=== PATIENT | male | born 1985 | race Two or more races ===

== ENCOUNTER 2024-08-21 16:00 | Emergency (ER) | payer OTHER ==
[~2024-08-21] VITALS: Ht 160 cm; Wt 104.8 kg
[~2024-08-21 16:00] MED LIST: DIVA-139 PO; LEVO500T31 PO; METR500T PO
[2024-08-21 16:59] VITALS: BP 115/82; RESP 18; TEMP 97.9; O2SAT 97
[2024-08-21] MEDS: SODIUM CHLORIDE 0.9% 500 ML IV ONE (17:16)
[2024-08-21] MEDS: cefTRIAXone 1GM/50ML D5W 50 ML IV ONE (17:38)
[2024-08-21] MEDS ORDERED: PSEU120T18 PO (17:50)
[2024-08-21] MEDS ORDERED: AUG875T PO (17:50)
[2024-08-21] MEDS ORDERED: AZIT-43 PO (17:50)
[2024-08-21 17:58] VITALS: PULSE 111
[2024-08-21 18:10] LABS: Basophils # (auto) 0 10 ^3/uL (0-0.2); Basophils % (auto) 0.5 % (0.0-2.0); Eosinophils # (auto) 0.1 10 ^3/uL (0-0.8); Eosinophils % (auto) 1.4 % (0.0-7.0); Hemoglobin 13.9 g/dL (13.5-17.5); Lymphocytes # (auto) 1.2 10 ^3/uL (0.4-5.4); Lymphocytes % (auto) 14.7 % (10.0-50.0); Mean Corpuscular Hemoglobin 31.1 pg (28.0-32.0); Mean Corpuscular Hgb Conc. 32.4 g/dL (32.0-36.0); Monocytes # (auto) 0.5 10 ^3/uL (0-1.3); Monocytes % (auto) 6.4 % (0.0-12.0); Neutrophils # (auto) 6.2 10 ^3/uL (1.6-8.6); Nucleated Red Blood Cells % 0.1 %; Platelet Count (auto) 191 10^3/uL (140-450); Red Blood Cells 4.47 10^6/uL (4.5-5.90); Red Cell Distribution Width 13.9 % (11.8-14.3)
[2024-08-21 18:15] LABS: Chloride 114 mmol/L (98-107); Potassium 4.4 mmol/L (3.5-5.1); Sodium 141 mmol/L (136-145)
[2024-08-21 18:17] LABS: Anion Gap 4 (5-15); Carbon Dioxide 23 mmol/L (20-31)
[2024-08-21 18:22] LABS: BUN/Creatinine Ratio 9.3 (10.0-20.0); Blood Urea Nitrogen 10 mg/dL (9-23); Glucose 149 mg/dL (74-106)
== END 2024-08-21 18:00 | disposition home or self-care (01) ==
LOC: ER 16:08
DX: J18.9 Pneumonia, unspecified organism (principal)
CPT/HCPCS: 36415; 71046; 80048; 83880; 85025; 93005; 96365; 99285; J0696; J7040

== ENCOUNTER 2024-09-03 11:55 | Inpatient (IN) | payer OTHER ==
[~2024-09-03] VITALS: Ht 160 cm; Wt 92.9 kg
[~2024-09-03 11:55] MED LIST changes: +AUG875T PO; +AZIT-43 PO; +FURO20TA3 PO; +PSEU120T18 PO
--- NOTE | 2024-09-03 12:09 | ED.PDOC ---
SOB-HPI HPI Comments 39Y M with PMHx schizophrenia, prediabetes, skin graft surgery, and chol ecystectomy presents to ED for chief complaint SOB with cough x1day. Pt has tried using nasal spray and Mucinex but symptoms have not improved. Pt denies alcohol, illicit drug, and tobacco use. No known allergies. Chief Complaint: Shortness of Breath Time Seen by MD: 12:01 Primary Care Provider: ZION Jewell notes: Medications, Allergies Information Source: Patient Mode of Arrival: Ambulatory Severity: Mild Timing: Days Duration: Since onset Context: At Rest PE Risk Factors: None History of: None Modifying Factors: Nothing Associated Signs and Symptoms: Cough If cough with SOB: Non-Productive Past Medical History PAST MEDICAL HISTORY: Schizophrenia Past Medical History (Other): Prediabetes Surgical History: Cholecystectomy, Denies all surgeries Surgical History (Other): Skin graft Family History Family History: Unknown Social History Smoker: Non-Smoker Alcohol: Denies ETOH Use Drugs: Denies Drug Use Lives In: Home Constitutional: denies: chills, diaphoresis, fatigue, fever, malaise, sweats, weakness, others EENTM: denies: blurred vision, double vision, ear bleeding, ear discharge, ear drainage, ear pain, ear ringing, eye pain, eye redness, hearing loss, mouth pain, mouth swelling, nasal discharge, nose bleeding, nose congestion, nose pain, photophobia, tearing, throat pain, throat swelling, voice changes, others Respiratory: reports: cough, shortness of breath; denies: hemoptysis, orthopnea, SOB at rest, SOB with excertion, stridor, wheezing, others Cardiovascular: denies: chest pain, dizzy spells, diaphoresis, Dyspnea on exertion, edema, irregular heart beat, left arm pain, lightheadedness, palpit ations, PND, syncope, others Gastrointestinal: denies: abdomen distended, abdominal pain, blood streaked b owels, constipated, diarrhea, dysphagia, difficulty swallowing, hematemesis, melena, nausea, poor appetite, poor fluid intake, rectal bleeding, rectal pain, vomiting, others Genitourinary: denies: burning, dysuria, flank pain, frequency, hematuria, incontinence, penile discharge, penile sore, pain, testicle pain, testicle swelling, urgency, others Neurological: denies: dizziness, fainting, headache, left sided numbness, left sided weakness, numbness, paresthesia, pre-existing deficit, right sided numbness, right sided weakness, seizure, speech problems, tingling, tremors, weakness, others Musculoskeletal: denies: back pain, gout, joint pain, joint swelling, muscle pain, muscle stiffness, neck pain, others Integumetry: denies: bruises, change in color, change in hair/nails, dryness, laceration, lesions, lumps, rash, wounds, others Allergic/Immunocompromised: denies: Difficulty Healing, Frequent Infections, Hives, Itching, others Hematologic/Lymphatic: denies: anemia, blood clots, easy bleeding, easy bruisi ng, swollen glands, others Endocrine: denies: excessive hunger, excessive sweating, excessive thirst, exce ssive urination, flushing, intolerance to cold, intolerance to heat, unexplained weight gain, unexplained weight loss, others Psychiatric: denies: anxiety, bipolar disorder, depression, hopeless, panic disorder, schizophrenia, sleepless, suicidal, others All Other Systems: Reviewed and Negative Physical Exam General Appearance: No Apparent Distress, Normal HEENT: Normal ENT Inspection, Pharynx Normal, TMs Normal Neck: Full Range of Motion, Non-Tender, Normal, Normal Inspection Respiratory: Chest Non-Tender, Lungs Clear, No Accessory Muscle Use, No Respiratory Distress, Normal Breath Sounds Cardiovascular: No Edema, No JVD, No Murmur, No Gallop, Normal Peripheral Pulses, Regular Rate/Rhythm Breast Exam: Deferred Gastrointestinal: No Organomegaly, Non Tender, No Pulsatile Mass, Normal Bowel Sounds, Soft Genitalia: Deferred Pelvic: Deferred Rectal: Deferred Extremities: No calf tenderness, Normal capillary refill, Normal inspection, Normal range of motion, Non-tender, No pedal edema Musculoskeletal : Apperance: Normal Neurologic: Alert, 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 Was a procedure done?: No Differential Dx Differential Diagnosis: Anxiety, Asthma, Bronchitis, Cardiogenic Shock, CHF, COPD, Dysrhythmia, Hypertension, Hyperventilation, Hyponatremia, Myocardial infarction, Panic Attack, Pneumonia, Pneumothorax, PSVT, Pulmonary Embolism, Respiratory Distress, URI X-Ray, Labs, Meds, VS Vital Signs Date Time Temp Pulse Resp B/P (MAP) Pulse Ox O2 Delivery O2 Flow Rate FiO2 09/03/24 14:39 117 09/03/24 13:54 118 20 98/68 (78) 98 09/03/24 13:54 118 20 98 Room Air* 0 21 09/03/24 12:04 97.9 120 18 110/68 (82) 96 Lab Test 09/03/24 14:01 Range/Units White Blood Count 8.5 4.4-10.8 10^3/uL Red Blood Count 4.67 4.5-5.90 10^6/uL Hemoglobin 14.5 13.5-17.5 g/dL Hematocrit 44.4 41.0-53.0 % Mean Corpuscular Volume 95.1 80.0-100.0 fL Mean Corpuscular Hemoglobin 31.1 28.0-32.0 pg Mean Corpuscular Hemoglobin Concent 32.7 32.0-36.0 g/dL Red Cell Distribution Width 13.8 11.8-14.3 % Platelet Count 182 140-450 10^3/uL Mean Platelet Volume 10.8 6.9-10.8 fL Neutrophils (%) (Auto) 68.8 37.0-80.0 % Lymphocytes (%) (Auto) 21.5 10.0-50.0 % Monocytes (%) (Auto) 7.6 0.0-12.0 % Eosinophils (%) (Auto) 1.4 0.0-7.0 % Basophils (%) (Auto) 0.7 0.0-2.0 % Neutrophils # (Auto) 5.8 1.6-8.6 10 ^3/uL Lymphocytes # (Auto) 1.8 0.4-5.4 10 ^3/uL Monocytes # (Auto) 0.6 0-1.3 10 ^3/uL Eosinophils # (Auto) 0.1 0-0.8 10 ^3/uL Basophils # (Auto) 0.1 0-0.2 10 ^3/uL Nucleated Red Blood Cells 0.1 % Sodium Level 142 136-145 mmol/L Potassium Level 4.4 3.5-5.1 mmol/L Chloride Level 108 H 98-107 mmol/L Carbon Dioxide Level 25 20-31 mmol/L Anion Gap 9 5-15 Blood Urea Nitrogen 20 9-23 mg/dL Creatinine 1.35 H 0.700-1.30 mg/dL Glomerular Filtration Rate Calc 69 >90 mL/min BUN/Creatinine Ratio 14.8 10.0-20.0 Serum Glucose 101 74-106 mg/dL Calcium Level 10.0 8.7-10.4 mg/dL Troponin I High Sensitivity 2277 *H </=54 ng/L B-Type Natriuretic Peptide 893.73 0-100 pg/mL [place] [id number] Ph: [phone] DIAGNOSTIC IMAGING Diagnostic Imaging Report : [id number] Signed PATIENT: DOTTIE KENNEDY ACCT: [id number] UNIT: [id number] : 1985 LOC: ER ROOM / BED: / AGE / SEX: 39 / M ADM STATUS: REG ER SERVICE 1202 ORDERING PHYSICIAN: JACK MCGARRY MD PROCEDURE(s): CXRP - CHEST PORTABLE REASON: cough ORDER NUMBER(s): [id number], ACCESSION NUMBER(s): [id number] CHEST RADIOGRAPH Indication: Cough Technique: Single frontal view of the chest was obtained Comparison: 08/21/2024 FINDINGS: Lines and Tubes: None Lungs: Bilateral interstitial prominence without focal airspace disease. Pleura: No effusion. No pneumothorax. Cardiomediastinal contours: Cardiomegaly. Bones: No acute osseous abnormality. IMPRESSION: 1. Pulmonary congestion. ATED BY: RASHEEDA LOVE MD DICTATED DATE/TIME: 09/03/241254 SIGNED BY: RASHEEDA LOVE MD SIGNED DATE/TIME: 09/03/241254 CC: Time of 1ST Reevaluation: 12:31 Reevaluation 1ST: Unchanged Time of 2ND Reevaluation: 15:04 Reevaluation 2ND: Unchanged Patient Education/Counseling: Diagnosis, Treatment Family Education/Counseling: No Family Present Additional Information although pt does not have any cardiac history, he has elevated TROP, consisting with NSTEMI, and evidence of CHF. he will be admitted Departure 1 Departure Time of Disposition: 15:05 Impression: Primary Impression: NSTEMI (non-ST elevated myocardial infarction) Additional Impression: CHF (congestive heart failure) Qualified Codes: I50.21 - Acute systolic (congestive) heart failure Disposition: ADMITTED INPATIENT Admit to: ICU Condition: Serious Critical Care Note Critical Care Time?: Yes (55 min-critical care time only) Critical care comment: due to real concerns for pt's condition deteriorating, the patient's care required my highest level of attention and prepareness to intervene. i assessed this patient, formulated a plan of care, communicated with medical personnel,reveiwed data and results,and conversed with chain sales consultant, reassessed the patient's condition and response to treatments. total time include at least 50% face-face interactions and does not include any procedures Stability Stability form required: No Heart Score Heart Score: Heart Score Response (Comments) Value History Slightly Suspicious 0 EKG Repolarization Disturb 1 Age <45 0 Risk Factors No known risk factors 0 Troponin >3 x's Normal limit 2 Total 3 I personally scribed for JACK MCGARRY MD ([employer]) on 09/03/24 at 12:09. Electronically submitted by Loida Qiu ([employer]). I personally scribed for JACK MCGARRY MD ([email or web address]) on 09/03/24 at 13:24. Electronically submitted by Loida Qiu ([employer]). JACK MCGARRY MD Sep 03, 2024 12:09
--- NOTE | 2024-09-03 12:57 | DVH ---
CHEST RADIOGRAPH Indication: Cough Technique: Single frontal view of the chest was obtained Comparison: 08/21/2024 FINDINGS: Lines and Tubes: None Lungs: Bilateral interstitial prominence without focal airspace disease. Pleura: No effusion. No pneumothorax. Cardiomediastinal contours: Cardiomegaly. Bones: No acute osseous abnormality. IMPRESSION: 1. Pulmonary congestion.
[2024-09-03 13:54] VITALS: PULSE 118; RESP 20; O2SAT 98
[2024-09-03 14:12] LABS: Basophils # (auto) 0.1 10 ^3/uL (0-0.2); Basophils % (auto) 0.7 % (0.0-2.0); Eosinophils # (auto) 0.1 10 ^3/uL (0-0.8); Eosinophils % (auto) 1.4 % (0.0-7.0); Hematocrit 44.4 % (41.0-53.0); Hemoglobin 14.5 g/dL (13.5-17.5); Lymphocytes # (auto) 1.8 10 ^3/uL (0.4-5.4); Lymphocytes % (auto) 21.5 % (10.0-50.0); Mean Corpuscular Hemoglobin 31.1 pg (28.0-32.0); Mean Corpuscular Hgb Conc. 32.7 g/dL (32.0-36.0); Mean Corpuscular Volume 95.1 fL (80.0-100.0); Monocytes # (auto) 0.6 10 ^3/uL (0-1.3); Monocytes % (auto) 7.6 % (0.0-12.0); Neutrophils # (auto) 5.8 10 ^3/uL (1.6-8.6); Neutrophils % (auto) 68.8 % (37.0-80.0); Nucleated Red Blood Cells % 0.1 %; Platelet Count (auto) 182 10^3/uL (140-450); Red Blood Cells 4.67 10^6/uL (4.5-5.90); Red Cell Distribution Width 13.8 % (11.8-14.3); White Blood Cell 8.5 10^3/uL (4.4-10.8)
[2024-09-03 14:37] LABS: Chloride 108 mmol/L (98-107); Potassium 4.4 mmol/L (3.5-5.1); Sodium 142 mmol/L (136-145)
[2024-09-03 14:38] LABS: Anion Gap 9 (5-15); Carbon Dioxide 25 mmol/L (20-31)
[2024-09-03 14:43] LABS: BUN/Creatinine Ratio 14.8 (10.0-20.0); Blood Urea Nitrogen 20 mg/dL (9-23); Glucose 101 mg/dL (74-106)
--- NOTE | 2024-09-03 15:05 | ECG ---
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
[2024-09-03] MEDS: NTG 0.1MG/HR TOPICAL PATCH TD ONE (15:18)
[2024-09-03] MEDS: FUROSEMIDE 40 MG/4 ML VIAL IV ONE (15:21)
[2024-09-03] MEDS: ASPirin 325 MG TAB PO ONE (15:21)
--- NOTE | 2024-09-03 15:41 | ECG ---
[facility] Test Date: 2024-09-03 Test Time: 15:40:25 Pat Name: DOTTIE KENNEDY Department: ED Room: 0265D Gender: M Cell Manager: : 1985 Requested By: JACK MCGARRY Order Number: [id number] Reading MD: Thad Apple Measurements Intervals [place] Rate: 121 P: 78 MN: 164 QRS: 0 QRSD: 101 T: 17 QT: 328 QTc: 466 Interpretive Statements Sinus tachycardia Probable left atrial enlargement Anterior infarct, old Electronically Signed On 09-07-2024 11:14:38 PST by Thad Apple Please click the below link to view image of tracing.
[2024-09-03] MEDS ORDERED: HYDROcodone-ACET 5/325MG TAB PO PRN (17:00)
[2024-09-03] MEDS ORDERED: NITROGLYCERIN 0.4 MG SL TAB SL PRN (17:00)
[2024-09-03] MEDS ORDERED: MORPHINE SULFATE INJ 2 MG/ml SYRG IV PRN ×2 (17:00)
[2024-09-03] MEDS ORDERED: ACETAMINOPHEN 325 MG TAB PO PRN (17:00)
[2024-09-03 17:23] LABS: Triglycerides 92 mg/dL (< 150)
[2024-09-03 17:24] LABS: LDL Cholesterol 66 mg/dL (< 100)
[2024-09-03 17:25] LABS: Cholesterol 112 mg/dL (< 200); HDL Cholesterol 34 mg/dL (40-59)
--- NOTE | 2024-09-03 17:27 | DVHHP2 ---
History of Present Illness Reason for Visit: Shortness of breath History of Present Illness This 39-year-old male with past medical history of schizophrenia, prediabetes, and obesity presents in the ED with a chief complaint of shortness of breath x1 day. The patient reports progressive shortness of breath associated with cough, chest pain that is sharp in nature, left arm numbness with tingling sensation started yesterday. Patient states that he is currently taking antibiotic for pneumonia from his recent ED visit. The patient denies history of NE or CHF. Reports history of ASD. Denies tobacco, illicit drug, or ETOH abuse. Past Medical History As stated in HPI Past Surgical History Cholecystectomy Family History Reviewed, non-contributory to the management of this case. Past Social History The patient lives at home, denies smoking, alcohol or illicit drugs abuse. Review of Systems Constitutional: Yes: Malaise; No: Fever, Chills, Sweats, Weakness, Other Eyes: No: Pain, Vision change, Conjunctivae inflammation, Eyelid inflammation, Other, Redness ENT: No: Ear pain, Ear discharge, Nose pain, Nose discharge, Nose congestion, Mouth pain, Mouth swelling, Throat pain, Throat swelling, Other Respiratory: Cough, Shortness of breath; No: Dry, SOB with excertion, Wheezing, Hemoptysis, Pleuritic Pain, Sputum, Wheezing, Other Cardiovascular: Chest Pain; No: Palpitations, Orthopnea, Paroxysmal Noc. Dyspnea, Edema, Lt Headedness, Other Gastrointestinal: No: Nausea, Vomiting, Abdominal Pain, Diarrhea, Constipation, Melena, Hematochezia, Other Genitourinary: No Dysuria, No Frequency, No Incontinence, No Hematuria, No Retention, No Other Musculoskeletal: No: other, neck pain, shoulder pain, arm pain, back pain, hand pain, leg pain, foot pain Skin: No: Rash, Lesions, Jaundice, Bruising, Other Neurological: No: Weakness, Numbness, Incoordination, Change in speech, Confusion, Seizures, Other Allergies: Coded Allergies: NO KNOWN ALLERGIES (Unverified , 04/02/19) Exam Vital Signs Vital Signs Date Time Temp Pulse Resp B/P (MAP) Pulse Ox O2 Delivery O2 Flow Rate FiO2 09/03/24 16:18 118/80 09/03/24 15:15 61 09/03/24 13:54 20 98 11/3/24 13:54 Room Air* 0 21 11/3/24 12:04 97.9 General Appearance: Alert, Oriented X3, Cooperative, mild distress HEENT: Atraumatic, PERRLA, EOMI, Mucous membr. moist/pink Respiratory: Clear to auscultation, Normal air movement Cardiovascular: Regular rate, Normal S1, Normal S2 Abdominal: Normal bowel sounds, Soft, No tenderness Extremities: No clubbing, No cyanosis, No edema Skin: No rashes, No breakdown, No significant lesion Neuro: Normal gait, Normal speech, Strength at 5/5 X4 ext, Normal tone, Sensation intact Psych/Mental Status: Mental status NL Labs/Xrays Labs Test 09/03/24 15:02 09/03/24 14:01 Range/Units Troponin I High Sensitivity 2403 *H </=54 ng/L White Blood Count 8.5 4.4-10.8 10^3/uL Red Blood Count 4.67 4.5-5.90 10^6/uL Hemoglobin 14.5 13.5-17.5 g/dL Hematocrit 44.4 41.0-53.0 % Mean Corpuscular Volume 95.1 80.0-100.0 fL Mean Corpuscular Hemoglobin 31.1 28.0-32.0 pg Mean Corpuscular Hemoglobin Concent 32.7 32.0-36.0 g/dL Red Cell Distribution Width 13.8 11.8-14.3 % Platelet Count 182 140-450 10^3/uL Mean Platelet Volume 10.8 6.9-10.8 fL Neutrophils (%) (Auto) 68.8 37.0-80.0 % Lymphocytes (%) (Auto) 21.5 10.0-50.0 % Monocytes (%) (Auto) 7.6 0.0-12.0 % Eosinophils (%) (Auto) 1.4 0.0-7.0 % Basophils (%) (Auto) 0.7 0.0-2.0 % Neutrophils # (Auto) 5.8 1.6-8.6 10 ^3/uL Lymphocytes # (Auto) 1.8 0.4-5.4 10 ^3/uL Monocytes # (Auto) 0.6 0-1.3 10 ^3/uL Eosinophils # (Auto) 0.1 0-0.8 10 ^3/uL Basophils # (Auto) 0.1 0-0.2 10 ^3/uL Nucleated Red Blood Cells 0.1 % Sodium Level 142 136-145 mmol/L Potassium Level 4.4 3.5-5.1 mmol/L Chloride Level 108 H 98-107 mmol/L Carbon Dioxide Level 25 20-31 mmol/L Anion Gap 9 5-15 Blood Urea Nitrogen 20 9-23 mg/dL Creatinine 1.35 H 0.700-1.30 mg/dL Glomerular Filtration Rate Calc 69 >90 mL/min BUN/Creatinine Ratio 14.8 10.0-20.0 Serum Glucose 101 74-106 mg/dL Calcium Level 10.0 8.7-10.4 mg/dL B-Type Natriuretic Peptide 893.73 0-100 pg/mL PROCEDURE(s): CXRP - CHEST PORTABLE REASON: cough ORDER NUMBER(s): [id number], ACCESSION NUMBER(s): [id number] CHEST RADIOGRAPH Indication: Cough Technique: Single frontal view of the chest was obtained Comparison: 08/21/2024 FINDINGS: Lines and Tubes: None Lungs: Bilateral interstitial prominence without focal airspace disease. Pleura: No effusion. No pneumothorax. Cardiomediastinal contours: Cardiomegaly. Bones: No acute osseous abnormality. IMPRESSION: 1. Pulmonary congestion. Assessment/Plan Assessment/Plan # NSTEMI # Rule out CHF # ?hx of ASD # pulmonary congestion Admit to [facility] ACS protocol--heparin drip, aspirin, statins IV diuresis Cardiology consult Echocardiogram NPO after midnight Repeat x-ray in a.m. # Rule out PE V/Q scan pending heparin gtt # ANNIE, possible VMN, possible cardiorenal Soft IV fluid Consider Nephrology consult if does not improve Monitor intake and output # morbid obesity # prediabetes Lifestyle modification counseled with diet, regular exercise, and weight loss Check lipid panel, A1c, TSH # hx schizophrenia Medical plan discussed patient Plan discussed with: Patient Date of Service: Sep 03, 2024 Billing Provider: RACHEL SHAH Common Visit Codes: 43275-[id number] INP/OBS CARE (HIGH) RACHEL SHAH Sep 03, 2024 17:27
[2024-09-03 17:40] LABS: INR 1.35 (0.9-1.15); Partial Thromboplastin Time 25.4 SEC (24.5-34.5)
[2024-09-03] MEDS: HEPARIN SODIUM (PORCINE) 5000 UNITS/ML 1ML VIAL IV ONE (18:00)
[2024-09-03] MEDS: HEPARIN DRIP/D5W 100UNITS/ML 250 ML IV SCH (18:00)
[2024-09-03] MEDS: METOPROLOL TARTRATE 1MG/1ML-5ML VIAL IV ONE (18:14)
[2024-09-03] MEDS: ALPRAZolam 0.25 MG TAB PO ONE (18:15)
[2024-09-03 19:30] VITALS: PULSE 113; RESP 26; O2SAT 92
[2024-09-03 20:15] LABS: Basophils # (auto) 0.1 10 ^3/uL (0-0.2); Hemoglobin 14.5 g/dL (13.5-17.5); Mean Corpuscular Hgb Conc. 32.5 g/dL (32.0-36.0); Nucleated Red Blood Cells % 0.1 %; Red Blood Cells 4.68 10^6/uL (4.5-5.90); White Blood Cell 8.3 10^3/uL (4.4-10.8)
[2024-09-03 20:18] LABS: Basophils % (auto) 1.2 % (0.0-2.0); Eosinophils # (auto) 0.1 10 ^3/uL (0-0.8); Eosinophils % (auto) 1.5 % (0.0-7.0); Hematocrit 44.6 % (41.0-53.0); Lymphocytes # (auto) 1.8 10 ^3/uL (0.4-5.4); Lymphocytes % (auto) 21.3 % (10.0-50.0); Mean Corpuscular Volume 95.4 fL (80.0-100.0); Monocytes # (auto) 0.6 10 ^3/uL (0-1.3); Monocytes % (auto) 6.8 % (0.0-12.0); Neutrophils # (auto) 5.7 10 ^3/uL (1.6-8.6); Neutrophils % (auto) 69.2 % (37.0-80.0); Platelet Count (auto) 194 10^3/uL (140-450); Red Cell Distribution Width 14.3 % (11.8-14.3)
[2024-09-03] MEDS: ATORVASTATIN 20 MG TAB PO SCH (21:53)
[2024-09-04] VITALS (26 sets, daily range): BP systolic 92–119; BP diastolic 60–88; PULSE 94–116; RESP 12–29; TEMP 97.4–98.3; O2SAT 93–98
[2024-09-04 00:48] LABS: INR 1.47 (0.9-1.15); Partial Thromboplastin Time 33.7 SEC (24.5-34.5); Prothrombin Time 15.1 sec (9.3-11.8)
[2024-09-04] MEDS: HEPARIN SODIUM (PORCINE) 5000 UNITS/ML 1ML VIAL IV ONE (01:13)
[2024-09-04] MEDS: HEPARIN DRIP/D5W 100UNITS/ML 250 ML IV SCH ×3 (01:13→22:56)
[2024-09-04 02:31] LABS: Amphetamine Screen, Urine Neg (NEGATIVE); Barbiturate Scree,Urine Neg (NEGATIVE); Benzodiazephine Screen, Urine Pos (NEGATIVE); Cocaine Screen, Urine Neg (NEGATIVE); Opiate Scree,Urine Neg (NEGATIVE); Phencyclidine Screen, Urine Neg (NEGATIVE)
[2024-09-04 02:32] LABS: Cannabinoid Screen, Urine Neg (NEGATIVE)
[2024-09-04 02:38] LABS: Urine Bacteria FEW /hpf (None Seen); Urine Blood Negative /uL (Negative); Urine Clarity Clear (Clear); Urine Color Yellow (Yellow); Urine Hyaline Cast MOD /lpf (0 - 2); Urine Mucus FEW (None Seen); Urine Protein, UAD 1+ (Negative); Urine Urobilinogen Normal (Negative); Urine WBC 1 /hpf (0 - 3); Urine pH 5.5 (5.0-9.0)
[2024-09-04 05:33] LABS: Basophils # (auto) 0.1 10 ^3/uL (0-0.2); Basophils % (auto) 0.7 % (0.0-2.0); Eosinophils # (auto) 0.1 10 ^3/uL (0-0.8); Eosinophils % (auto) 1.4 % (0.0-7.0); Hematocrit 41.1 % (41.0-53.0); Hemoglobin 13.2 g/dL (13.5-17.5); Lymphocytes # (auto) 2.1 10 ^3/uL (0.4-5.4); Lymphocytes % (auto) 26.4 % (10.0-50.0); Mean Corpuscular Hemoglobin 30.6 pg (28.0-32.0); Mean Corpuscular Volume 95.7 fL (80.0-100.0); Monocytes # (auto) 0.8 10 ^3/uL (0-1.3); Monocytes % (auto) 9.7 % (0.0-12.0); Neutrophils % (auto) 61.8 % (37.0-80.0); Nucleated Red Blood Cells % 0.2 %; Platelet Count (auto) 177 10^3/uL (140-450); Red Cell Distribution Width 13.9 % (11.8-14.3)
[2024-09-04 05:47] LABS: Alanine Aminotransferase 37 U/L (7-40); Albumin 4.1 g/dL (3.2-4.8); Alkaline Phosphatase 60 U/L (46-116); Anion Gap 5 (5-15); Aspartate Aminotransferase 33 U/L (13-40); BUN/Creatinine Ratio 12.8 (10.0-20.0); Blood Urea Nitrogen 17 mg/dL (9-23); Calcium 9.4 mg/dL (8.7-10.4); Carbon Dioxide 27 mmol/L (20-31); Chloride 107 mmol/L (98-107); Glucose 105 mg/dL (74-106); Potassium 4.4 mmol/L (3.5-5.1); Sodium 139 mmol/L (136-145)
[2024-09-04 05:48] LABS: Bilirubin, Total 1.4 mg/dL (0.2-1.0); Total Protein 6.3 g/dL (5.7-8.2)
--- NOTE | 2024-09-04 07:11 | DVH ---
CLINICAL INFORMATION: 39 years old, Male; Pulmonary Congestion. TECHNIQUE: Single AP portable chest radiograph was obtained. COMPARISON: XY CHEST PORTABLE on DOS: 09/03/24 FINDINGS: Unchanged cardiomegaly and prominence of the pulmonary vasculature. Small right pleural effusion with overlying atelectasis, may be new or more conspicuous compared with the prior exam. No other signifi cant interval change. No pneumothorax. IMPRESSION: 1. Findings consistent with pulmonary vascular congestion, similar to the prior exam. 2. Small right pleural effusion with overlying atelectasis, new or more conspicuous compared to the p rior exam.
[2024-09-04] MEDS: FUROSEMIDE 20 MG/2 ML VIAL IV SCH (08:44)
[2024-09-04] MEDS: ASPirin 81 mg TAB PO SCH (08:45)
[2024-09-04 09:07] LABS: INR 1.52 (0.9-1.15); Prothrombin Time 15.6 sec (9.3-11.8)
[2024-09-04 09:09] LABS: Partial Thromboplastin Time 88.2 SEC (24.5-34.5)
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
--- NOTE | 2024-09-04 12:43 | DVHPN2 ---
Subjective Patient continues to have shortness of breath Reviewed: Care Plan, H&P, Labs, Medications Changes from previous H/P or p: No Changes Eyes: No Pain, No Vision change, No Conjunctivae inflammation, No Eyelid inflammation, No Other, No Redness ENT: No Ear pain, No Ear discharge, No Nose pain, No Nose discharge, No Nose congestion, No Mouth pain, No Mouth swelling, No Throat pain, No Throat swelling, No Other Cardiovascular: Chest Pain; No Palpitations, No Orthopnea, No Paroxysmal Noc. Dyspnea, No Edema, No Lt Headedness, No Other Respiratory: Cough; No Dry; Shortness of breath; No SOB with excertion, No Wheezing, No Hemoptysis, No Pleuritic Pain, No Sputum, No Other Gastrointestinal: No Nausea, No Vomiting, No Abdominal Pain, No Diarrhea, No Constipation, No Melena, No Hematochezia, No Other Genitourinary: No Dysuria, No Frequency, No Incontinence, No Hematuria, No Retention, No Other Musculoskeletal: No other, No neck pain, No shoulder pain, No arm pain, No back pain, No hand pain, No leg pain, No foot pain Skin: No Rash, No Lesions, No Jaundice, No Bruising, No Other Objective Vitals Vital Signs Date Time Temp Pulse Resp B/P (MAP) Pulse Ox O2 Delivery O2 Flow Rate FiO2 09/04/24 10:00 97.9 94 18 116/82 (93) 93 97.9 09/04/24 08:00 Nasal Cannula* 2 28 Intake/Output Intake and Output 09/04/24 07:00 Intake Total 135 ml Output Total 400 ml Balance -265 ml IV Total 135 ml Output Urine Total 400 ml General Appearance: Alert, Oriented X3, Cooperative, No acute distress HEENT: Atraumatic, PERRLA Lungs: Clear to auscultation, Normal air movement Cardiovascular: Normal S1, Normal S2 Abdomen: Normal bowel sounds, Soft, No tenderness Genitourinary: No Apparent Abnormalities Musculoskeletal: Normal sensory function, Normal motor function Extremities: No clubbing, No cyanosis, Normal pulses Neuro: Normal gait, Normal speech Psych/Mental Status: Mental status NL, Mood NL Medications Current Medications Medications Dose Ordered Sig/Albert Route Start Time Stop Time Status Last Admin Dose Admin Acetaminophen/ Hydrocodone Bitart 1 tab Q4HP PRN PO 09/03/24 17:00 Ondansetron HCl 4 mg Q4HP PRN IV 09/03/24 17:00 Acetaminophen 650 mg Q6HP PRN PO 09/03/24 17:00 Morphine Sulfate 2 mg Q4HPRN PRN IV 09/03/24 17:00 Nitroglycerin 0.4 mg Q5MINP PRN SL 09/03/24 17:00 Morphine Sulfate 2 mg Q30M PRN IV 09/03/24 17:00 Aspirin 81 mg DAILY PO 09/04/24 10:00 09/04/24 08:45 81 MG Atorvastatin Calcium 40 mg HS PO 09/03/24 22:00 09/03/24 21:53 40 MG Heparin Sodium/ Dextrose 250 ml @ 11 mls/hr [id number] IV 09/04/24 09:45 09/04/24 09:45 11 MLS/HR Furosemide 100 mg/ Dextrose 110 ml @ 2.75 mls/hr Q24H IV 09/04/24 11:30 Laboratory Results Laboratory Tests 09/04/24 05:14 Chemistry Test 09/03/24 14:01 09/04/24 05:14 Calcium Level 10.0 mg/dL (8.7-10.4) 9.4 mg/dL (8.7-10.4) Albumin 4.1 g/dL (3.2-4.8) Total Protein 6.3 g/dL (5.7-8.2) Coagulation Test 09/03/24 14:07 09/04/24 00:19 09/04/24 08:27 Prothrombin Time 14.0 sec (9.3-11.8) H 15.1 sec (9.3-11.8) H 15.6 sec (9.3-11.8) H Prothrombin Time INR 1.35 (0.9-1.15) H 1.47 (0.9-1.15) H 1.52 (0.9-1.15) H Activated Partial Thromboplast Time 25.4 SEC (24.5-34.5) 33.7 SEC (24.5-34.5) 88.2 SEC (24.5-34.5) *H Lipid panel Test 09/03/24 14:07 Cholesterol Level 112 mg/dL (< 200) HDL Cholesterol 34 mg/dL (40-59) L Triglycerides Level 92 mg/dL (< 150) Cardiac Markers Test 09/03/24 14:01 B-Type Natriuretic Peptide 893.73 pg/mL (0-100) LFT Test 09/04/24 05:14 Alanine Aminotransferase (ALT) 37 U/L (7-40) Alkaline Phosphatase 60 U/L (46-116) Aspartate Amino Transferase (AST) 33 U/L (13-40) Total Bilirubin 1.4 mg/dL (0.2-1.0) H HgA1c, TSH Test 09/03/24 14:07 Hemoglobin A1c 5.4 % A1C (<5.7) Thyroid Stimulating Hormone (TSH) 2.39 uIU/mL (0.55-4.78) Urinalysis Test 09/04/24 01:58 Urine Color Yellow (Yellow) Urine Clarity Clear (Clear) Urine pH 5.5 (5.0-9.0) Urine Specific [place] 1.020 (1.001-1.035) Urine Protein 1+ (Negative) H Urine Ketones Negative (Negative) Urine Blood Negative /uL (Negative) Urine Nitrite Negative (Negative) Urine Bilirubin Negative (Negative) Urine Urobilinogen Normal mg/dL (Negative) Urine Leukocyte Esterase Negative /uL (Negative) Urine RBC 1 /hpf (0 - 3) Urine WBC 1 /hpf (0 - 3) Urine Squamous Epithelial Cells Few /hpf (<5) Urine Bacteria Few /hpf (None Seen) H Urine Hyaline Casts Mod /lpf (0 - 2) Urine Mucus Few (None Seen) Urine Glucose Normal mg/dL (Normal) Labs and/or images reviewed: Labs reviewed by me, Image(s) reviewed by me Assessment/Plan Assessment/Plan Impression: -probable acute systolic heart failure -cardiomegaly -history of atrial septal defect -schizophrenia -NSTEMI, hold type 2 -obesity Plan: -further history of the patient reveals that he has had exertional dyspnea for approximately three weeks. The patient states that he also has stopped taking his Depakote for schizophrenia. Denies having any auditory or visual hallucinations and/or delusions -continue IV diuresis -continue heparin drip per Cardiology -patient to be tachycardic, add low-dose metoprolol tartrate -potassium magnesium replacement as needed. Recheck labs at 4:00 p.m. today -echocardiogram pending. Discussed with primary nurse to make this echocardiogram a bubble study to further diagnose ASD -. V/Q scan -repeat labs in a.m. Critical care time spent with patient discussing and formulating plan of care: 40 minutes. This does not include time spent performing procedures. This medical document was created using an electronic medical record system with [employer] system. Although this document has been carefully reviewed, there may still be some phonetic and typographical errors. These areas are purely typographical due to imperfections of the software programs, and do not reflect any compromise in the patient's medical care. Plan discussed with: Patient, Other (RN) My Orders Orders - JARAD HATFIELD NP Procedure Category Date Status Time Metoprolol Tartrate PHA 09/04/24 Transmitted Tablet (Lopressor Ta 12:45 Basic Metabolic Panel LAB 09/05/24 Verified 04:00 Complete Blood Count LAB 09/05/24 Verified 04:00 Chest Portable XY 09/05/24 Logged 04:00 Potassium LAB 09/04/24 Transmitted 16:00 Magnesium LAB 09/04/24 Transmitted 16:00 Date of Service: Sep 04, 2024 Billing Provider: JARAD HATFIELD NP Common Visit Codes: [id number] CARE 30-74 MIN JARAD HATFIELD NP Sep 04, 2024 12:43
[2024-09-04] MEDS: FUROSEMIDE INJECTION 100 MG in D5W 5% 100 ML IV SCH (13:30)
[2024-09-04] MEDS: METOPROLOL TARTRATE 25 MG TAB PO SCH (14:40)
[2024-09-04 16:59] LABS: Potassium 3.7 mmol/L (3.5-5.1)
[2024-09-04 17:05] LABS: Magnesium 2.1 mg/dL (1.6-2.6)
--- NOTE | 2024-09-04 17:07 | DVHSR ---
APPROVED REPORT EXAM: Two-dimensional and M-mode echocardiogram with Doppler, color Doppler and Bubble Study. Blood Pressure: 104/81 mmHg INDICATION NSTEMI RISK FACTORS Height: 5'3", Weight: 232 DIMENSIONS LVDd7.6 (3.8-5.7cm)LA (2D)5.1 (1.9-4.0cm)Aortic Root2.9 (2.0-3.7cm) LVDs7.3 (2.5-4.0cm)LA (MM) (1.9-4.0cm)Aortic Cusp Exc1.7 (1.5-2.0cm) EF (%) 8.3 (55-70%)Rt. Atrium6.4 (1.9-4.0cm)Asc. Aorta2.4 cm IVSd0.3 (0.7-1.1cm)RV (D)4.8 (1.8-2.4cm) PWd0.7 (0.7-1.1cm) Mitral Valve MitralMitral Stenosis E wave0.86m/sMV Mean GR.mmHg E/A ratio0.02D MVAcm2 Aortic Valve Aortic ValveAortic Stenosis V10.49m/Francesca Mean GR.2mmHg V20.85m/Francesca Peak GR.3mmHg LVOT Diameter2.2 (1.8-2.4cm)Doppler AVA2.19cm2 Pulmonic Valve V21.12m/s Tricuspid Valve TR Velocity2.55m/s [id number] Other Information Quality : Technically LimitedRhythm : Technically limited study due to body habitus. Conclusion Severely dilated left ventricular severely reduced left ventricular systolic function estimated eject ion fraction of 10-15%. Severely dilated right ventricle. Severely reduced right ventricular systolic function. Moderately elevated right ventricular systolic pressure at 45 mm of mercury Aortic valve appears normal structure and function. Severely dilated right and left atria. Moderate mitral valve regurgitation. Moderately severe tricuspid valve regurgitation. [id number] pulmonary valve regurgitation. No significant pericardial effusion.
[2024-09-04 17:19] LABS: INR 1.38 (0.9-1.15); Partial Thromboplastin Time 51.6 SEC (24.5-34.5); Prothrombin Time 14.3 sec (9.3-11.8)
[2024-09-04 22:29] LABS: INR 1.38 (0.9-1.15); Partial Thromboplastin Time 48.9 SEC (24.5-34.5); Prothrombin Time 14.3 sec (9.3-11.8)
[2024-09-05] VITALS (24 sets, daily range): BP systolic 90–120; BP diastolic 58–86; PULSE 87–120; RESP 10–35; TEMP 97.5–98.3; O2SAT 85–100
--- NOTE | 2024-09-05 04:49 | DVH ---
CHEST RADIOGRAPH Indication:chf Technique: Single frontal view of the chest was obtained COMPARISON: XY CHEST PORTABLE on DOS: 09/04/24, XY CHEST PORTABLE on DOS: 09/03/24, XY CHEST PORTABLE o n DOS: 09/03/24 FINDINGS: Lines and Tubes: None Lungs: Bilateral interstitial prominence without focal airspace disease. Pleura: No effusion. No pneumothorax. Cardiomediastinal contours: Cardiomegaly. Bones: No acute osseous abnormality. IMPRESSION: 1. Pulmonary congestion.
[2024-09-05 06:05] LABS: Basophils # (auto) 0 10 ^3/uL (0-0.2); Basophils % (auto) 0.6 % (0.0-2.0); Eosinophils # (auto) 0.1 10 ^3/uL (0-0.8); Eosinophils % (auto) 2.1 % (0.0-7.0); Hematocrit 40.8 % (41.0-53.0); Hemoglobin 13.2 g/dL (13.5-17.5); Lymphocytes % (auto) 28.6 % (10.0-50.0); Mean Corpuscular Hemoglobin 30.9 pg (28.0-32.0); Mean Corpuscular Hgb Conc. 32.5 g/dL (32.0-36.0); Mean Corpuscular Volume 95.2 fL (80.0-100.0); Monocytes # (auto) 0.6 10 ^3/uL (0-1.3); Monocytes % (auto) 9.2 % (0.0-12.0); Neutrophils # (auto) 4.2 10 ^3/uL (1.6-8.6); Neutrophils % (auto) 59.5 % (37.0-80.0); Nucleated Red Blood Cells % 0.1 %; Platelet Count (auto) 166 10^3/uL (140-450); Red Blood Cells 4.28 10^6/uL (4.5-5.90); Red Cell Distribution Width 13.9 % (11.8-14.3)
[2024-09-05 06:06] LABS: Chloride 103 mmol/L (98-107); Potassium 3.6 mmol/L (3.5-5.1); Sodium 139 mmol/L (136-145)
[2024-09-05 06:07] LABS: Anion Gap 6 (5-15); Calcium 9.2 mg/dL (8.7-10.4); Carbon Dioxide 30 mmol/L (20-31)
[2024-09-05 06:12] LABS: BUN/Creatinine Ratio 9.9 (10.0-20.0); Blood Urea Nitrogen 12 mg/dL (9-23); Glucose 94 mg/dL (74-106)
[2024-09-05 06:17] LABS: INR 1.42 (0.9-1.15); Partial Thromboplastin Time 59.8 SEC (24.5-34.5); Prothrombin Time 14.7 sec (9.3-11.8)
[2024-09-05] MEDS: EMPAGLIFLOZIN 10 MG TAB PO SCH (08:55)
[2024-09-05] MEDS: ONDANSETRON HCL 4 MG/2 ML VIAL IV PRN (09:18)
[2024-09-05] MEDS: FUROSEMIDE INJECTION 100 MG in D5W 5% 100 ML IV SCH (09:45)
[2024-09-05] MEDS: POTASSIUM EFFERVESENT TAB 25 MEQ PO ONE (09:46)
[2024-09-05] MEDS: ENOXAPARIN SOD 100 MG/1 ML SYRINGE SC SCH (09:48)
[2024-09-05] MEDS: MAGNESIUM OXIDE 400 MG TAB PO SCH (09:48)
[2024-09-05] MEDS: SPIRONOLACTONE 25 MG TAB PO SCH (09:48)
--- NOTE | 2024-09-05 10:16 | DVHPN2 ---
Consult Progress Note Subjective Other Systems: Patient had a nonsustained (5 beat run) of V-tach overnight. No new complaints. Objective vital signs Vital Sign Date Time Temp Pulse Resp B/P (MAP) Pulse Ox O2 Delivery O2 Flow Rate FiO2 09/05/24 09:45 106/74 09/05/24 09:00 105 22 09/05/24 08:00 97 Nasal Cannula* 2 28 09/05/24 08:00 97.9 97.9 Total Intake and Output 09/04/24 09/04/24 09/05/24 15:00 23:00 07:00 Intake Total 97.50 ml 126.25 ml 846.00 ml Output Total 1830 ml 825 ml Balance 97.50 ml -1703.75 ml 21.00 ml medications Current Medications Medications Dose Ordered Sig/Albert Route Start Time Stop Time Status Last Admin Dose Admin Acetaminophen/ Hydrocodone Bitart 1 tab Q4HP PRN PO 09/03/24 17:00 Ondansetron HCl 4 mg Q4HP PRN IV 09/03/24 17:00 09/05/24 09:18 4 MG Acetaminophen 650 mg Q6HP PRN PO 09/03/24 17:00 Morphine Sulfate 2 mg Q4HPRN PRN IV 09/03/24 17:00 Nitroglycerin 0.4 mg Q5MINP PRN SL 09/03/24 17:00 Morphine Sulfate 2 mg Q30M PRN IV 09/03/24 17:00 Aspirin 81 mg DAILY PO 09/04/24 10:00 09/05/24 08:58 81 MG Atorvastatin Calcium 40 mg HS PO 09/03/24 22:00 09/04/24 21:25 40 MG Metoprolol Tartrate 12.5 mg BID PO 09/04/24 12:45 09/05/24 08:56 12.5 MG Empaglifozin 10 mg DAILY PO 09/05/24 10:00 09/05/24 08:55 10 MG Furosemide 100 mg/ Dextrose 110 ml @ 11 mls/hr Q10H IV 09/05/24 09:15 09/05/24 09:45 11 MLS/HR Spironolactone 25 mg DAILY PO 09/05/24 10:00 09/05/24 09:48 25 MG Enoxaparin Sodium 100 mg Q12HR SC 09/05/24 10:00 09/05/24 09:48 100 MG Magnesium Oxide 400 mg BID PO 09/05/24 10:00 09/05/24 09:48 400 MG Examination: GENERAL:Normal, LUNGS:Abnormal (Diminished bilateral lower lobes), CVS:Normal, NEURO:Normal laboratory and microbiology Laboratory Tests 09/05/24 05:00 Test 09/05/24 05:00 Range/Units Serum Glucose 94 74-106 mg/dL Problem List/Assessment/Plan Problem List/Assessment/Plan Acute on chronic decompensated HFrEF, NYHA class IV NSTEMI, type I vs II Dilated cardiomyopathy Nonsustained V-tach Tricuspid valve regurgitation, moderately severe degree Pulmonary valve regurgitation, mild to moderate degree HX of atrial septal defect (ASD) Acute kidney injury Morbid obesity, Class 3 Plan/Recommendation (Dr. Aragon): Patient seen and examined at bedside with . Transthoracic echocardiogram reveals an EF 10-15% with severely dilated right and left atria and RVSP 45 mmHg. The patient with biventricular heart failure, likely at end- stage heart failure. Continue GDMT for CHF as tolerated. Consider Entresto therapy when BP optimal. Continue lasix drip for diuresis as tolerated. Closely monitor creatinine. Strict intake and output, daily weights, and maintain fluid restriction. Patient would benefit from right and left heart catheterization. This facility does not have the capacity to do accurate measurements of cardiac output and cardiac resistance. Given this information, we will recommend for the patient to be transferred to higher level of care for further workup and determination of possible heart transplant. We will continue to follow closely. Thank you for allowing us to care for this patient. Please call with any questions or concerns. Critical care time spent: 45 minutes.This medical document was created using an electronic medical record system with voice recognition software and computerized dictation system. Although this document has been carefully reviewed, there might still be some phonetic and typographical errors. Occasional wrong-word or ``sound-alike substitutions may have occurred due to the inherent limitations of voice recognition software. These areas are purely typographical due to imperfections of the software programs and do not reflect any compromise in the patient's medical care. Please read the chart carefully and recognize, using context, where these substitutions have occurred. Plan discussed with: Patient Date of Service: Sep 05, 2024 Billing Provider: LACEY ARAGON MD Common Visit Codes: [id number] CARE 30-74 MIN JENNIFER PARIS [facility] Sep 05, 2024 10:16
--- NOTE | 2024-09-05 14:34 | CONS ---
Pharmacy Clinical Information: Patient from [facility] HF report. Patient has V-tach at this time, metoprolol tartrate preferred in this case for fast onset of action. Can consider succinate once patient is stable. VIVIANA RAYMOND PHARMACIST Sep 05, 2024 14:34
[2024-09-06] VITALS (24 sets, daily range): BP systolic 88–126; BP diastolic 52–87; PULSE 84–118; RESP 11–26; TEMP 97.7–98.3; O2SAT 95–100
--- NOTE | 2024-09-06 04:43 | DVH ---
CHEST RADIOGRAPH Indication:chf Technique: Single frontal view of the chest was obtained Comparison: XY CHEST PORTABLE on DOS: 09/05/24 FINDINGS: Lines and Tubes: None Lungs: There is pulmonary congestion. Pleura: There is a right pleural effusion. No pneumothorax. Cardiomediastinal contours: Cardiomegaly. Bones: No acute osseous abnormality. IMPRESSION: 1. Stable pulmonary congestion. 2. Right pleural effusion. 3. Stable cardiomegaly.
[2024-09-06 05:22] LABS: Anion Gap 5 (5-15); Carbon Dioxide 37 mmol/L (20-31); Chloride 97 mmol/L (98-107); Sodium 139 mmol/L (136-145)
[2024-09-06 05:23] LABS: Calcium 9.9 mg/dL (8.7-10.4)
[2024-09-06 05:28] LABS: BUN/Creatinine Ratio 10.6 (10.0-20.0); Blood Urea Nitrogen 15 mg/dL (9-23); Glucose 103 mg/dL (74-106)
[2024-09-06] MEDS: ENOXAPARIN SOD 40 MG/0.4 ML SYRINGE SC SCH (09:28)
[2024-09-06] MEDS: METOPROLOL SUCCINATE XL 50 MG TAB PO SCH (09:30)
--- NOTE | 2024-09-06 09:36 | DVHPN2 ---
Subjective Patient continues to have shortness of breath Reviewed: Care Plan, H&P, Labs, Medications Changes from previous H/P or p: No Changes Eyes: No Pain, No Vision change, No Conjunctivae inflammation, No Eyelid inflammation, No Other, No Redness ENT: No Ear pain, No Ear discharge, No Nose pain, No Nose discharge, No Nose congestion, No Mouth pain, No Mouth swelling, No Throat pain, No Throat swelling, No Other Cardiovascular: Chest Pain; No Palpitations, No Orthopnea, No Paroxysmal Noc. Dyspnea, No Edema, No Lt Headedness, No Other Respiratory: Cough; No Dry; Shortness of breath; No SOB with excertion, No Wheezing, No Hemoptysis, No Pleuritic Pain, No Sputum, No Other Gastrointestinal: No Nausea, No Vomiting, No Abdominal Pain, No Diarrhea, No Constipation, No Melena, No Hematochezia, No Other Genitourinary: No Dysuria, No Frequency, No Incontinence, No Hematuria, No Retention, No Other Musculoskeletal: No other, No neck pain, No shoulder pain, No arm pain, No back pain, No hand pain, No leg pain, No foot pain Skin: No Rash, No Lesions, No Jaundice, No Bruising, No Other Objective Vitals Vital Signs Date Time Temp Pulse Resp B/P (MAP) Pulse Ox O2 Delivery O2 Flow Rate FiO2 09/06/24 09:30 97 110/68 09/06/24 06:00 11 97 09/06/24 04:00 98.2 98.2 09/05/24 20:00 Nasal Cannula* 3 32 Intake/Output Intake and Output 09/06/24 07:00 Intake Total 1538.50 ml Output Total 4952 ml Balance -3413.50 ml Intake Oral 1280 ml IV Total 258.50 ml Output Urine Total 4950 ml Stool Total 2 ml General Appearance: Alert, Oriented X3, Cooperative, No acute distress HEENT: Atraumatic, PERRLA Lungs: Clear to auscultation, Normal air movement Cardiovascular: Normal S1, Normal S2 Abdomen: Normal bowel sounds, Soft, No tenderness Genitourinary: No Apparent Abnormalities Musculoskeletal: Normal sensory function, Normal motor function Extremities: No clubbing, No cyanosis, Normal pulses Neuro: Normal gait, Normal speech Psych/Mental Status: Mental status NL, Mood NL Medications Current Medications Medications Dose Ordered Sig/Albert Route Start Time Stop Time Status Last Admin Dose Admin Acetaminophen/ Hydrocodone Bitart 1 tab Q4HP PRN PO 09/03/24 17:00 Ondansetron HCl 4 mg Q4HP PRN IV 09/03/24 17:00 09/05/24 09:18 4 MG Acetaminophen 650 mg Q6HP PRN PO 09/03/24 17:00 Morphine Sulfate 2 mg Q4HPRN PRN IV 09/03/24 17:00 Nitroglycerin 0.4 mg Q5MINP PRN SL 09/03/24 17:00 Morphine Sulfate 2 mg Q30M PRN IV 09/03/24 17:00 Aspirin 81 mg DAILY PO 09/04/24 10:00 09/06/24 09:29 81 MG Atorvastatin Calcium 40 mg HS PO 09/03/24 22:00 09/05/24 21:24 40 MG Empaglifozin 10 mg DAILY PO 09/05/24 10:00 09/06/24 09:28 10 MG Furosemide 100 mg/ Dextrose 110 ml @ 11 mls/hr Q10H IV 09/05/24 09:15 09/06/24 04:20 11 MLS/HR Spironolactone 25 mg DAILY PO 09/05/24 10:00 09/06/24 09:28 25 MG Magnesium Oxide 400 mg BID PO 09/05/24 10:00 09/06/24 09:28 400 MG Enoxaparin Sodium 40 mg DAILY SC 09/06/24 10:00 09/06/24 09:28 40 MG Metoprolol Succinate 25 mg DAILY PO 09/06/24 10:00 09/06/24 09:30 25 MG Laboratory Results Laboratory Tests 09/05/24 05:00 09/06/24 04:53 Chemistry Test 09/06/24 04:53 Calcium Level 9.9 mg/dL (8.7-10.4) Urinalysis Test 09/04/24 01:58 Urine Color Yellow (Yellow) Urine Clarity Clear (Clear) Urine pH 5.5 (5.0-9.0) Urine Specific [place] 1.020 (1.001-1.035) Urine Protein 1+ (Negative) H Urine Ketones Negative (Negative) Urine Blood Negative /uL (Negative) Urine Nitrite Negative (Negative) Urine Bilirubin Negative (Negative) Urine Urobilinogen Normal mg/dL (Negative) Urine Leukocyte Esterase Negative /uL (Negative) Urine RBC 1 /hpf (0 - 3) Urine WBC 1 /hpf (0 - 3) Urine Squamous Epithelial Cells Few /hpf (<5) Urine Bacteria Few /hpf (None Seen) H Urine Hyaline Casts Mod /lpf (0 - 2) Urine Mucus Few (None Seen) Urine Glucose Normal mg/dL (Normal) Microbiology Microbiology Date/Time Source Procedure Growth Status 09/04/24 03:20 Nose MRSA Screen - Final Complete Labs and/or images reviewed: Labs reviewed by me, Image(s) reviewed by me Assessment/Plan Assessment/Plan Impression: -acute systolic and diastolic heart failure with ejection fraction 10%. -cardiomegaly -history of atrial septal defect -schizophrenia -NSTEMI, hold type 2 -obesity Plan: -events: Orders placed by Cardiology to transfer to higher level of care patient has improved diuresis. Heart rate also improved. -continue Lasix at 10 milligrams/hour -change to prophylactic Lovenox -blood pressure stable, changed to Toprol-XL -Continue with GDMT -continue Mag oxide -repeat labs in a.m. -transferred to telemetry floor Total time spent with patient discussing and formulating plan of care: 35 minutes. This medical document was created using an electronic medical record system with [employer] computerized dictation system. Although this document has been carefully reviewed, there may still be some phonetic and typographical errors. These areas are purely typographical due to imperfections of the software programs, and do not reflect any compromise in the patient's medical care. Plan discussed with: Patient, Other (RN) My Orders Orders - JARAD HATFIELD NP Procedure Category Date Status Time Enoxaparin Sodium PHA 09/06/24 In Process (Lovenox) 10:00 Transfer Orders XFER 09/06/24 Transmitted 08:58 Metoprolol Xl PHA 09/06/24 In Process Succinate (Toprol Xl) 10:00 Date of Service: Sep 06, 2024 Billing Provider: JARAD HATFIELD NP Common Visit Codes: [id number] INP/OBS CARE(HIGH) JARAD HATFIELD NP Sep 06, 2024 09:36
--- NOTE | 2024-09-06 09:40 | DVHPN2 ---
Consult Progress Note Date Seen: Sep 06, 2024 Subjective Review of Systems: CVS:Normal, RESPIRATORY:Normal, NEURO:Normal Other Systems: Able to ambulate, improved respiratory status Objective vital signs Vital Sign Date Time Temp Pulse Resp B/P (MAP) Pulse Ox O2 Delivery O2 Flow Rate FiO2 09/06/24 06:00 92 11 115/69 (84) 97 09/06/24 04:00 98.2 98.2 09/05/24 20:00 Nasal Cannula* 3 32 Total Intake and Output 09/05/24 09/05/24 09/06/24 14:59 22:59 06:59 Intake Total 469.25 ml 808 ml 277 ml Output Total 1602 ml 3350 ml Balance 469.25 ml -794 ml -3073 ml medications Current Medications Medications Dose Ordered Sig/Albert Route Start Time Stop Time Status Last Admin Dose Admin Acetaminophen/ Hydrocodone Bitart 1 tab Q4HP PRN PO 09/03/24 17:00 Ondansetron HCl 4 mg Q4HP PRN IV 09/03/24 17:00 09/05/24 09:18 4 MG Acetaminophen 650 mg Q6HP PRN PO 09/03/24 17:00 Morphine Sulfate 2 mg Q4HPRN PRN IV 09/03/24 17:00 Nitroglycerin 0.4 mg Q5MINP PRN SL 09/03/24 17:00 Morphine Sulfate 2 mg Q30M PRN IV 09/03/24 17:00 Aspirin 81 mg DAILY PO 09/04/24 10:00 09/05/24 08:58 81 MG Atorvastatin Calcium 40 mg HS PO 09/03/24 22:00 09/05/24 21:24 40 MG Empaglifozin 10 mg DAILY PO 09/05/24 10:00 09/05/24 08:55 10 MG Furosemide 100 mg/ Dextrose 110 ml @ 11 mls/hr Q10H IV 09/05/24 09:15 09/06/24 04:20 11 MLS/HR Spironolactone 25 mg DAILY PO 09/05/24 10:00 09/05/24 09:48 25 MG Magnesium Oxide 400 mg BID PO 09/05/24 10:00 09/05/24 21:24 400 MG Enoxaparin Sodium 40 mg DAILY SC 09/06/24 10:00 Metoprolol Succinate 25 mg DAILY PO 09/06/24 10:00 Examination: LUNGS:Abnormal (Bilaterally diminished. 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 Aragon) Transthoracic echocardiogram revealed an EF 10-15% with severely dilated right and left atria and RVSP 45 mmHg. The patient with biventricular heart failure is likely at end-stage heart failure and may be a candidate for heart transplant. Continue GDMT for CHF as tolerated. Initiate low-dose Entresto therapy, closely monitor creatinine. Continue lasix drip for diuresis as tolerated. Strict intake and output, daily weights, and maintain fluid restriction. Patient would benefit from right and left heart catheterization. This facility does not have the capacity to do accurate measurements of cardiac output and cardiac resistance. Given this information the patient will be transferred to higher level of care for further workup and determination of possible heart transplant. We will continue to follow closely. Thank you for allowing us to care for this patient. Please call with any questions or concerns. Critical care time spent: 45 minutes.This medical document was created using an electronic medical record system with voice recognition software and computerized dictation system. Although this document has been carefully reviewed, there might still be some phonetic and typographical errors. Occasional wrong-word or ``sound-alike substitutions may have occurred due to the inherent limitations of voice recognition software. These areas are purely typographical due to imperfections of the software programs and do not reflect any compromise in the patient's medical care. Please read the chart carefully and recognize, using context, where these substitutions have occurred. Plan discussed with: Patient, Other (Father) Date of Service: Sep 06, 2024 Billing Provider: LACEY ARAGON MD Cardiology Common Codes: [id number] HOSP CARE([facility] Sep 06, 2024 09:40
[2024-09-06] MEDS: SPIRONOLACTONE 25 MG TAB PO SCH (10:00)
[2024-09-06] MEDS: SACUBITRIL-VALSARTAN 24mg/26mg TAB PO SCH (10:00)
[2024-09-07] VITALS (41 sets, daily range): BP systolic 80–121; BP diastolic 46–72; PULSE 75–122; RESP 9–27; TEMP 97.4–98.7; O2SAT 84–100
[2024-09-07 05:00] LABS: Chloride 97 mmol/L (98-107); Potassium 3.5 mmol/L (3.5-5.1); Sodium 140 mmol/L (136-145)
[2024-09-07 05:01] LABS: Anion Gap 6 (5-15); Carbon Dioxide 37 mmol/L (20-31)
[2024-09-07 05:02] LABS: Calcium 9.6 mg/dL (8.7-10.4)
[2024-09-07 05:06] LABS: Glucose 103 mg/dL (74-106)
[2024-09-07 05:07] LABS: BUN/Creatinine Ratio 15.4 (10.0-20.0); Blood Urea Nitrogen 19 mg/dL (9-23)
[2024-09-07 08:06] LABS: Complement C3 146 mg/dL (82-167); Rheumatoid Arthritis Factor <10.0 IU/mL (<14.0)
[2024-09-07 09:25] LABS: Hepatitis B Core Total AB Negative (Negative)
[2024-09-07] MEDS: ERGOCALCIFEROL 50,000 UNIT(1.25MG) CAP PO SCH (10:00)
[2024-09-07] MEDS: FUROSEMIDE 40 MG/4 ML VIAL IV ONE (10:10)
--- NOTE | 2024-09-07 10:13 | DVHDS2 ---
Discharge Summary Date of Admission Sep 03, 2024 at 16:53 Date of Discharge: Sep 07, 2024 Admitting Diagnosis Rule out NSTEMI type 1 Labs/Diagnostic Data: Laboratory Results Test 09/07/24 04:29 09/06/24 09:50 09/06/24 04:53 09/05/24 05:00 Sodium Level 140 mmol/L (136-145) Potassium Level 3.5 mmol/L (3.5-5.1) Chloride Level 97 mmol/L (98-107) Carbon Dioxide Level 37 mmol/L (20-31) Anion Gap 6 (5-15) Blood Urea Nitrogen 19 mg/dL (9-23) Creatinine 1.23 mg/dL (0.700-1.30) Glomerular Filtration Rate Calc 78 mL/min (>90) BUN/Creatinine Ratio 15.4 (10.0-20.0) Serum Glucose 103 mg/dL (74-106) Calcium Level 9.6 mg/dL (8.7-10.4) Rheumatoid Factor <10.0 IU/mL (<14.0) Anti-Nuclear Antibody Comment Comment (.) Complement C3 146 mg/dL (82-167) Complement C4 37 mg/dL (12-38) HIV (1&2) Antibody Negative (Negative) B-Type Natriuretic Peptide 840.35 pg/mL (0-100) Vitamin B12 Level 685 pg/mL (211-911) Vitamin D 25-Hydroxy 9.1 ng/mL (30.0-100) White Blood Count 7.0 10^3/uL (4.4-10.8) Red Blood Count 4.28 10^6/uL (4.5-5.90) Hemoglobin 13.2 g/dL (13.5-17.5) Hematocrit 40.8 % (41.0-53.0) Mean Corpuscular Volume 95.2 fL (80.0-100.0) Mean Corpuscular Hemoglobin 30.9 pg (28.0-32.0) Mean Corpuscular Hemoglobin Concent 32.5 g/dL (32.0-36.0) Red Cell Distribution Width 13.9 % (11.8-14.3) Platelet Count 166 10^3/uL (140-450) Mean Platelet Volume 10.6 fL (6.9-10.8) Neutrophils (%) (Auto) 59.5 % (37.0-80.0) Lymphocytes (%) (Auto) 28.6 % (10.0-50.0) Monocytes (%) (Auto) 9.2 % (0.0-12.0) Eosinophils (%) (Auto) 2.1 % (0.0-7.0) Basophils (%) (Auto) 0.6 % (0.0-2.0) Neutrophils # (Auto) 4.2 10 ^3/uL (1.6-8.6) Lymphocytes # (Auto) 2.0 10 ^3/uL (0.4-5.4) Monocytes # (Auto) 0.6 10 ^3/uL (0-1.3) Eosinophils # (Auto) 0.1 10 ^3/uL (0-0.8) Basophils # (Auto) 0 10 ^3/uL (0-0.2) Nucleated Red Blood Cells 0.1 % Prothrombin Time 14.7 sec (9.3-11.8) Prothrombin Time INR 1.42 (0.9-1.15) Activated Partial Thromboplast Time 59.8 SEC (24.5-34.5) Magnesium Level 2.2 mg/dL (1.6-2.6) Test 09/04/24 05:14 09/04/24 01:58 09/03/24 14:07 Total Bilirubin 1.4 mg/dL (0.2-1.0) Aspartate Amino Transferase (AST) 33 U/L (13-40) Alanine Aminotransferase (ALT) 37 U/L (7-40) Alkaline Phosphatase 60 U/L (46-116) Troponin I High Sensitivity 2064 ng/L (</=54) Total Protein 6.3 g/dL (5.7-8.2) Albumin 4.1 g/dL (3.2-4.8) Urine Color Yellow (Yellow) Urine Clarity Clear (Clear) Urine pH 5.5 (5.0-9.0) Urine Specific [place] 1.020 (1.001-1.035) Urine Protein 1+ (Negative) Urine Ketones Negative (Negative) Urine Blood Negative /uL (Negative) Urine Nitrite Negative (Negative) Urine Bilirubin Negative (Negative) Urine Urobilinogen Normal mg/dL (Negative) Urine Leukocyte Esterase Negative /uL (Negative) Urine RBC 1 /hpf (0 - 3) Urine WBC 1 /hpf (0 - 3) Urine Squamous Epithelial Cells Few /hpf (<5) Urine Bacteria Few /hpf (None Seen) Urine Hyaline Casts Mod /lpf (0 - 2) Urine Mucus Few (None Seen) Urine Glucose Normal mg/dL (Normal) Urine Opiates Screen Neg (NEGATIVE) Urine Fentanyl Screen Neg (NEGATIVE) Urine Barbiturates Screen Neg (NEGATIVE) Urine Phencyclidine Screen Neg (NEGATIVE) Urine Amphetamines Screen Neg (NEGATIVE) Urine Benzodiazepines Screen Pos (NEGATIVE) Urine Cocaine Screen Neg (NEGATIVE) Urine Cannabinoids Screen Neg (NEGATIVE) Hemoglobin A1c 5.4 % A1C (<5.7) Triglycerides Level 92 mg/dL (< 150) Cholesterol Level 112 mg/dL (< 200) LDL Cholesterol 66 mg/dL (< 100) HDL Cholesterol 34 mg/dL (40-59) Thyroid Stimulating Hormone (TSH) 2.39 uIU/mL (0.55-4.78) Other Laboratory Tests 09/07/24 04:29 09/05/24 05:00 Brief Hx & Hospital Course: History of Present Illness This 39-year-old male with past medical history of schizophrenia, prediabetes, and obesity presents in the ED with a chief complaint of shortness of breath x1 day. The patient reports progressive shortness of breath associated with cough, chest pain that is sharp in nature, left arm numbness with tingling sensation started yesterday. Patient states that he is currently taking antibiotic for pneumonia from his recent ED visit. The patient denies history of [place] or CHF. Reports history of ASD. Denies tobacco, illicit drug, or ETOH abuse. Course of hospitalization: Patient was placed on heparin drip while in the emergency room. Cardiology consultation was obtained. Patient had downtrending troponins. The patient denies having any chest pain, with his shortness of breath resolving with IV diuresis, as well as inflammation of goal-directed medical therapy. Patient was found to have an ejection fraction of approximately 10% with four chamber enlargement. Discussion was made with Cardiology, who recommends the patient be transferred to higher level care for evaluation of a heart and lung transplant. Patient did not undergo coronary angiogram at this facility, with heparinization stopped. Patient was placed on Lovenox prophylactic dose. Patient also was weaned off of Lasix drip, switched to 40 mg IV twice a day. Patient also had improvement with heart rate with beta-marifer therapy as well as coming more euvolemic. Patient reports having decreased anasarca as well as swelling to lower extremities. Patient has been accepted to [facility] for evaluation of heart and lung transplant. Patient will continue current treatment and remain telemetry status at this time. Discussion was made with the patient who is agreeable to being transferred. All questions answered. Physical exam General: Alert and Oriented x3. No acute distress. Well-nourished. Obesity Eyes: EOMI. Anicteric. HENT: Moist mucous membranes. Lungs: Clear to auscultation bilaterally. No accessory muscle use. Cardiovascular: Regular rate and rhythm. No murmur. No JVD. Abdomen: Soft, non-tender and non-distended. No palpable masses. Extremities: No edema. Non-tender. Skin: No rashes or lesions. Warm. Neurologic: No focal neurological deficits. CN II-XII grossly intact, but not individually tested. Psychiatric: Cooperative. Appropriate mood and affect. Total time spent with patient discussing and formulating plan of care: 35 minutes. This medical document was created using an electronic medical record system with [employer] dictation system. Although this document has been carefully reviewed, there may still be some phonetic and typographical errors. These areas are purely typographical due to imperfections of the software programs, and do not reflect any compromise in the patient's medical care. Consults/Reason for consult Cardiology: NSTEMI, decompensated systolic and diastolic heart failure Condition at Discharge: Higher Level of Care Final Diagnosis/Problems List Acute decompensated systolic and diastolic heart failure Secondary Diagnosis: -cardiomegaly -history of atrial septal defect, ruled out given negative bubble study -schizophrenia -NSTEMI, type 2 -obesity -acute kidney injury, vasomotor nephropathy Discharge Disposition: Acute Care Facility Discharge Instruct/Medications Diet: Cardiac 2g Na,low cholest (2 gm sodium, low cholesterol) Diet comment: Fluid restriction to 1400 mL per day Activity: No Restrictions, As Tolerated Medications: Refer to medication reconciliation form 36 Discharge Statement: "Patient was advised to return to the ER or call 911 if any headaches, dizziness, shortness of breath, chest pain, abdominal pain, bleeding, fevers, or worsening of medical condition. Patient was counseled about treatment plan, medications, possible side effects, patientverbalized understanding. All questions were answered to the best of my ability. This discharge took greater then 30 minutes in planning, reviewing documentation, counseling the patient, and discussing with other team members." ASSESSMENT ASSESSMENT Assessment Date of Service: Sep 07, 2024 Billing Provider: JARAD HATFIELD NP Common Visit Codes: 20041-XQX/OBS DISCH DAY >30min JARAD HATFIELD NP Sep 07, 2024 10:13
[2024-09-07] MEDS: POTASSIUM CHL 20 Meq TABLET PO SCH (11:22)
[2024-09-07 11:38] LABS: Hepatitis A Total Antibody Positive (Negative); Hepatitis B Surface Antibody Positive (Negative); Hepatitis B Surface Antigen Negative (Negative); Hepatitis C Antibody Negative (Negative)
[2024-09-07 13:07] LABS: Anti-Centromere B Antibody <0.2 AI (0.0-0.9); Anti-Jo-1 Antibody <0.2 AI (0.0-0.9); Anti-dsDNA Antibody 1 IU/mL (0-9); Antichromatin Antibody <0.2 AI (0.0-0.9); Antiscleroderma-70 Antibody <0.2 AI (0.0-0.9); RNP Antibody <0.2 AI (0.0-0.9); Sjogren's Anti-SS-A Antibody <0.2 AI (0.0-0.9); Sjogren's Anti-SS-B Antibody <0.2 AI (0.0-0.9); Smith Antibody <0.2 AI (0.0-0.9)
--- NOTE | 2024-09-07 14:46 | DVHPN2 ---
Consult Progress Note Date Seen: Sep 07, 2024 Subjective Review of Systems: CVS:Normal, RESPIRATORY:Normal, NEURO:Abnormal Other Systems: C/o episode of dizziness last night Objective vital signs Vital Sign Date Time Temp Pulse Resp B/P (MAP) Pulse Ox O2 Delivery O2 Flow Rate FiO2 09/07/24 14:00 101 16 90/51 (64) 98 09/07/24 12:00 98.1 98.1 09/07/24 08:00 Nasal Cannula* 3 32 Total Intake and Output 09/06/24 09/06/24 09/07/24 15:00 23:00 07:00 Intake Total 328 ml 1048 ml 257 ml Output Total 3000 ml 1450 ml Balance 328 ml -1952 ml -1193 ml medications Current Medications Medications Dose Ordered Sig/Albert Route Start Time Stop Time Status Last Admin Dose Admin Acetaminophen/ Hydrocodone Bitart 1 tab Q4HP PRN PO 09/03/24 17:00 Ondansetron HCl 4 mg Q4HP PRN IV 09/03/24 17:00 09/05/24 09:18 4 MG Acetaminophen 650 mg Q6HP PRN PO 09/03/24 17:00 Morphine Sulfate 2 mg Q4HPRN PRN IV 09/03/24 17:00 Nitroglycerin 0.4 mg Q5MINP PRN SL 09/03/24 17:00 Morphine Sulfate 2 mg Q30M PRN IV 09/03/24 17:00 Aspirin 81 mg DAILY PO 09/04/24 10:00 09/07/24 10:10 81 MG Empaglifozin 10 mg DAILY PO 09/05/24 10:00 09/06/24 09:28 10 MG Enoxaparin Sodium 40 mg DAILY SC 09/06/24 10:00 09/07/24 10:10 40 MG Metoprolol Succinate 25 mg DAILY PO 09/06/24 10:00 09/06/24 09:30 25 MG Spironolactone 12.5 mg DAILY PO 09/06/24 10:00 Sacubitril/ Valsartan 0.5 tab BID PO 09/06/24 10:00 09/06/24 21:55 0.5 TAB Furosemide 40 mg BIDD IV 09/07/24 18:00 Ergocalciferol 50,000 unit Q7D PO 09/07/24 10:00 09/07/24 10:00 50,000 UNIT Magnesium Oxide 400 mg DAILY PO 09/08/24 10:00 Potassium Chloride 20 meq DAILY PO 09/07/24 10:15 09/07/24 11:22 20 MEQ Examination: LUNGS:Normal, CVS:Normal (NSR), NEURO:Normal laboratory and microbiology Laboratory Tests 09/07/24 04:29 09/05/24 05:00 Test 09/07/24 04:29 Range/Units Serum Glucose 103 74-106 mg/dL Problem List/Assessment/Plan Problem List/Assessment/Plan NSTEMI likely type II Acute on chronic decompensated HFrEF, NYHA class IV 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 Aragon) Transthoracic echocardiogram revealed an EF 10-15% with severely dilated right and left atria and RVSP 45 mmHg. The patient with biventricular heart failure is likely at end-stage heart failure and may be a candidate for heart transplant. Continue GDMT for CHF with parameters. Continue preload reduction as tolerated. Strict intake and output, daily weights, and maintain fluid restriction. Patient would benefit from right and left heart catheterization. This facility does not have the capacity to do accurate measurements of cardiac output and cardiac resistance. Given this information the patient will be transferred to higher level of care for further workup and determination of possible heart transplant. We will continue to follow closely. Thank you for allowing us to care for this patient. Please call with any questions or concerns. Critical care time spent: 45 minutes.This medical document was created using an electronic medical record system with voice recognition software and computerized dictation system. Although this document has been carefully reviewed, there might still be some phonetic and typographical errors. Occasional wrong-word or ``sound-alike substitutions may have occurred due to the inherent limitations of voice recognition software. These areas are purely typographical due to imperfections of the software programs and do not reflect any compromise in the patient's medical care. Please read the chart carefully and recognize, using context, where these substitutions have occurred. Plan discussed with: Patient, Other Dietary Evaluation Review Comments: Follow the current dietary regimen. Monitor PO intake to meet 75% of his needs. Expected Outcomes/Goals: Gradual weight loss Date of Service: Sep 07, 2024 Billing Provider: LACEY ARAGON MD Cardiology Common Codes: [id number] HOSP CARE([facility] Sep 07, 2024 14:46
[2024-09-07] MEDS: FUROSEMIDE 20 MG/2 ML VIAL IV SCH (17:36)
[2024-09-07] MEDS ORDERED: FUROSEMIDE 40 MG/4 ML VIAL IV SCH (18:00)
[2024-09-07] MEDS: SACUBITRIL-VALSARTAN 24mg/26mg TAB PO SCH (22:00)
[2024-09-08] MEDS ORDERED: SPIRONOLACTONE 25 MG TAB PO SCH (10:00)
[2024-09-08] MEDS ORDERED: METOPROLOL SUCCINATE XL 50 MG TAB PO SCH (10:00)
[2024-09-08] MEDS ORDERED: MAGNESIUM OXIDE 400 MG TAB PO SCH (10:00)
[2024-09-11 13:07] LABS: Vitamin B6 23.4 ug/L (3.4-65.2)
== END 2024-09-07 23:40 | disposition short-term general hospital (02) | DRG 194 ==
LOC: ER 11:55 → TELE 16:53 → DOU IN ICU 09-04 02:53
PROVIDERS: ADMIT Registered Nurse; ATTEND Nurse Practitioner Acute Care
DX: I11.0 Hypertensive heart disease with heart failure (principal); N17.0 Acute kidney failure with tubular necrosis; I21.A1 Myocardial infarction type 2; I47.20 Ventricular tachycardia, unspecified; I42.0 Dilated cardiomyopathy; F20.9 Schizophrenia, unspecified; R73.03 Prediabetes; E66.813 Obesity, class 3; I07.1 Rheumatic tricuspid insufficiency; I37.1 Nonrheumatic pulmonary valve insufficiency; I50.43 Acute on chronic combined systolic (congestive) and diastolic (congestive) heart failure; Z90.49 Acquired absence of other specified parts of digestive tract; Z68.36 Body mass index [BMI] 36.0-36.9, adult; Z82.49 Family history of ischemic heart disease and other diseases of the circulatory system; Z79.899 Other long term (current) drug therapy
CPT/HCPCS: 36415; 71045; 80048; 80053; 80061; 80307; 81001; 82306; 82607; 83036; 83516; 83735; 83880; 84132; 84207; 84443; 84484; 85025; 85610; 85730; 86160; 86225; 86235; 86431; 86703; 86704; 86706; 86708; 86803; 87081; 87340; 93005; 93306; 99291; G0378; J2405; J7060

== ENCOUNTER 2025-01-30 14:19 | Inpatient (IN) | payer OTHER ==
[~2025-01-30] VITALS: Ht 165.1 cm; Wt 88.0 kg
[~2025-01-30 14:19] MED LIST changes: +APIX5TAB PO; -AUG875T PO; -AZIT-43 PO; -DIVA-139 PO; -LEVO500T31 PO; -METR500T PO; -PSEU120T18 PO
--- NOTE | 2025-01-30 15:14 | ED.PDOC ---
SOB-HPI HPI Comments todd: HPI: 39 y/o M, with PMHX of schizophrenia, heart failure, lung failure, and developmental delays presents to the ED for CC of shortness of breath. Patient states, he has been experiencing shortness of breath with associated chest pain, productive cough, and fever since last night (01/29/25). Patient endorses, previously being sick with flu-like symptoms x4 days ago. Patient relays multiple complaints and various new onset of symptoms starting today (01/30/25). No other symptoms or modifying factors obtainable at this time. Past Medical History: SCHIZOPHRENIA, HEART FAILURE, LUNG FAILURE, DEVELOPMENTAL DELAY Past Surgical History: SKIN GRAFT LEFT LEG REVIEW OF SYSTEMS: CONSTITUTIONAL: Denies acute: fever, diaphoresis, chills, HEAD: Denies acute: headache, photophobia Eyes: Denies acute: Double vision, vision loss, eye pain, eye discharge. EARS: Denies acute: tinnitus, hearing loss, ear discharge, ear pain, THROAT: Denies acute: sore throat, swelling, difficulty swallowing , pain with swallowing, change in voice. NECK: Denies acute: neck pain, neck swelling, stiff neck. HEART: Denies acute : palpitations, LUNGS: Denies acute: , wheezing, , hemoptysis ABDOMEN: Denies acute: diarrhea, melena , hematemesis, hematochezia SKIN: Denies acute: rash, redness, lesions, itchiness. EXTREMITIES: Denies acute: calf pain, numbness, tingling, weakness, denies pain in extremity. Denies acute: Low back pain. Neuro: Denies acute: focal neurological deficit, motor or sensory focal neurological deficit, tremors, seizure like activity, confusion, , change in mental status, loss of bowel or bladder function, cauda equina like symptoms. : Denies acute: dysuria, hematuria, flank pain, increase in urinary frequency. PSYCH: Denies acute: hallucination, suicidal ideation, homicidal ideation. PHYSICAL EXAM: General: --mild------acute distress, awake and alert. Head: normocephalic, atraumatic. Neck: supple, trachea is midline, no swelling. Throat: Normal phonation. Eyes:, no erythema, no purulent discharge, no proptosis, no icterus. Heart: regular tachycardia, no significant murmur appreciated. Lungs: no apparent respiratory distress, Able to speak in full sentences. No wheezing, no rhonchi, no crackles. No stridors Clear to auscultation bilaterally. Abdomen: Minimal epigastric tender to palpation, non distended, soft, no guarding, no rebound, + bowel sounds. Neuro: Awake, Alert, oriented to name, self, situation, follows commands GCS=15. Speech is normal. Skin: no petechia, no purpura, no cyanosis, non-pale, not jaundice. Lower extremities: --no - Pitting edema no deformity, no focal swelling, no calf TTP. Makes eye contact. moves all four extremities. Face: no apparent facial droop. Ambulating in the ED independently. ED COURSE: Chief Complaint: Shortness of Breath Time Seen by MD: 14:50 Primary Care Provider: ZION Reviewed notes: Nurses Notes, Medications, Allergies Information Source: Patient Mode of Arrival: Ambulatory Was a procedure done? Was a procedure done?: No Differential Dx Differential Diagnosis: Anxiety, Bronchitis, Pharyngitis, URI, Other (DDx include ACS, unstable angina, anxiety, PE, pneumothroax, neoplasm, cardiac ischemia, COPD, asthma, CHF, pleural effusion, tobacco abuse, pneumonia, hypoxia, hypercapnia, anemia., infection/sepsis., pulmonary edema. Asthma, Cardiac tamponade, infection.) X-Ray, Labs, Meds, VS Vital Signs Date Time Temp Pulse Resp B/P (MAP) Pulse Ox O2 Delivery O2 Flow Rate FiO2 01/30/25 18:14 100 18 95 Room Air 01/30/25 18:13 98.4 100 18 108/72 (84) 95 98.4 01/30/25 17:55 97.3 102 15 92/69 (77) 98 97.3 01/30/25 17:38 92/73 01/30/25 17:37 111 17 100 Room Air 01/30/25 17:37 98.8 111 17 92/73 (79) 100 98.8 01/30/25 14:51 111 01/30/25 14:50 20 97 Room Air* 0 21 01/30/25 14:42 98.0 116 20 104/71 (82) 97 98.0 Lab Test 01/30/25 18:36 01/30/25 18:11 01/30/25 16:40 01/30/25 15:53 Range/Units Lactic Acid Level 1.5 0.4-2.0 mmol/L Troponin I High Sensitivity 27 22 </=54 ng/L Urine Color Yellow Yellow Urine Clarity Clear Clear Urine pH 5.5 5.0-9.0 Urine Specific [place] 1.010 1.001-1.035 Urine Protein Negative Negative Urine Ketones Negative Negative Urine Blood Negative Negative /uL Urine Nitrite Negative Negative Urine Bilirubin Negative Negative Urine Urobilinogen Normal Negative mg/dL Urine Leukocyte Esterase Negative Negative /uL Urine RBC <1 0 - 3 /hpf Urine Microscopic WBC 1 0-3 /HPF Urine Squamous Epithelial Cells Few <5 /hpf Urine Bacteria None seen None Seen /hpf Urine Mucus Few None Seen Urine Glucose 4+ H Normal mg/dL Urine Opiates Screen Neg NEGATIVE Urine Fentanyl Screen Neg NEGATIVE Urine Barbiturates Screen Neg NEGATIVE Urine Phencyclidine Screen Neg NEGATIVE Urine Amphetamines Screen Neg NEGATIVE Urine Benzodiazepines Screen Neg NEGATIVE Urine Cocaine Screen Neg NEGATIVE Urine Cannabinoids Screen Neg NEGATIVE Influenza Type A Antigen Negative Negative Influenza Type B Antigen Negative Negative SARS-CoV-2 Antigen (Rapid) Negative NEGATIVE Test 01/30/25 15:49 Range/Units White Blood Count 8.9 4.4-10.8 10^3/uL Red Blood Count 4.88 4.5-5.90 10^6/uL Hemoglobin 15.6 13.5-17.5 g/dL Hematocrit 47.9 41.0-53.0 % Mean Corpuscular Volume 98.3 80.0-100.0 fL Mean Corpuscular Hemoglobin 31.9 28.0-32.0 pg Mean Corpuscular Hemoglobin Concent 32.5 32.0-36.0 g/dL Red Cell Distribution Width 16.0 H 11.8-14.3 % Platelet Count 207 140-450 10^3/uL Mean Platelet Volume 10.5 6.9-10.8 fL Neutrophils (%) (Auto) 68.1 37.0-80.0 % Lymphocytes (%) (Auto) 22.6 10.0-50.0 % Monocytes (%) (Auto) 7.3 0.0-12.0 % Eosinophils (%) (Auto) 1.3 0.0-7.0 % Basophils (%) (Auto) 0.7 0.0-2.0 % Neutrophils # (Auto) 6.1 1.6-8.6 10 ^3/uL Lymphocytes # (Auto) 2.0 0.4-5.4 10 ^3/uL Monocytes # (Auto) 0.6 0-1.3 10 ^3/uL Eosinophils # (Auto) 0.1 0-0.8 10 ^3/uL Basophils # (Auto) 0.1 0-0.2 10 ^3/uL Nucleated Red Blood Cells 0.2 % Sodium Level 137 136-145 mmol/L Potassium Level 4.6 3.5-5.1 mmol/L Chloride Level 102 98-107 mmol/L Carbon Dioxide Level 25 20-31 mmol/L Anion Gap 10 5-15 Blood Urea Nitrogen 19 9-23 mg/dL Creatinine 1.28 0.700-1.30 mg/dL Glomerular Filtration Rate Calc 74 >90 mL/min BUN/Creatinine Ratio 14.8 10.0-20.0 Serum Glucose 123 H 74-106 mg/dL Lactic Acid Level 2.1 *H 0.4-2.0 mmol/L Calcium Level 9.8 8.7-10.4 mg/dL Magnesium Level 2.5 1.6-2.6 mg/dL Total Bilirubin 3.3 H 0.2-1.0 mg/dL Aspartate Amino Transferase (AST) 33 13-40 U/L Alanine Aminotransferase (ALT) 34 7-40 U/L Alkaline Phosphatase 100 46-116 U/L Troponin I High Sensitivity 21 </=54 ng/L B-Type Natriuretic Peptide 1672.92 0-100 pg/mL Total Protein 6.9 5.7-8.2 g/dL Albumin 4.4 3.2-4.8 g/dL Lipase 48 12-53 U/L [address] [address] Ph: [phone] DIAGNOSTIC IMAGING Diagnostic Imaging Report : [id number] Signed PATIENT: DOTTIE KENNEDY ACCT: [id number] UNIT: [id number] : 1985 LOC: ER ROOM / BED: / AGE / SEX: 39 / M ADM STATUS: REG ER SERVICE 1450 ORDERING PHYSICIAN: STEVEN RIVERA DO PROCEDURE(s): CXRP - CHEST PORTABLE REASON: cough ORDER NUMBER(s): [id number], ACCESSION NUMBER(s): [id number] INDICATION: cough TECHNIQUE: Frontal view of the chest. COMPARISON: XY CHEST XRAY 1 VIEW on DOS: 09/06/24, XY CHEST PORTABLE on DOS: 09/05/24, XY CHEST PORTABLE on DOS: 09/04/24, XY CHEST PORTABLE on DOS: 09/03/24 FINDINGS: . The heart and mediastinal contours are grossly unremarkable. There is no evidence of pleural disease. The lungs are clear. The bony structures of the chest are intact without fracture. IMPRESSION: 1. No evidence of acute disease. ATED BY: CHOLO JIMENEZ MD DICTATED DATE/TIME: 01/30/25 152 SIGNED BY: CHOLO JIMENEZ MD SIGNED DATE/TIME: 01/30/25 152 CC: [place] [address] Ph: [phone] DIAGNOSTIC IMAGING Diagnostic Imaging Report : [id number] Signed PATIENT: DOTTIE KENNEDY ACCT: [id number] UNIT: [id number] : 1985 LOC: ER ROOM / BED: / AGE / SEX: 39 / M ADM STATUS: REG ER SERVICE 1450 ORDERING PHYSICIAN: STEVEN RIVERA DO PROCEDURE(s): ABPL - CT AB PEL WO CON-NO ORAL OR IV REASON: n/v ORDER NUMBER(s): [id number], ACCESSION NUMBER(s): [id number] CT CT AB PEL WO CON-NO ORAL OR IV INDICATION: n/v EXAM DATE: 01/30/2025 03:01 PM COMPARISON: None RADIATION DOSE: CTDIvol: 17 mGy, DLP: 947 mGy*cm PROCEDURE: Helical CT images were obtained of the abdomen and pelvis without IV contrast Sagittal and coronal reconstructions are provided. ORAL CONTRAST: None. ADDITIONAL IMAGES / REFORMATS: None All CT scans at this medical facility are performed using dose modulation techniques as appropriate to a performed exam including the following: Automated exposure control was utilized; adjustment of the MA and/or KV according to patient size; and use of iterative reconstruction technique. FINDINGS: LUNG BASE: Small right pleural effusion. LIVER: Normal. GALLBLADDER AND BILIARY TREE: Cholecystectomy clips are noted. No intra- or extrahepatic biliary ductal dilation. PANCREAS: Normal. SPLEEN: Normal. BOWEL: Normal. Normal appendix. ADRENALS: Normal. KIDNEYS AND URETER: Normal. BLADDER: Normal. REPRODUCTIVE ORGANS: Normal. LYMPH NODES:No lymphadenopathy. PERITONEUM: Mild volume ascites. VESSELS: Scattered atherosclerotic calcifications are noted. RETROPERITONEUM: Normal. ABDOMINAL WALL: Normal. BONES: Scattered osseous degenerative changes are noted. IMPRESSION: Mild volume ascites. Small right pleural effusion. ATED BY: WILLIAM ZAPIEN MD DICTATED DATE/TIME: 01/30/251538 SIGNED BY: WILLIAM ZAPIEN MD SIGNED DATE/TIME: 01/30/251538 CC: Time of 1ST Reevaluation: 15:20 Reevaluation 1ST: Unchanged Patient Education/Counseling: Diagnosis, Treatment Family Education/Counseling: No Family Present Comments Patient presented with the above HPI.--shortness of breath----workup was initiated. patient was found with the above mentioned diagnosis. the following medications were ordered: please refer to order lists of meds and tests obtained by myself Dr. Rivera. Patient ED course and VS have been stabilized. Patient has been reassessed in the ED and remained in a stable condition. Pertinent incidental findings were discussed with the patient and/or family. Patient/family voices understanding and is agreeable with plan. Patient has been observed in the ED adequate length of time to insure improvement/stability. Escalation of care considered: Consideration of escalation to observation or admission Renetta Mckeon Patient was ADMITTED to the medicine team for further evaluation and treatment of their presentation. All the reports of any imaging studies that were ordered by myself were reviewed by myself. Departure 1 Departure Time of Disposition: 16:41 Impression: Primary Impression: CHF (congestive heart failure) Additional Impressions: Pleural effusion Ascites Disposition: ADMITTED INPATIENT Admit to: [facility] Condition: Guarded Additional Instructions: [place] [address] Ph: [phone] DIAGNOSTIC IMAGING Diagnostic Imaging Report : [id number] Signed PATIENT: DOTTIE KENNEDY ACCT: [id number] UNIT: [id number] : 1985 LOC: ER ROOM / BED: / AGE / SEX: 39 / M ADM STATUS: REG ER SERVICE 1450 ORDERING PHYSICIAN: STEVEN RIVERA DO PROCEDURE(s): CXRP - CHEST PORTABLE REASON: cough ORDER NUMBER(s): [id number], ACCESSION NUMBER(s): [id number] INDICATION: cough TECHNIQUE: Frontal view of the chest. COMPARISON: XY CHEST XRAY 1 VIEW on DOS: 09/06/24, XY CHEST PORTABLE on DOS: 09/05/24, XY CHEST PORTABLE on DOS: 09/04/24, XY CHEST PORTABLE on DOS: 09/03/24 FINDINGS: . The heart and mediastinal contours are grossly unremarkable. There is no evidence of pleural disease. The lungs are clear. The bony structures of the chest are intact without fracture. IMPRESSION: 1. No evidence of acute disease. ATED BY: CHOLO JIMENEZ MD DICTATED DATE/TIME: 01/30/25 152 SIGNED BY: CHOLO JIMENEZ MD SIGNED DATE/TIME: 01/30/[address] [place] [address] Ph: [phone] DIAGNOSTIC IMAGING Diagnostic Imaging Report : [id number] Signed PATIENT: DOTTIE KENNEDY ACCT: [id number] UNIT: [id number] : 1985 LOC: ER ROOM / BED: / AGE / SEX: 39 / M ADM STATUS: REG ER SERVICE 1450 ORDERING PHYSICIAN: STEVEN RIVERA DO PROCEDURE(s): ABPL - CT AB PEL WO CON-NO ORAL OR IV REASON: n/v ORDER NUMBER(s): [id number], ACCESSION NUMBER(s): [id number] CT CT AB PEL WO CON-NO ORAL OR IV INDICATION: n/v EXAM DATE: 01/30/2025 03:01 PM COMPARISON: None RADIATION DOSE: CTDIvol: 17 mGy, DLP: 947 mGy*cm PROCEDURE: Helical CT images were obtained of the abdomen and pelvis without IV contrast Sagittal and coronal reconstructions are provided. ORAL CONTRAST: None. ADDITIONAL IMAGES / REFORMATS: None All CT scans at this medical facility are performed using dose modulation techniques as appropriate to a performed exam including the following: Automated exposure control was utilized; adjustment of the MA and/or KV according to patient size; and use of iterative reconstruction technique. FINDINGS: LUNG BASE: Small right pleural effusion. LIVER: Normal. GALLBLADDER AND BILIARY TREE: Cholecystectomy clips are noted. No intra- or extrahepatic biliary ductal dilation. PANCREAS: Normal. SPLEEN: Normal. BOWEL: Normal. Normal appendix. ADRENALS: Normal. KIDNEYS AND URETER: Normal. BLADDER: Normal. REPRODUCTIVE ORGANS: Normal. LYMPH NODES:No lymphadenopathy. PERITONEUM: Mild volume ascites. VESSELS: Scattered atherosclerotic calcifications are noted. RETROPERITONEUM: Normal. ABDOMINAL WALL: Normal. BONES: Scattered osseous degenerative changes are noted. IMPRESSION: Mild volume ascites. Small right pleural effusion. ATED BY: WILLIAM ZAPIEN MD DICTATED DATE/TIME: 01/30/25 1539 SIGNED BY: WILLIAM ZAPIEN MD SIGNED DATE/TIME: 01/30/25 1539 CC: CC: e-Prescriptions Levofloxacin Hemihydrate (LEVOFLOXACIN) 500 Mg Tab 1 TAB PO DAILY for 7 Days, #7 TAB Prov: INNA COREA MD 02/02/25 Discharged With: Self Critical Care Note Critical Care Time?: Yes (35 min-critical care time only) Heart Score Heart Score: Heart Score Response (Comments) Value History N/A 0 EKG N/A 0 Age N/A 0 Risk Factors N/A 0 Troponin N/A 0 Total 0 I personally scribed for STEVEN RIVERA DO ([email or web address]) on 01/30/25 at 15:14. E lectronically submitted by Syl Hill ([email or web address]). I personally scribed for STEVEN RIVERA DO ([email or web address]) on 01/30/25 at 15:16. Electr onically submitted by Syl Hill ([email or web address]). I personally scribed for STEVEN RIVERA DO ([email or web address]) on 01/30/25 at 15:35. Electronically submitted by Syl Hill ([email or web address]). I personally scribed for STEVEN RIVERA DO ([email or web address] on 01/30/25 at 15:42. Electronically submitted by Syl Hill ([email or web address]). I personally scribed for STEVEN RIVERA DO ([email or web address]) on 01/30/25 at 19:45. Electronically submitted by Syl Hill ([email or web address]). I personally scribed for STEVEN RIVERA DO ([email or web address]) on 01/30/25 at 19:46. Electronically submitted by Syl Hill ([email or web address]). STEVEN RIVERA DO Jan 30, 2025 15:14
--- NOTE | 2025-01-30 15:24 | DVH ---
INDICATION: cough TECHNIQUE: Frontal view of the chest. COMPARISON: XY CHEST XRAY 1 VIEW on DOS: 09/06/24, XY CHEST PORTABLE on DOS: 09/05/24, XY CHEST PORTABL E on DOS: 09/04/24, XY CHEST PORTABLE on DOS: 09/03/24 FINDINGS: . The heart and mediastinal contours are grossly unremarkable. There is no evidence of pleural disea se. The lungs are clear. The bony structures of the chest are intact without fracture. IMPRESSION: 1. No evidence of acute disease.
--- NOTE | 2025-01-30 15:34 | DVH ---
CT CT AB PEL WO CON-NO ORAL OR IV INDICATION: n/v EXAM DATE: 01/30/2025 03:01 PM COMPARISON: None RADIATION DOSE: CTDIvol: 17 mGy, DLP: 947 mGy*cm PROCEDURE: Helical CT images were obtained of the abdomen and pelvis without IV contrast Sagittal and coronal reconstructions are provided. ORAL CONTRAST: None. ADDITIONAL IMAGES / REFORMATS: None All C T scans at this medical facility are performed using dose modulation techniques as appropriate to a p erformed exam including the following: Automated exposure control was utilized; adjustment of the MA and/or KV according to patient size; and use of iterative reconstruction technique. FINDINGS: LUNG BASE: Small right pleural effusion. LIVER: Normal. GALLBLADDER AND BILIARY TREE: Cholecystectomy clips are noted. No intra- or extrahepatic biliary duct al dilation. PANCREAS: Normal. SPLEEN: Normal. BOWEL: Normal. Normal appendix. ADRENALS: Normal. KIDNEYS AND URETER: Normal. BLADDER: Normal. REPRODUCTIVE ORGANS: Normal. LYMPH NODES:No lymphadenopathy. PERITONEUM: Mild volume ascites. VESSELS: Scattered atherosclerotic calcifications are noted. RETROPERITONEUM: Normal. ABDOMINAL WALL: Normal. BONES: Scattered osseous degenerative changes are noted. IMPRESSION: Mild volume ascites. Small right pleural effusion.
[2025-01-30 16:08] LABS: Basophils # (auto) 0.1 10 ^3/uL (0-0.2); Basophils % (auto) 0.7 % (0.0-2.0); Eosinophils # (auto) 0.1 10 ^3/uL (0-0.8); Eosinophils % (auto) 1.3 % (0.0-7.0); Hematocrit 47.9 % (41.0-53.0); Hemoglobin 15.6 g/dL (13.5-17.5); Lymphocytes % (auto) 22.6 % (10.0-50.0); Mean Corpuscular Hemoglobin 31.9 pg (28.0-32.0); Mean Corpuscular Hgb Conc. 32.5 g/dL (32.0-36.0); Mean Corpuscular Volume 98.3 fL (80.0-100.0); Monocytes # (auto) 0.6 10 ^3/uL (0-1.3); Monocytes % (auto) 7.3 % (0.0-12.0); Neutrophils # (auto) 6.1 10 ^3/uL (1.6-8.6); Neutrophils % (auto) 68.1 % (37.0-80.0); Nucleated Red Blood Cells % 0.2 %; Platelet Count (auto) 207 10^3/uL (140-450); Red Blood Cells 4.88 10^6/uL (4.5-5.90); White Blood Cell 8.9 10^3/uL (4.4-10.8)
[2025-01-30 16:24] LABS: Alanine Aminotransferase 34 U/L (7-40); Albumin 4.4 g/dL (3.2-4.8); Alkaline Phosphatase 100 U/L (46-116); Anion Gap 10 (5-15); Aspartate Aminotransferase 33 U/L (13-40); BUN/Creatinine Ratio 14.8 (10.0-20.0); Blood Urea Nitrogen 19 mg/dL (9-23); Calcium 9.8 mg/dL (8.7-10.4); Carbon Dioxide 25 mmol/L (20-31); Chloride 102 mmol/L (98-107); Magnesium 2.5 mg/dL (1.6-2.6); Potassium 4.6 mmol/L (3.5-5.1); Sodium 137 mmol/L (136-145); Total Protein 6.9 g/dL (5.7-8.2)
[2025-01-30 16:34] LABS: Bilirubin, Total 3.3 mg/dL (0.2-1.0); Glucose 123 mg/dL (74-106)
[2025-01-30 16:38] LABS: Lactic Acid w/Reflex 2.1 mmol/L (0.4-2.0)
[2025-01-30 16:49] LABS: Lipase 48 U/L (12-53)
[2025-01-30 17:18] LABS: COVID19 ANTIGEN SOFIA FIA NEGATIVE (NEGATIVE); Rapid Influenza A Negative (Negative); Rapid Influenza B Negative (Negative)
[2025-01-30] MEDS: ONDANSETRON HCL 4 MG/2 ML VIAL IV ONE (17:38)
[2025-01-30] MEDS: FUROSEMIDE 40 MG/4 ML VIAL IV ONE (17:38)
[2025-01-30] MEDS: cefTRIAXone 1GM/50ML D5W 50 ML IV ONE (17:49)
[2025-01-30 18:30] LABS: Urine Bacteria None Seen /hpf (None Seen)
[2025-01-30 19:22] LABS: Amphetamine Screen, Urine Neg (NEGATIVE); Barbiturate Scree,Urine Neg (NEGATIVE); Benzodiazephine Screen, Urine Neg (NEGATIVE); Cannabinoid Screen, Urine Neg (NEGATIVE); Cocaine Screen, Urine Neg (NEGATIVE); Opiate Scree,Urine Neg (NEGATIVE); Phencyclidine Screen, Urine Neg (NEGATIVE)
[2025-01-30 19:37] LABS: Urine Blood Negative /uL (Negative); Urine Clarity Clear (Clear); Urine Color Yellow (Yellow); Urine Mucus FEW (None Seen); Urine Protein, UAD Negative (Negative); Urine Squamous Epithelial Cell FEW /hpf (<5); Urine Urobilinogen Normal (Negative); Urine WBC 1 /HPF (0-3); Urine pH 5.5 (5.0-9.0)
[2025-01-31] VITALS (14 sets, daily range): BP systolic 76–104; BP diastolic 51–72; PULSE 76–102; RESP 14–21; TEMP 97.5–98.6; O2SAT 94–100
[2025-01-31] MEDS ORDERED: NITROGLYCERIN 0.4 MG SL TAB SL PRN (02:45)
[2025-01-31] MEDS ORDERED: MORPHINE SULFATE INJ 2 MG/ml SYRG IV PRN (02:45)
[2025-01-31] MEDS ORDERED: DAPA1TAB4 PO (05:09)
[2025-01-31] MEDS ORDERED: METO25TA93 PO (05:09)
[2025-01-31] MEDS ORDERED: SPIR25TA8 PO (05:09)
[2025-01-31] MEDS ORDERED: BUME2TAB5 PO (05:09)
[2025-01-31] MEDS: SODIUM CHLOR 0.9% PF (SALINE LOCK) 10ML VIAL/SYR IV SCH (05:57)
[2025-01-31 06:24] LABS: INR 1.46 (0.9-1.15); Partial Thromboplastin Time 25.9 SEC (24.5-34.5); Prothrombin Time 14.9 sec (9.3-11.8)
[2025-01-31 06:27] LABS: Alanine Aminotransferase 35 U/L (7-40); Albumin 4.5 g/dL (3.2-4.8); Alkaline Phosphatase 95 U/L (46-116); Anion Gap 11 (5-15); Aspartate Aminotransferase 32 U/L (13-40); BUN/Creatinine Ratio 15.4 (10.0-20.0); Blood Urea Nitrogen 18 mg/dL (9-23); CRP High Sensitivity 0.55 mg/dL (<1.0); Calcium 9.8 mg/dL (8.7-10.4); Carbon Dioxide 23 mmol/L (20-31); Chloride 104 mmol/L (98-107); Glucose 100 mg/dL (74-106); Magnesium 2.4 mg/dL (1.6-2.6); Potassium 4.3 mmol/L (3.5-5.1); Sodium 138 mmol/L (136-145); Total Protein 7.2 g/dL (5.7-8.2)
[2025-01-31 06:37] LABS: Bilirubin, Total 3.2 mg/dL (0.2-1.0)
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
[2025-01-31 08:41] LABS: Basophils # (auto) 0.1 10 ^3/uL (0-0.2); Basophils % (auto) 0.8 % (0.0-2.0); Eosinophils # (auto) 0.1 10 ^3/uL (0-0.8); Eosinophils % (auto) 1.3 % (0.0-7.0); Hematocrit 44.5 % (41.0-53.0); Hemoglobin 15.1 g/dL (13.5-17.5); Lymphocytes # (auto) 1.7 10 ^3/uL (0.4-5.4); Lymphocytes % (auto) 19.5 % (10.0-50.0); Mean Corpuscular Hemoglobin 33.5 pg (28.0-32.0); Mean Corpuscular Volume 98.6 fL (80.0-100.0); Monocytes # (auto) 0.7 10 ^3/uL (0-1.3); Monocytes % (auto) 7.6 % (0.0-12.0); Neutrophils # (auto) 6.2 10 ^3/uL (1.6-8.6); Neutrophils % (auto) 70.8 % (37.0-80.0); Nucleated Red Blood Cells % 0.1 %; Platelet Count (auto) 163 10^3/uL (140-450); Red Blood Cells 4.52 10^6/uL (4.5-5.90); Red Cell Distribution Width 15.9 % (11.8-14.3); White Blood Cell 8.7 10^3/uL (4.4-10.8)
[2025-01-31 08:57] LABS: Erythrocyte Sedimentation Rate 1 mm/hr (0-20)
[2025-01-31] MEDS: APIXABAN 5 MG TAB PO SCH ×2 (09:28→21:36)
[2025-01-31] MEDS: FUROSEMIDE 20 MG/2 ML VIAL IV SCH (09:29)
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
[2025-01-31] MEDS ORDERED: FUROSEMIDE 20 MG/2 ML VIAL IV SCH (10:00)
[2025-01-31] MEDS: METOPROLOL SUCCINATE XL 50 MG TAB PO SCH (11:29)
[2025-01-31] MEDS: LOSARTAN POTASSIUM 25 MG TAB PO SCH (11:30)
[2025-01-31] MEDS: EMPAGLIFLOZIN 10 MG TAB PO SCH (11:31)
[2025-01-31] MEDS: PANTOPRAZOLE 40 MG/10 ML VIAL INJ IV SCH (11:46)
--- NOTE | 2025-01-31 12:35 | ECG ---
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
[2025-01-31] MEDS: cefTRIAXone 1GM/50ML D5W 50 ML IV ONE (13:39)
--- NOTE | 2025-01-31 16:14 | DVHSR ---
APPROVED REPORT EXAM: LIMITED Two-dimensional and M-mode echocardiogram. Blood Pressure: 101/68 mmHg INDICATION Heart Failure RISK FACTORS Height: 5'5", Weight: 187 DIMENSIONS LVDd8.2 (3.8-5.7cm)LA (2D) (1.9-4.0cm)Aortic Root (2.0-3.7cm) LVDs8.0 (2.5-4.0cm)LA (MM) (1.9-4.0cm)Aortic Cusp Exc (1.5-2.0cm) EF (%) 5.0 (55-70%)Rt. Atrium (1.9-4.0cm)Asc. Aorta cm Mitral Valve MitralMitral Stenosis E/A ratio0.02D MVAcm2 Other Information Quality : Technically LimitedRhythm : Technically limited study due to body habitus. Conclusion Limited echo to assess EF. Severe biventricular enlargement with severely reduced biventricular systolic function. LVEF 5%. Large, relatively immobile structure seen in RV apex, likely thrombus (1.3 x 3.1 cm). Trivial pericardial effusion.
--- NOTE | 2025-01-31 16:39 | DVHPNRES ---
Progress Note Date Seen: Jan 31, 2025 Resident Creating Document: JHEliseoJMARCIA ChanKALEN RESIDENT Medical Necessity Reason Pt with a Central, PICC or Fol: No Subjective Review of Systems Patient was a 39-year-old male with a past medical history as described below presented to the ER with a chief complaint of shortness of the breath for 3 days prior to admission. Patient reported that about 3-4 days started to have increased shortness of breath even while walking to the kitchen from his bedroom on the same level. He also reported cough with the associated white yellowish phlegm and also had episodes of vomiting with the associated left upper quadrant abdominal pain. Patient reports that he has also noticed his abdomen being distended. Patient has been following up with the utility technician at [facility] where he has been worked up for heart failure with reduced ejection fraction (EF 10-15%) and biventricular dilated cardiomyopathy with [id number] tricuspid and mitral valve regurgitation and is currently on spironolactone 12.5 mg q.d., dapagliflozin 10 mg q.d., metoprolol succinate 25 mg q.d. patient reports compliance with the medication. He denies any recent sick contacts, fever, chills. Patient in November developed pulmonary embolism and is currently on Eliquis. Patient was a significant family history with his father due to PA at the age of 44, many cousins under 40 with pacemakers. Past medical history: Heart failure with reduced ejection fraction, pulmonary embolism, schizophrenia, dilated cardiomyopathy Past surgical history: Cholecystectomy and hemorrhoidectomy Social history: Patient denies smoking, alcohol, drug use and lives with the family Home medications: spironolactone 12.5 mg q.d., dapagliflozin 10 mg q.d., metoprolol succinate 25 mg q.d., Eliquis 5 mg b.i.d. Review of systems Patient seen and examined at the bedside and reports no current nausea or vomiting. Has a minimal cough with mild whitish expectoration Denies shortness of breath while at rest but does report short of breath if he walks more than 40 ft. No chest pain, palpitations, headache or dizziness reported Objective vital signs Vital Sign Date Time Temp Pulse Resp B/P (MAP) Pulse Ox O2 Delivery O2 Flow Rate FiO2 01/31/25 12:30 97.6 102 20 96/72 (80) 95 97.6 4/2/25 11:00 Room Air* 0 21 Total Intake and Output 01/30/25 01/30/25 01/31/25 15:00 23:00 07:00 Intake Total 50 ml 100 ml Balance 50 ml 100 ml medications Current Medications Medications Dose Ordered Sig/Albert Route Start Time Stop Time Status Last Admin Dose Admin Nitroglycerin 0.4 mg Q5MINP PRN SL 01/31/25 02:45 Morphine Sulfate 2 mg Q30M PRN IV 01/31/25 02:45 Sodium Chloride 10 ml Q8HR IV 01/31/25 06:00 01/31/25 13:39 10 ML Empaglifozin 10 mg DAILY PO 01/31/25 10:00 01/31/25 11:31 10 MG Losartan Potassium 12.5 mg DAILY PO 01/31/25 10:00 01/31/25 11:30 12.5 MG Furosemide 40 mg DAILY IV 02/01/25 10:00 Ceftriaxone Sodium 50 ml @ 100 mls/hr DAILY@09 IV 02/01/25 09:00 Metoprolol Succinate 25 mg DAILY PO 01/31/25 10:00 01/31/25 11:29 25 MG Pantoprazole Sodium 40 mg DAILY IV 01/31/25 10:00 01/31/25 11:46 40 MG Apixaban 5 mg BID PO 01/31/25 22:00 UNV Examination Constitutional: Patient was alert and oriented to time, place and person and does not appear to be in any acute distress Gen - no pallor, no icterus, no cyanosis, no clubbing, no LAD, no edema . Skin - Patients skin is warm and dry. HEENT - normocephalic, atraumatic, moist mucous membranes Neck - full ROM, no LAD, jugular venous pulsation seen in the lower 1/3 of SCM Pulmonary - B/L equal breath sounds, no crackles , no wheezing, no stridor. cardiovascular - variable S1,S2 heard, no added sounds, no murmurs heard. GI - soft distended abdomen with no tenderness to palpation, shifting dullness present, no hepatospleenomegaly. Bowel sounds normoactive Neurological - Bilateral upper extremity strength 5/5, bilateral lower extremity strength 5/5, no facial droop, normal speech, no tremor, no sensory deficiets. laboratory and microbiology Laboratory Tests 01/31/25 07:44 01/31/25 05:44 Test 01/31/25 05:44 Range/Units Serum Glucose 100 74-106 mg/dL Problem List/Assessment/Plan Problem List/Assessment/Plan Assessment Acute on chronic compensated heart failure with reduced ejection fraction, NYHA class 3 Dilated cardiomyopathy, likely nonischemic Right lower lobe pneumonia likely due to Gram+/-/atypical bacteria Right ventricular thrombus History of pulmonary embolism History of schizophrenia Chest x-ray shows cardiomegaly, mostly clear lung severino without congestion or interstitial edema CT abdomen pelvis without contrast shows mild volume ascites, small right pleural effusion, small area of consolidation with air bronchograms in the right lung base Echocardiogram shows severe biventricular enlargement with severely reduced biventricular systolic function, LVEF 5%, large relatively immobile structure seen in RV apex likely thrombus Plan - as the patient does not have overt fluid overload, on Lasix 40 mg IV daily with strict in and out, low-sodium diet - continued on metoprolol succinate and empagliflozin - continued on Eliquis 5 mg b.i.d. - losartan 12.5 mg daily started by Cardiology - antibiotics ceftriaxone IV and doxycycline p.o. - patient was on telemetry Diet: Cardiac low-sodium PUD prophylaxis: Protonix DVT prophylaxis: on Eliquis Goals of care discussed with the patient for over 25 minutes. Full code Plan discussed with Dr. Abdi Plan discussed with: Patient My Orders My Orders Orders - BRITTANY VASQUEZ Procedure Category Date Status Time Ceftriaxone 1gm/50ml PHA 02/01/25 In Process D5w (Rocephin) 09:00 Metoprolol Xl PHA 01/31/25 In Process Succinate (Toprol Xl) 10:00 Furosemide Injection PHA 02/01/25 In Process (Lasix Injection) 10:00 Apixaban (Eliquis) PHA 01/31/25 Logged 22:00 Doxycycline Tablet PHA 01/31/25 Logged (Vibramycin Tablet) 22:00 BRITTANY VASQUEZ RESIDENT Jan 31, 2025 16:39
[2025-01-31] MEDS: DOXYCYCLINE 100 MG TAB/CAP PO SCH (21:36)
[2025-02-01] VITALS (9 sets, daily range): BP systolic 79–105; BP diastolic 50–72; PULSE 63–101; RESP 16–20; TEMP 97.1–98; O2SAT 94–98
[2025-02-01 05:44] LABS: Basophils # (auto) 0.1 10 ^3/uL (0-0.2); Eosinophils # (auto) 0.2 10 ^3/uL (0-0.8); Eosinophils % (auto) 2.6 % (0.0-7.0); Hematocrit 43.3 % (41.0-53.0); Hemoglobin 14.5 g/dL (13.5-17.5); Lymphocytes # (auto) 2.2 10 ^3/uL (0.4-5.4); Lymphocytes % (auto) 28.1 % (10.0-50.0); Mean Corpuscular Hgb Conc. 33.6 g/dL (32.0-36.0); Mean Corpuscular Volume 98.3 fL (80.0-100.0); Monocytes # (auto) 0.7 10 ^3/uL (0-1.3); Neutrophils # (auto) 4.5 10 ^3/uL (1.6-8.6); Neutrophils % (auto) 59.3 % (37.0-80.0); Platelet Count (auto) 177 10^3/uL (140-450); Red Cell Distribution Width 15.7 % (11.8-14.3); White Blood Cell 7.7 10^3/uL (4.4-10.8)
[2025-02-01 05:56] LABS: Anion Gap 6 (5-15); Carbon Dioxide 28 mmol/L (20-31); Chloride 104 mmol/L (98-107); Potassium 4.2 mmol/L (3.5-5.1); Sodium 138 mmol/L (136-145)
[2025-02-01 05:57] LABS: Calcium 9.3 mg/dL (8.7-10.4)
[2025-02-01 06:02] LABS: Blood Urea Nitrogen 21 mg/dL (9-23); Glucose 90 mg/dL (74-106)
[2025-02-01] MEDS: cefTRIAXone 1GM/50ML D5W 50 ML IV SCH (09:47)
[2025-02-01] MEDS: FUROSEMIDE 40 MG/4 ML VIAL IV SCH (09:53)
[2025-02-01] MEDS: BUMETANIDE 1 MG TAB PO ONE (13:26)
--- NOTE | 2025-02-01 13:49 | DVHPN2 ---
Consult Progress Note Subjective Other Systems: Patient remains in normal sinus rhythm on playground monitor. Denies any cardiac symptoms at time of assessment Objective vital signs Vital Sign Date Time Temp Pulse Resp B/P (MAP) Pulse Ox O2 Delivery O2 Flow Rate FiO2 02/01/25 13:26 102/54 02/01/25 12:30 97.1 98 16 96 97.1 02/01/25 07:56 Room Air* 0 21 Total Intake and Output 01/31/25 01/31/25 02/01/25 15:00 23:00 07:00 Intake Total 50 ml 300 ml 100 ml Output Total 280 ml Balance 50 ml 300 ml -180 ml medications Current Medications Medications Dose Ordered Sig/Albert Route Start Time Stop Time Status Last Admin Dose Admin Nitroglycerin 0.4 mg Q5MINP PRN SL 01/31/25 02:45 Morphine Sulfate 2 mg Q30M PRN IV 01/31/25 02:45 Sodium Chloride 10 ml Q8HR IV 01/31/25 06:00 02/01/25 13:42 10 ML Empaglifozin 10 mg DAILY PO 01/31/25 10:00 02/01/25 09:49 10 MG Losartan Potassium 12.5 mg DAILY PO 01/31/25 10:00 02/01/25 09:52 12.5 MG Furosemide 40 mg DAILY IV 02/01/25 10:00 Ceftriaxone Sodium 50 ml @ 100 mls/hr DAILY@09 IV 02/01/25 09:00 02/01/25 09:47 100 MLS/HR Metoprolol Succinate 25 mg DAILY PO 01/31/25 10:00 02/01/25 09:51 25 MG Pantoprazole Sodium 40 mg DAILY IV 01/31/25 10:00 02/01/25 09:49 40 MG Apixaban 5 mg BID PO 01/31/25 22:00 02/01/25 09:49 5 MG Doxycycline Monohydrate 100 mg Q12HR PO 01/31/25 22:00 02/01/25 09:49 100 MG Bumetanide 0.5 mg BIDD PO 02/01/25 18:00 Examination: GENERAL:Normal, LUNGS:Normal, CVS:Normal, NEURO:Normal laboratory and microbiology Laboratory Tests 02/01/25 05:08 Test 02/01/25 05:08 Range/Units Serum Glucose 90 74-106 mg/dL Problem List/Assessment/Plan Problem List/Assessment/Plan Acute on chronic compensated HFrEF, NYHA class III RV thrombus Dilated/biventricular cardiomyopathy Congenital heart disease with hx of atrial septal defect Nonsustained Ventricular tachycardia Tricuspid valve regurgitation, moderately severe degree Mitral valve regurgitation, moderate degree Pulmonary valve regurgitation, mild to moderate degree History of pulmonary embolus (on Eliquis) Morbid obesity, Class 3 Schizophrenia Plan/Recommendation We will continue with the following plan/recommendations (): Transthoracic echocardiogram reveals LVEF 5% with severe biventricular enlargement and a large relatively immobile structure seen in the RV apex, likely thrombus. The patient is currently on Eliquis therapy for previous PE diagnosis. We will recommend to continue NOAC therapy. The patient with biventricular heart failure is likely at end-stage heart failure and is currently being seen and evaluated at [facility] for Heart and lung transplant. Patient has most likely underwent ischemic workup given that he is being considered for heart and lung transplant at [place]. Continue GDMT for CHF as tolerated. Consider MRA (spironolactone) with stable potassium and creatinine level. Strict intake and output, daily weights, and maintain fluid restriction. Spoke with patient regarding the option for [facility] while he is being considered for transplants given his end-stage heart failure and high risk for cardiac arrhythmia. Patient understands and is agreeable for [facility]. Pending [facility] sales representative printing paper to fit patient. Thank you for allowing us to care for this patient. Please call with any questions or concerns. Thank you for allowing us to care for this patient. Please call with any questions or concerns. This medical document was created using an electronic medical record system with voice recognition software and computerized dictation system. Although this document has been carefully reviewed, there might still be some phonetic and typographical errors. Occasional wrong-word or ``sound-alike substitutions may have occurred due to the inherent limitations of voice recognition software. These areas are purely typographical due to imperfections of the software programs and do not reflect any compromise in the patient's medical care. Please read the chart carefully and recognize, using context, where these substitutions have occurred. Plan discussed with: Patient Date of Service: Feb 01, 2025 Billing Provider: JENNIFER PARIS Common Visit Codes: [id number] INP/OBS CARE(HIGH) JENNIFER PARIS Feb 01, 2025 13:49
[2025-02-01] MEDS: BUMETANIDE 1 MG TAB PO SCH (17:55)
--- NOTE | 2025-02-01 22:33 | DVHPNRES ---
Progress Note Date Seen: Feb 01, 2025 Resident Creating Document: JHAJJBRITTANY RESIDENT Medical Necessity Reason Pt with a Central, PICC or Fol: No Subjective Review of Systems Patient seen and examined at the bedside and reports no current nausea or vomiting. reports cough and left upper quadrant pain has improved Denies shortness of breath while at rest No chest pain, palpitations, headache or dizziness reported Objective vital signs Vital Sign Date Time Temp Pulse Resp B/P (MAP) Pulse Ox O2 Delivery O2 Flow Rate FiO2 02/01/25 17:55 88/63 02/01/25 17:25 97.3 63 16 98 97.3 02/01/25 07:56 Room Air* 0 21 Total Intake and Output 01/31/25 01/31/25 02/01/25 15:00 23:00 07:00 Intake Total 50 ml 300 ml 100 ml Output Total 280 ml Balance 50 ml 300 ml -180 ml medications Current Medications Medications Dose Ordered Sig/Albert Route Start Time Stop Time Status Last Admin Dose Admin Nitroglycerin 0.4 mg Q5MINP PRN SL 01/31/25 02:45 Morphine Sulfate 2 mg Q30M PRN IV 01/31/25 02:45 Sodium Chloride 10 ml Q8HR IV 01/31/25 06:00 02/01/25 21:25 10 ML Empaglifozin 10 mg DAILY PO 01/31/25 10:00 02/01/25 09:49 10 MG Losartan Potassium 12.5 mg DAILY PO 01/31/25 10:00 02/01/25 09:52 12.5 MG Furosemide 40 mg DAILY IV 02/01/25 10:00 Ceftriaxone Sodium 50 ml @ 100 mls/hr DAILY@09 IV 02/01/25 09:00 02/01/25 09:47 100 MLS/HR Metoprolol Succinate 25 mg DAILY PO 01/31/25 10:00 02/01/25 09:51 25 MG Pantoprazole Sodium 40 mg DAILY IV 01/31/25 10:00 02/01/25 09:49 40 MG Apixaban 5 mg BID PO 01/31/25 22:00 02/01/25 21:25 5 MG Doxycycline Monohydrate 100 mg Q12HR PO 01/31/25 22:00 02/01/25 21:25 100 MG Bumetanide 0.5 mg BIDD PO 02/01/25 18:00 02/01/25 17:55 0.5 MG Examination Constitutional: Patient was alert and oriented to time, place and person and does not appear to be in any acute distress Gen - no pallor, no icterus, no cyanosis, no clubbing, no LAD, no edema . Skin - Patients skin is warm and dry. HEENT - normocephalic, atraumatic, moist mucous membranes Neck - full ROM, no LAD, jugular venous pulsation seen in the lower 1/3 of SCM Pulmonary - B/L equal breath sounds, no crackles , no wheezing, no stridor. cardiovascular - variable S1,S2 heard, no added sounds, no murmurs heard. GI - soft distended abdomen with no tenderness to palpation, shifting dullness present, no hepatospleenomegaly. Bowel sounds normoactive Neurological - Bilateral upper extremity strength 5/5, bilateral lower extremity strength 5/5, no facial droop, normal speech, no tremor, no sensory deficiets. laboratory and microbiology Laboratory Tests 02/01/25 05:08 Test 02/01/25 05:08 Range/Units Serum Glucose 90 74-106 mg/dL Problem List/Assessment/Plan Problem List/Assessment/Plan Assessment Acute on chronic compensated heart failure with reduced ejection fraction, NYHA class 3 Dilated cardiomyopathy, likely nonischemic Right lower lobe pneumonia likely due to Gram+/-/atypical bacteria Right ventricular thrombus History of pulmonary embolism History of schizophrenia Chest x-ray shows cardiomegaly, mostly clear lung severino without congestion or interstitial edema CT abdomen pelvis without contrast shows mild volume ascites, small right pleural effusion, small area of consolidation with air bronchograms in the right lung base Echocardiogram shows severe biventricular enlargement with severely reduced biventricular systolic function, LVEF 5%, large relatively immobile structure seen in RV apex likely thrombus Plan - as the patient does not have overt fluid overload, on bumex 0.5mg bid po with strict in and out, low-sodium diet - continued on metoprolol succinate and empagliflozin - continued on Eliquis 5 mg b.i.d. - losartan 12.5 mg daily started by Cardiology - antibiotics ceftriaxone IV and doxycycline p.o. - patient was on telemetry - pending life vest Diet: Cardiac low-sodium PUD prophylaxis: Protonix DVT prophylaxis: on Eliquis Goals of care discussed with the patient for over 25 minutes. Full code Plan discussed with Dr. Abdi Plan discussed with: Patient My Orders My Orders Orders - BRITTANY VASQUEZ Procedure Category Date Status Time Bumetanide Tablet PHA 02/01/25 In Process (Bumex Tablet) 18:00 Communication Order ORDERS 02/01/25 Transmitted 13:45 BRITTANY VASQUEZ Feb 01, 2025 22:33
[2025-02-02] VITALS (8 sets, daily range): BP systolic 90–111; BP diastolic 58–75; PULSE 86–97; RESP 17–20; TEMP 97.4–98; O2SAT 95–99
[2025-02-02 07:20] LABS: Calcium 9.3 mg/dL (8.7-10.4); Chloride 100 mmol/L (98-107); Potassium 3.7 mmol/L (3.5-5.1)
[2025-02-02 07:21] LABS: Anion Gap 10 (5-15); Carbon Dioxide 25 mmol/L (20-31); Sodium 135 mmol/L (136-145)
[2025-02-02 07:26] LABS: BUN/Creatinine Ratio 17.7 (10.0-20.0); Blood Urea Nitrogen 22 mg/dL (9-23); Glucose 97 mg/dL (74-106)
--- NOTE | 2025-02-02 11:49 | DVHPN2 ---
Consult Progress Note Subjective Other Systems: The patient remains in normal sinus rhythm on continuous dip dyer. Denies any cardiac symptoms at time of assessment. Objective vital signs Vital Sign Date Time Temp Pulse Resp B/P (MAP) Pulse Ox O2 Delivery O2 Flow Rate FiO2 02/02/25 09:00 97.4 86 20 95/62 (73) 96 97.4 02/02/25 07:33 Room Air* 0 21 Total Intake and Output 02/01/25 02/01/25 02/02/25 15:00 23:00 07:00 Intake Total 50 ml 700 ml Output Total 475 ml Balance 50 ml 225 ml medications Current Medications Medications Dose Ordered Sig/Albert Route Start Time Stop Time Status Last Admin Dose Admin Nitroglycerin 0.4 mg Q5MINP PRN SL 01/31/25 02:45 Morphine Sulfate 2 mg Q30M PRN IV 01/31/25 02:45 Sodium Chloride 10 ml Q8HR IV 01/31/25 06:00 02/02/25 05:33 10 ML Empaglifozin 10 mg DAILY PO 01/31/25 10:00 02/02/25 08:31 10 MG Losartan Potassium 12.5 mg DAILY PO 01/31/25 10:00 02/02/25 08:32 12.5 MG Furosemide 40 mg DAILY IV 02/01/25 10:00 Ceftriaxone Sodium 50 ml @ 100 mls/hr DAILY@09 IV 02/01/25 09:00 02/02/25 08:31 100 MLS/HR Metoprolol Succinate 25 mg DAILY PO 01/31/25 10:00 02/02/25 08:32 25 MG Pantoprazole Sodium 40 mg DAILY IV 01/31/25 10:00 02/02/25 08:31 40 MG Apixaban 5 mg BID PO 01/31/25 22:00 02/02/25 08:31 5 MG Doxycycline Monohydrate 100 mg Q12HR PO 01/31/25 22:00 02/02/25 08:31 100 MG Bumetanide 0.5 mg BIDD PO 02/01/25 18:00 02/02/25 05:33 0.5 MG Examination: GENERAL:Normal, LUNGS:Normal, CVS:Normal, NEURO:Normal laboratory and microbiology Laboratory Tests 02/02/25 06:26 02/01/25 05:08 Test 02/02/25 06:26 Range/Units Serum Glucose 97 74-106 mg/dL Problem List/Assessment/Plan Problem List/Assessment/Plan Acute on chronic compensated HFrEF, NYHA class III RV thrombus Dilated/biventricular cardiomyopathy Congenital heart disease with hx of atrial septal defect Nonsustained Ventricular tachycardia Tricuspid valve regurgitation, moderately severe degree Mitral valve regurgitation, moderate degree Pulmonary valve regurgitation, mild to moderate degree History of pulmonary embolus (on Eliquis) Morbid obesity, Class 3 Schizophrenia Plan/Recommendation We will continue with the following plan/recommendations (): Transthoracic echocardiogram reveals LVEF 5% with severe biventricular enlargement and a large relatively immobile structure seen in the RV apex, likely thrombus. The patient is currently on Eliquis therapy for previous PE diagnosis. We will recommend to continue NOAC therapy. The patient with biventricular heart failure is likely at end-stage heart failure and is currently being seen and evaluated at [facility] for Heart and lung transplant. Patient has most likely underwent ischemic workup given that he is being considered for heart and lung transplant at [place]. Continue GDMT for CHF as tolerated. Strict intake and output, daily weights, and maintain fluid restriction. Spoke with patient regarding the option for [facility] while he is being considered for transplants given his end-stage heart failure and high risk for cardiac arrhythmia. Patient understands and is agreeable for [facility]. Pending [facility] vaccine customer representative to deliver Vest at bedside. Primary team plans for discharge today, the patient we will need to follow up with hemmer chainstitch at [facility]. Thank you for allowing us to care for this patient. Please call with any questions or concerns. Thank you for allowing us to care for this patient. Please call with any questions or concerns. This medical document was created using an electronic medical record system with voice recognition software and computerized dictation system. Although this document has been carefully reviewed, there might still be some phonetic and typographical errors. Occasional wrong-word or ``sound-alike substitutions may have occurred due to the inherent limitations of voice recognition software. These areas are purely typographical due to imperfections of the software programs and do not reflect any compromise in the patient's medical care. Please read the chart carefully and recognize, using context, where these substitutions have occurred. Plan discussed with: Patient Date of Service: Feb 02, 2025 Billing Provider: JENNIFER PARIS Common Visit Codes: [id number] INP/OBS CARE(HIGH) JENNIFER PARIS FILTRATION OPERATOR Feb 02, 2025 11:49
--- NOTE | 2025-02-02 15:08 | DVHDS2 ---
Discharge Summary Date of Admission Jan 31, 2025 at 02:45 Date of Discharge: Feb 02, 2025 Labs/Diagnostic Data: Laboratory Results Test 02/02/25 06:26 02/01/25 05:08 01/31/25 07:44 01/31/25 05:44 Sodium Level 135 mmol/L (136-145) Potassium Level 3.7 mmol/L (3.5-5.1) Chloride Level 100 mmol/L (98-107) Carbon Dioxide Level 25 mmol/L (20-31) Anion Gap 10 (5-15) Blood Urea Nitrogen 22 mg/dL (9-23) Creatinine 1.24 mg/dL (0.700-1.30) Glomerular Filtration Rate Calc 77 mL/min (>90) BUN/Creatinine Ratio 17.7 (10.0-20.0) Serum Glucose 97 mg/dL (74-106) Calcium Level 9.3 mg/dL (8.7-10.4) White Blood Count 7.7 10^3/uL (4.4-10.8) Red Blood Count 4.40 10^6/uL (4.5-5.90) Hemoglobin 14.5 g/dL (13.5-17.5) Hematocrit 43.3 % (41.0-53.0) Mean Corpuscular Volume 98.3 fL (80.0-100.0) Mean Corpuscular Hemoglobin 33.0 pg (28.0-32.0) Mean Corpuscular Hemoglobin Concent 33.6 g/dL (32.0-36.0) Red Cell Distribution Width 15.7 % (11.8-14.3) Platelet Count 177 10^3/uL (140-450) Mean Platelet Volume 10.3 fL (6.9-10.8) Neutrophils (%) (Auto) 59.3 % (37.0-80.0) Lymphocytes (%) (Auto) 28.1 % (10.0-50.0) Monocytes (%) (Auto) 9.0 % (0.0-12.0) Eosinophils (%) (Auto) 2.6 % (0.0-7.0) Basophils (%) (Auto) 1.0 % (0.0-2.0) Neutrophils # (Auto) 4.5 10 ^3/uL (1.6-8.6) Lymphocytes # (Auto) 2.2 10 ^3/uL (0.4-5.4) Monocytes # (Auto) 0.7 10 ^3/uL (0-1.3) Eosinophils # (Auto) 0.2 10 ^3/uL (0-0.8) Basophils # (Auto) 0.1 10 ^3/uL (0-0.2) Nucleated Red Blood Cells 0.0 % Free Thyroxine (T4) Calculated 1.09 ng/dL (0.89-1.76) Erythrocyte Sedimentation Rate 1 mm/hr (0-20) Prothrombin Time 14.9 sec (9.3-11.8) Prothrombin Time INR 1.46 (0.9-1.15) Activated Partial Thromboplast Time 25.9 SEC (24.5-34.5) Lactic Acid Level 1.5 mmol/L (0.4-2.0) Magnesium Level 2.4 mg/dL (1.6-2.6) Total Bilirubin 3.2 mg/dL (0.2-1.0) Aspartate Amino Transferase (AST) 32 U/L (13-40) Alanine Aminotransferase (ALT) 35 U/L (7-40) Alkaline Phosphatase 95 U/L (46-116) Troponin I High Sensitivity 43 ng/L (</=54) C-Reactive Protein High Sensitivity 0.55 mg/dL (<1.0) B-Type Natriuretic Peptide 1471.75 pg/mL (0-100) Total Protein 7.2 g/dL (5.7-8.2) Albumin 4.5 g/dL (3.2-4.8) Thyroid Stimulating Hormone (TSH) 6.94 uIU/mL (0.55-4.78) Plasma/Serum Blood Alcohol < 3.0 mg/dL (<10) Test 01/30/25 18:11 01/30/25 15:53 01/30/25 15:49 Urine Color Yellow (Yellow) Urine Clarity Clear (Clear) Urine pH 5.5 (5.0-9.0) Urine Specific [place] 1.010 (1.001-1.035) Urine Protein Negative (Negative) Urine Ketones Negative (Negative) Urine Blood Negative /uL (Negative) Urine Nitrite Negative (Negative) Urine Bilirubin Negative (Negative) Urine Urobilinogen Normal mg/dL (Negative) Urine Leukocyte Esterase Negative /uL (Negative) Urine RBC <1 /hpf (0 - 3) Urine Microscopic WBC 1 /HPF (0-3) Urine Squamous Epithelial Cells Few /hpf (<5) Urine Bacteria None seen /hpf (None Seen) Urine Mucus Few (None Seen) Urine Glucose 4+ mg/dL (Normal) Urine Opiates Screen Neg (NEGATIVE) Urine Fentanyl Screen Neg (NEGATIVE) Urine Barbiturates Screen Neg (NEGATIVE) Urine Phencyclidine Screen Neg (NEGATIVE) Urine Amphetamines Screen Neg (NEGATIVE) Urine Benzodiazepines Screen Neg (NEGATIVE) Urine Cocaine Screen Neg (NEGATIVE) Urine Cannabinoids Screen Neg (NEGATIVE) Influenza Type A Antigen Negative (Negative) Influenza Type B Antigen Negative (Negative) SARS-CoV-2 Antigen (Rapid) Negative (NEGATIVE) Lipase 48 U/L (12-53) Other Laboratory Tests 02/02/25 06:26 02/01/25 05:08 Brief Hx & Hospital Course: 39 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 Patient was given iv bumex, placed on telemetry, also possibly had viral URI/PNA with the exacerbation. Covered with zpak. seen by cardio, echo with 5%EF, RV mural thrombus. patient qualified for lifevest, stable to DC pending lifevest to bedside. to follow up with [facility] advanceD HF Condition at Discharge: Good Final Diagnosis/Problems List Acute on chronic compensated heart failure with reduced ejection fraction, NYHA class 3 Dilated cardiomyopathy, likely nonischemic Right lower lobe pneumonia likely due to Gram+/-/atypical bacteria Right ventricular thrombus History of pulmonary embolism History of schizophrenia Discharge Disposition: Home Discharge Instruct/Medications Diet: Consistent carbohydrate, Cardiac 2g Na,low cholest Activity: See Comment Follow Up/Referral: [facility] advanced cardiology 41 Discharge Statement: "Patient was advised to return to the ER or call 911 if any headaches, dizziness, shortness of breath, chest pain, abdominal pain, bleeding, fevers, or worsening of medical condition. Patient was counseled about treatment plan, medications, possible side effects, patientverbalized understanding. All questions were answered to the best of my ability. This discharge took greater then 30 minutes in planning, reviewing documentation, counseling the patient, and discussing with other team members." ASSESSMENT ASSESSMENT Assessment acute on chronic systolic heart failure exacerbation Date of Service: Feb 02, 2025 Billing Provider: INNA COREA MD Common Visit Codes: [id number] INP/OBS CARE(HIGH) INNA COREA MD Feb 02, 2025 15:08
[2025-02-02] MEDS ORDERED: LEVO500T91 PO (15:09)
== END 2025-02-02 22:10 | disposition home or self-care (01) | DRG 194 ==
LOC: ER 14:19 → OVERFLOW 01-31 02:45 → TELE-EAST 01-31 10:39
PROVIDERS: ADMIT Student in an Organized Health Care Education/Training Program; ATTEND Student in an Organized Health Care Education/Training Program
DX: I50.23 Acute on chronic systolic (congestive) heart failure (principal); J15.69 Pneumonia due to other Gram-negative bacteria; J15.9 Unspecified bacterial pneumonia; R18.8 Other ascites; I42.0 Dilated cardiomyopathy; I51.3 Intracardiac thrombosis, not elsewhere classified; Q21.10 Atrial septal defect, unspecified; Z68.31 Body mass index [BMI] 31.0-31.9, adult; E66.01 Morbid (severe) obesity due to excess calories; Z79.01 Long term (current) use of anticoagulants; Z20.822 Contact with and (suspected) exposure to COVID-19; F20.9 Schizophrenia, unspecified; I37.1 Nonrheumatic pulmonary valve insufficiency; Z86.711 Personal history of pulmonary embolism; Z90.49 Acquired absence of other specified parts of digestive tract; Z79.899 Other long term (current) drug therapy
CPT/HCPCS: 36415; 71045; 74176; 80048; 80053; 80307; 80320; 81001; 83605; 83690; 83735; 83880; 84439; 84443; 84484; 85025; 85610; 85652; 85730; 86141; 87426; 87804; 93005; 93306; 96365; 96375; G0378; J2405; J2470

== ENCOUNTER 2025-02-09 12:24 | Inpatient (IN) | payer OTHER ==
[~2025-02-09] VITALS: Ht 165.1 cm; Wt 91.7 kg
[~2025-02-09 12:24] MED LIST changes: +BUME2TAB5 PO; +DAPA1TAB4 PO; -FURO20TA3 PO; +LEVO500T91 PO; +METO25TA93 PO; +SPIR25TA8 PO
[2025-02-09 14:08] LABS: Basophils # (auto) 0 10 ^3/uL (0-0.2); Basophils % (auto) 0.4 % (0.0-2.0); Eosinophils # (auto) 0 10 ^3/uL (0-0.8); Eosinophils % (auto) 0.1 % (0.0-7.0); Hematocrit 47.2 % (41.0-53.0); Hemoglobin 15.8 g/dL (13.5-17.5); Lymphocytes # (auto) 1.2 10 ^3/uL (0.4-5.4); Lymphocytes % (auto) 11.5 % (10.0-50.0); Mean Corpuscular Hgb Conc. 33.5 g/dL (32.0-36.0); Mean Corpuscular Volume 98.3 fL (80.0-100.0); Monocytes # (auto) 0.7 10 ^3/uL (0-1.3); Monocytes % (auto) 7.1 % (0.0-12.0); Neutrophils # (auto) 8.5 10 ^3/uL (1.6-8.6); Neutrophils % (auto) 80.9 % (37.0-80.0); Nucleated Red Blood Cells % 0.1 %; Platelet Count (auto) 216 10^3/uL (140-450); Red Cell Distribution Width 15.8 % (11.8-14.3); White Blood Cell 10.5 10^3/uL (4.4-10.8)
--- NOTE | 2025-02-09 14:08 | ED.PDOC ---
History of Present Illness HPI Comments 39M presents to the ER w/ prior Hx of cholecystectomy which may be associated to the c/c of ABD pain. Pt report on having N/V/D, w/ epigastric pain for the past 3 days. PMHx of Schizophrenia, Developmental Delay, CHF, and Lung Failure. SHx of Skin Graft on left leg. Denies chills, fever, SOB, CP or no other associated symptoms, modifiers, recent injuries or sick contacts at this time. Chief Complaint: Abdominal Pain Time Seen by MD: 13:35 Primary Care Provider: ZION Jewell Notes: Nurses Notes, Medications, Allergies Allergies: Coded Allergies: NO KNOWN ALLERGIES (Unverified , 04/02/19) Home Meds Active Scripts Levofloxacin Hemihydrate (LEVOFLOXACIN) 500 Mg Tab, 1 TAB PO DAILY for 7 Days, #7 TAB Prov:INNA COREA MD 02/02/25 Reported Medications Apixaban Base (ELIQUIS) 5 Mg Tab, 1 TAB PO BID for 83 Days, #180 02/01/25 Metoprolol Succinate (Metoprolol Succinate Er) 25 Mg Tab, 1 TAB PO DAILY 01/31/25 Bumetanide (Bumetanide) 2 Mg Tab, 0.5 TAB PO BID 01/31/25 Dapagliflozin Propanediol (Farxiga) 10 Mg Tab, 1 TAB PO DAILY 01/31/25 Spironolactone (Spironolactone) 25 Mg Tab, 0.5 TAB PO DAILY 01/31/25 Information Source: Patient Mode of Arrival: Ambulatory Severity: Moderate Timing: Days Duration: Since onset, Days Prehospital treatment: None Past Medical History PAST MEDICAL HISTORY: CHF, Schizophrenia Past Medical History (Other): Developmental Delay and Lung Failure Surgical History: Cholecystectomy, Denies all surgeries Surgical History (Other): Skin Graft on left leg Family History Family History: Reviewed,noncontributory to illness, Unknown Social History Smoker: Non-Smoker Alcohol: Denies ETOH Use Drugs: Denies Drug Use Lives In: Home Constitutional: denies: chills, diaphoresis, fatigue, fever, malaise, sweats, weakness, others EENTM: denies: blurred vision, double vision, ear bleeding, ear discharge, ear drainage, ear pain, ear ringing, eye pain, eye redness, hearing loss, mouth pain, mouth swelling, nasal discharge, nose bleeding, nose congestion, nose pain, photophobia, tearing, throat pain, throat swelling, voice changes, others Respiratory: denies: cough, hemoptysis, orthopnea, SOB at rest, shortness of breath, SOB with excertion, stridor, wheezing, others Cardiovascular: denies: chest pain, dizzy spells, diaphoresis, Dyspnea on exertion, edema, irregular heart beat, left arm pain, lightheadedness, palpitations, PND, syncope, others Gastrointestinal: reports: abdominal pain, diarrhea, nausea, vomiting; denies: abdomen distended, blood streaked bowels, constipated, dysphagia, difficulty swallowing, hematemesis, melena, poor appetite, poor fluid intake, rectal bleeding, rectal pain, others Genitourinary: denies: burning, dysuria, flank pain, frequency, hematuria, incontinence, penile discharge, penile sore, pain, testicle pain, testicle swelling, urgency, others Neurological: denies: dizziness, fainting, headache, left sided numbness, left sided weakness, numbness, paresthesia, pre-existing deficit, right sided numbness, right sided weakness, seizure, speech problems, tingling, tremors, w eakness, others Musculoskeletal: denies: back pain, gout, joint pain, joint swelling, muscle pain, muscle stiffness, neck pain, others Integumetry: denies: bruises, change in color, change in hair/nails, dryness, laceration, lesions, lumps, rash, wounds, others Allergic/Immunocompromised: denies: Difficulty Healing, Frequent Infections, Hives, Itching, others Hematologic/Lymphatic: denies: anemia, blood clots, easy bleeding, easy bruising, swollen glands, others Endocrine: denies: excessive hunger, excessive sweating, excessive thirst, excessive urination, flushing, intolerance to cold, intolerance to heat, unexplained weight gain, unexplained weight loss, others Psychiatric: denies: anxiety, bipolar disorder, depression, hopeless, panic disorder, schizophrenia, sleepless, suicidal, others All Other Systems: Reviewed and Negative Physical Exam General Appearance: Moderate Distress, Normal HEENT: Normal ENT Inspection, Pharynx Normal, TMs Normal Neck: Full Range of Motion, Non-Tender, Normal, Normal Inspection Respiratory: Accessory Muscle Use, Chest Non-Tender, Respiratory Distress, Other (Coarse breath sounds) Cardiovascular: No Edema, No JVD, No Murmur, No Gallop, Normal Peripheral Pulses, Tachycardia Breast Exam: Deferred Gastrointestinal: Distended, No Organomegaly, No Pulsatile Mass, Normal Bowel Sounds, Soft Genitalia: Deferred Pelvic: Deferred Rectal: Deferred Extremities: No calf tenderness, Normal capillary refill, Normal inspection, Normal range of motion, Non-tender, No pedal edema Musculoskeletal : Apperance: Normal Neurologic: Alert, manager mental health II-XII nml as Tested, No Motor Deficits, Normal Affect, Normal Mood, No Sensory Deficits Cerebellar Function: Normal Reflexes: Normal Skin: Dry, Pallor, Warm Peripheral Pulses: 3+ Radial (R), 3+ Radial (L) Lymphatic: No Adenopathy Was a procedure done? Was a procedure done?: No EKG EKG : Pulse Rate (adult): 120 [place]: Normal Cardiac Rhythm: NSR Differential Dx Considerations may include: CHF Electrolyte imbalance X-Ray, Labs, Meds, VS Vital Signs Date Time Temp Pulse Resp B/P (MAP) Pulse Ox O2 Delivery O2 Flow Rate FiO2 02/09/25 16:54 125 22 122/84 (97) 96 02/09/25 14:16 115 22 129/37 (67) 97 02/09/25 12:25 98.4 117 18 115/80 (92) 97 98.4 Lab Test 02/09/25 13:47 Range/Units White Blood Count 10.5 4.4-10.8 10^3/uL Red Blood Count 4.80 4.5-5.90 10^6/uL Hemoglobin 15.8 13.5-17.5 g/dL Hematocrit 47.2 41.0-53.0 % Mean Corpuscular Volume 98.3 80.0-100.0 fL Mean Corpuscular Hemoglobin 33.0 H 28.0-32.0 pg Mean Corpuscular Hemoglobin Concent 33.5 32.0-36.0 g/dL Red Cell Distribution Width 15.8 H 11.8-14.3 % Platelet Count 216 140-450 10^3/uL Mean Platelet Volume 10.1 6.9-10.8 fL Neutrophils (%) (Auto) 80.9 H 37.0-80.0 % Lymphocytes (%) (Auto) 11.5 10.0-50.0 % Monocytes (%) (Auto) 7.1 0.0-12.0 % Eosinophils (%) (Auto) 0.1 0.0-7.0 % Basophils (%) (Auto) 0.4 0.0-2.0 % Neutrophils # (Auto) 8.5 1.6-8.6 10 ^3/uL Lymphocytes # (Auto) 1.2 0.4-5.4 10 ^3/uL Monocytes # (Auto) 0.7 0-1.3 10 ^3/uL Eosinophils # (Auto) 0 0-0.8 10 ^3/uL Basophils # (Auto) 0 0-0.2 10 ^3/uL Nucleated Red Blood Cells 0.1 % Sodium Level 139 136-145 mmol/L Potassium Level 4.2 3.5-5.1 mmol/L Chloride Level 103 98-107 mmol/L Carbon Dioxide Level 23 20-31 mmol/L Anion Gap 13 5-15 Blood Urea Nitrogen 24 H 9-23 mg/dL Creatinine 1.24 0.700-1.30 mg/dL Glomerular Filtration Rate Calc 77 >90 mL/min BUN/Creatinine Ratio 19.4 10.0-20.0 Serum Glucose 178 H 74-106 mg/dL Calcium Level 10.0 8.7-10.4 mg/dL Troponin I High Sensitivity 137 *H </=54 ng/L B-Type Natriuretic Peptide 3307.17 0-100 pg/mL Patient alert. He has difficulty expressing why he is here. Abdomen is slightly distended. Saturation pristine on room air. Tachycardia. He possibly had CHF. Chest x-ray does show cardiomegaly. BNP elevated. Was given Lasix. Blood sugar elevated. Cardiac marker elevated. WBC within normal limits. Physical examination does point to heart pathology. Reviewed his history. Explained to the patient. Continue monitoring. Echo. Cardiology consultation. Time of 1ST Reevaluation: 14:05 Reevaluation 1ST: Unchanged Patient Education/Counseling: Diagnosis, Treatment, Prognosis Family Education/Counseling: No Family Present Departure 1 Departure Time of Disposition: 17:00 Impression: Primary Impression: CHF (congestive heart failure) Qualified Codes: I50.43 - Acute on chronic combined systolic (congestive) and diastolic (congestive) heart failure Additional Impressions: Ascites Qualified Codes: R18.8 - Other ascites NSTEMI (non-ST elevated myocardial infarction) Disposition: 09 ADMITTED INPATIENT Admit to: Med Surg Condition: Guarded Critical Care Note Critical Care Time?: Yes (90 min-critical care time only) Critical care comment: Continue to monitor Stability Stability form required: No Heart Score Heart Score: Heart Score Response (Comments) Value History Slightly Suspicious 0 EKG Normal 0 Age <45 0 Risk Factors 1 or 2 risk factors 1 Troponin >3 x's Normal limit 2 Total 3 I personally scribed for MICHAEL SOLIZ MD ([email or web address]) on 02/09/25 at 14:08. Electronically submitted by Michael Farmer ([email or web address]). MICHAEL SOLIZ MD Feb 09, 2025 14:08
[2025-02-09 14:25] LABS: Chloride 103 mmol/L (98-107); Potassium 4.2 mmol/L (3.5-5.1); Sodium 139 mmol/L (136-145)
[2025-02-09 14:26] LABS: Anion Gap 13 (5-15); Carbon Dioxide 23 mmol/L (20-31)
[2025-02-09 14:32] LABS: BUN/Creatinine Ratio 19.4 (10.0-20.0); Blood Urea Nitrogen 24 mg/dL (9-23); Glucose 178 mg/dL (74-106)
--- NOTE | 2025-02-09 16:20 | DVH ---
CHEST RADIOGRAPH Indication: sob Technique: Single frontal view of the chest was obtained Comparison: XY CHEST PORTABLE on DOS: 01/30/25, XY CHEST XRAY 1 VIEW on DOS: 09/06/24, XY CHEST PORTABLE on DOS: 09/05/24 FINDINGS: Lines and Tubes: None Lungs: No focal consolidation. Pleura: No effusion. No pneumothorax. Cardiomediastinal contours: Swck-df-[id number] cardiomegaly Bones: No acute osseous abnormality. IMPRESSION: No acute cardiopulmonary disease. [id number] cardiomegaly.
--- NOTE | 2025-02-09 17:43 | DVH ---
Exam: CT CT AB PEL WO CON-NO ORAL OR IV History: ascites Comparison Study: None available at time of dictation. TECHNIQUE: Multidetector CT of the abdomen and pelvis without IV contrast. Axial, coronal and sagitta l multiplanar reformats were obtained from the axial data set by the technologist. Radiation Dose Information: CT Dose: CTDI volume is 19.16 mGy. Dose-length product is 1007.82 mGy*cm FINDINGS: Glos-xe-gmirfaga right-sided effusion with bibasilar atelectasis. Moderate cardiomegaly. Zpwc-ma-abnchuvv ascites. No evidence of intraperitoneal free air. Status post cholecystectomy. Mild hepatomegaly. Otherwise, liver, spleen, pancreas and adrenal gland s are unremarkable. Kidneys, ureters and urinary bladder are unremarkable. Prostate normal in size with Foci of calcifica tion. Stomach is unremarkable. Small bowel loops unremarkable. Appendix is unremarkable. Moderate amount o f fecal material within the colon. Mild distal rectal wall thickening. No evidence of aortic aneurysm. No significant lymphadenopathy. Small fat containing left inguinal hernia. Yoyc-lq-lmqrkjmi body wall edema. No destructive osseous l esions are noted. IMPRESSION: Small to moderate ascites. Small to moderate right-sided pleural effusion. Uaau-cv-llqrhxqy body wall edema. Moderate amount of fecal material within the colon. Mild rectal wall thickening. Correlate for poss ible stercoral colitis. Moderate cardiomegaly.
[2025-02-09] MEDS: ENOXAPARIN SOD 100 MG/1 ML SYRINGE SC ONE (18:13)
[2025-02-09] MEDS: FUROSEMIDE 40 MG/4 ML VIAL IV ONE (18:20)
[2025-02-09 18:26] VITALS: PULSE 135; RESP 20; O2SAT 97
[2025-02-09] MEDS ORDERED: POLYETHYLENE GLYCOL 17 GM PWDR PO PRN (19:00)
[2025-02-09] MEDS ORDERED: BISACODYL 5 MG EC TAB PO PRN (19:00)
--- NOTE | 2025-02-09 19:10 | DVHHP2 ---
Admitting Diagnosis: Abdominal pain History of Present Illness 39M presents to the ER w/ prior Hx of cholecystectomy which may be associated to the c/c of ABD pain. Pt report on having N/V/D, w/ epigastric pain for the past 3 days. PMHx of Schizophrenia, Developmental Delay, CHF, and Lung Failure. SHx of Skin Graft on left leg. Denies chills, fever, SOB, CP or no other associated symptoms, modifiers, recent injuries or sick contacts at this time. PAST MEDICAL HISTORY: CHF, Schizophrenia Past Medical History (Other): Developmental Delay and Lung Failure Surgical History: Cholecystectomy, Denies all surgeries Surgical History (Other): Skin Graft on left leg Family History Family History: Reviewed,noncontributory to illness, Unknown Social History Smoker: Non-Smoker Alcohol: Denies ETOH Use Drugs: Denies Drug Use Lives In: Home Patient Family History: Cardiovascular disease Diabetes mellitus G8 FATHER, , Age: 40's - 50 FH: heart disease G8 FATHER, , Age: 40's - 50 Allergies: Coded Allergies: NO KNOWN ALLERGIES (Unverified , 04/02/19) Home Meds Active Scripts Levofloxacin Hemihydrate (LEVOFLOXACIN) 500 Mg Tab, 1 TAB PO DAILY for 7 Days, #7 TAB Prov:INNA COREA MD 02/02/25 Reported Medications Apixaban Base (ELIQUIS) 5 Mg Tab, 1 TAB PO BID for 83 Days, #180 02/01/25 Metoprolol Succinate (Metoprolol Succinate Er) 25 Mg Tab, 1 TAB PO DAILY 01/31/25 Bumetanide (Bumetanide) 2 Mg Tab, 0.5 TAB PO BID 01/31/25 Dapagliflozin Propanediol (Farxiga) 10 Mg Tab, 1 TAB PO DAILY 01/31/25 Spironolactone (Spironolactone) 25 Mg Tab, 0.5 TAB PO DAILY 01/31/25 Vital Signs Vital Signs Date Time Temp Pulse Resp B/P (MAP) Pulse Ox O2 Delivery O2 Flow Rate FiO2 02/09/25 18:40 110 18 125/93 (104) 96 02/09/25 18:26 Room Air* 0 21 02/09/25 18:05 98.9 98.9 Physical Exam Generally 39 years old male, well nourished well developed. No apparent distress HEENT-atraumatic normocephalic Heart-regular rate and rhythm Lungs decreased breath sounds on the right lower lung severino Abdomen soft, nontender nondistended Musculoskeletal-pedal edema bilaterally no, neuro-AO x3, no focal deficits Results Labs Test 02/09/25 13:47 Range/Units White Blood Count 10.5 4.4-10.8 10^3/uL Red Blood Count 4.80 4.5-5.90 10^6/uL Hemoglobin 15.8 13.5-17.5 g/dL Hematocrit 47.2 41.0-53.0 % Mean Corpuscular Volume 98.3 80.0-100.0 fL Mean Corpuscular Hemoglobin 33.0 H 28.0-32.0 pg Mean Corpuscular Hemoglobin Concent 33.5 32.0-36.0 g/dL Red Cell Distribution Width 15.8 H 11.8-14.3 % Platelet Count 216 140-450 10^3/uL Mean Platelet Volume 10.1 6.9-10.8 fL Neutrophils (%) (Auto) 80.9 H 37.0-80.0 % Lymphocytes (%) (Auto) 11.5 10.0-50.0 % Monocytes (%) (Auto) 7.1 0.0-12.0 % Eosinophils (%) (Auto) 0.1 0.0-7.0 % Basophils (%) (Auto) 0.4 0.0-2.0 % Neutrophils # (Auto) 8.5 1.6-8.6 10 ^3/uL Lymphocytes # (Auto) 1.2 0.4-5.4 10 ^3/uL Monocytes # (Auto) 0.7 0-1.3 10 ^3/uL Eosinophils # (Auto) 0 0-0.8 10 ^3/uL Basophils # (Auto) 0 0-0.2 10 ^3/uL Nucleated Red Blood Cells 0.1 % Sodium Level 139 136-145 mmol/L Potassium Level 4.2 3.5-5.1 mmol/L Chloride Level 103 98-107 mmol/L Carbon Dioxide Level 23 20-31 mmol/L Anion Gap 13 5-15 Blood Urea Nitrogen 24 H 9-23 mg/dL Creatinine 1.24 0.700-1.30 mg/dL Glomerular Filtration Rate Calc 77 >90 mL/min BUN/Creatinine Ratio 19.4 10.0-20.0 Serum Glucose 178 H 74-106 mg/dL Calcium Level 10.0 8.7-10.4 mg/dL Troponin I High Sensitivity 137 *H </=54 ng/L B-Type Natriuretic Peptide 3307.17 0-100 pg/mL Primary Diagnosis acute chf constipation elevated trop likely due to chf Plan Elevated troponin, trend troponin q.6 until plateau Check echo of the heart Venous 41 b.i.d. Daily weight Strict in and out Fluid restriction Optimize potassium greater than four, magnesium greater than two Cardiology consult elevated troponin I the CHF Colace, Dulcolax, MiraLax Cardiac diet Eliquis b.i.d. for DVT prophylaxis GI prophylaxis Full code Plan discussed with: Patient Problems List: (1) Constipation (2) Elevated troponin (3) CHF (congestive heart failure) Status: Acute Date of Service: Feb 09, 2025 Billing Provider: LILI MARTIN MD Common Visit Codes: [id number] INP/OBS CARE (HIGH) LILI MARTIN MD Feb 09, 2025 19:10
[2025-02-09] MEDS: METOPROLOL TARTRATE 25 MG TAB PO ONE (20:31)
[2025-02-09] MEDS: APIXABAN 5 MG TAB PO SCH (21:50)
[2025-02-09] MEDS: DOCUSATE SOD 100 MG CAP PO SCH (21:51)
[2025-02-09 22:39] VITALS: PULSE 145; RESP 20; O2SAT 97
[2025-02-09] MEDS: LABETALOL HCL 20 MG/4 ML VL IV ONE ×2 (22:53→22:57)
[2025-02-10] MEDS: FUROSEMIDE 40 MG/4 ML VIAL IV SCH (06:36)
[2025-02-10 06:46] LABS: Basophils # (auto) 0 10 ^3/uL (0-0.2); Basophils % (auto) 0.1 % (0.0-2.0); Eosinophils # (auto) 0 10 ^3/uL (0-0.8); Hematocrit 50.4 % (41.0-53.0); Hemoglobin 16.3 g/dL (13.5-17.5); Lymphocytes # (auto) 1.3 10 ^3/uL (0.4-5.4); Lymphocytes % (auto) 12.1 % (10.0-50.0); Mean Corpuscular Hemoglobin 32.1 pg (28.0-32.0); Mean Corpuscular Hgb Conc. 32.3 g/dL (32.0-36.0); Mean Corpuscular Volume 99.4 fL (80.0-100.0); Monocytes # (auto) 0.9 10 ^3/uL (0-1.3); Monocytes % (auto) 8.5 % (0.0-12.0); Neutrophils # (auto) 8.6 10 ^3/uL (1.6-8.6); Neutrophils % (auto) 79.3 % (37.0-80.0); Nucleated Red Blood Cells % 0.3 %; Platelet Count (auto) 194 10^3/uL (140-450); Red Blood Cells 5.07 10^6/uL (4.5-5.90); Red Cell Distribution Width 16.3 % (11.8-14.3); White Blood Cell 10.9 10^3/uL (4.4-10.8)
[2025-02-10 07:22] LABS: Albumin 4.5 g/dL (3.2-4.8); Alkaline Phosphatase 99 U/L (46-116); Anion Gap 16 (5-15); BUN/Creatinine Ratio 20.7 (10.0-20.0); Carbon Dioxide 20 mmol/L (20-31); Chloride 106 mmol/L (98-107); Magnesium 2.6 mg/dL (1.6-2.6); Potassium 4.6 mmol/L (3.5-5.1); Sodium 142 mmol/L (136-145); Total Protein 7.1 g/dL (5.7-8.2)
[2025-02-10 07:46] LABS: Alanine Aminotransferase 343 U/L (7-40); Aspartate Aminotransferase 527 U/L (13-40); Bilirubin, Total 4.3 mg/dL (0.2-1.0); Blood Urea Nitrogen 29 mg/dL (9-23); Calcium 10.4 mg/dL (8.7-10.4); Glucose 120 mg/dL (74-106)
[2025-02-10 08:06] VITALS: PULSE 116; RESP 16; O2SAT 95
[2025-02-10] MEDS: SPIRONOLACTONE 25 MG TAB PO SCH (09:54)
[2025-02-10] MEDS: METOPROLOL SUCCINATE XL 50 MG TAB PO SCH (09:54)
[2025-02-10] MEDS ORDERED: DAPAGLIFLOZIN 5 MG TAB PO SCH (10:00)
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
[2025-02-10] MEDS: EMPAGLIFLOZIN 10 MG TAB PO SCH (11:05)
[2025-02-10] MEDS ORDERED: HALOPERIDOL LACTATE 5 MG/ML INJ VIAL IV PRN (13:00)
--- NOTE | 2025-02-10 13:44 | DVHPN2 ---
Subjective I am assuming the care of the patient was from today onwards. Patient has a delusional thoughts and behavior. I have talked to patient was mom on the phone who told me that he does have a schizophrenia currently not taking any medications although he was taking Depakote in the past. 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 Medications Current Medications Medications Dose Ordered Sig/Albert Route Start Time Stop Time Status Last Admin Dose Admin Bisacodyl 5 mg DAILY PRN PO 02/09/25 19:00 Polyethylene Glycol 17 gm DAILY PRN PO 02/09/25 19:00 Docusate Sodium 100 mg BID PO 02/09/25 22:00 02/09/25 21:51 100 MG Apixaban 5 mg BID PO 02/09/25 22:00 02/10/25 09:53 5 MG Spironolactone 12.5 mg DAILY PO 02/10/25 10:00 02/10/25 09:54 12.5 MG Metoprolol Succinate 25 mg DAILY PO 02/10/25 10:00 02/10/25 09:54 25 MG Furosemide 40 mg BIDD IV 02/10/25 06:00 02/10/25 06:36 40 MG Empaglifozin 10 mg DAILY PO 02/10/25 10:15 02/10/25 11:05 10 MG Sacubitril/ Valsartan 0.5 tab BID PO 02/10/25 22:00 Divalproex Sodium 500 mg BID PO 02/10/25 12:45 02/10/25 13:30 500 MG Haloperidol Lactate 2.5 mg Q8HP PRN IV 02/10/25 13:00 Laboratory Results Laboratory Tests 02/10/25 06:08 Chemistry Test 02/09/25 13:47 02/10/25 06:08 Calcium Level 10.0 mg/dL (8.7-10.4) 10.4 mg/dL (8.7-10.4) Albumin 4.5 g/dL (3.2-4.8) Magnesium Level 2.6 mg/dL (1.6-2.6) Total Protein 7.1 g/dL (5.7-8.2) Cardiac Markers Test 02/09/25 13:47 B-Type Natriuretic Peptide 3307.17 pg/mL (0-100) LFT Test 02/10/25 06:08 Alanine Aminotransferase (ALT) 343 U/L (7-40) H Alkaline Phosphatase 99 U/L (46-116) Aspartate Amino Transferase (AST) 527 U/L (13-40) H Total Bilirubin 4.3 mg/dL (0.2-1.0) H Assessment/Plan Assessment/Plan 39-year-old male with a known history of dilated cardiomyopathy initially presented to the hospital with the abdominal pain found to have 1. Acute on chronic decompensated congestive heart failure with systolic dysfunction 2. Congenital heart disease with a history of atrioseptal defect 3. Dilated cardiomyopathy 4. RV thrombus currently on Eliquis 5. Schizophrenia with the acute psychotic episodes 6. Constipation 7. Elevated troponin suspect secondary to acute CHF exacerbation 8. Morbid obesity classI -start low-dose of Depakote, tele psych-consultation Continue IV diuretics, follow up Cardiology recommendations Plan discussed with: Other My Orders Orders - YASSINE RABAGO MD Procedure Category Date Status Time Divalproex Dr Tablet PHA 02/10/25 In Process (Depakote "Dr" Tabl 12:45 Soc Telemed Psych CONS 02/10/25 Transmitted Consult 12:34 Haloperidol Lactate PHA 02/10/25 In Process Injection (Haldol) 13:00 Date of Service: Feb 10, 2025 Billing Provider: YASSINE RABAGO MD Common Visit Codes: [id number] INP/OBS CARE(MOD) YASSINE RABAGO MD Feb 10, 2025 13:44
[2025-02-10 16:47] VITALS: PULSE 116; RESP 20; O2SAT 97
[2025-02-10 17:52] VITALS: BP 91/72; PULSE 116; RESP 20; TEMP 97.9; O2SAT 97
[2025-02-10 21:00] VITALS: BP 106/82; PULSE 114; RESP 16; TEMP 97.8; O2SAT 95
[2025-02-10] MEDS: SACUBITRIL-VALSARTAN 24mg/26mg TAB PO SCH (21:22)
[2025-02-11] VITALS (8 sets, daily range): BP systolic 80–97; BP diastolic 54–62; PULSE 93–108; RESP 18–20; TEMP 97.6–98.1; O2SAT 96–98
[2025-02-11 05:17] LABS: Basophils # (auto) 0 10 ^3/uL (0-0.2); Basophils % (auto) 0.3 % (0.0-2.0); Eosinophils # (auto) 0 10 ^3/uL (0-0.8); Eosinophils % (auto) 0.2 % (0.0-7.0); Hematocrit 45.1 % (41.0-53.0); Hemoglobin 14.6 g/dL (13.5-17.5); Lymphocytes # (auto) 2.3 10 ^3/uL (0.4-5.4); Lymphocytes % (auto) 21.7 % (10.0-50.0); Mean Corpuscular Hgb Conc. 32.4 g/dL (32.0-36.0); Mean Corpuscular Volume 98.7 fL (80.0-100.0); Monocytes # (auto) 0.9 10 ^3/uL (0-1.3); Monocytes % (auto) 8.4 % (0.0-12.0); Neutrophils # (auto) 7.4 10 ^3/uL (1.6-8.6); Neutrophils % (auto) 69.4 % (37.0-80.0); Nucleated Red Blood Cells % 0.4 %; Platelet Count (auto) 165 10^3/uL (140-450); Red Blood Cells 4.57 10^6/uL (4.5-5.90); Red Cell Distribution Width 16.1 % (11.8-14.3); White Blood Cell 10.6 10^3/uL (4.4-10.8)
[2025-02-11 05:26] LABS: Alkaline Phosphatase 84 U/L (46-116); Anion Gap 12 (5-15); BUN/Creatinine Ratio 26.3 (10.0-20.0); Calcium 9.5 mg/dL (8.7-10.4); Carbon Dioxide 24 mmol/L (20-31); Chloride 103 mmol/L (98-107); Glucose 93 mg/dL (74-106); Magnesium 2.5 mg/dL (1.6-2.6); Potassium 3.9 mmol/L (3.5-5.1); Sodium 139 mmol/L (136-145); Total Protein 6.3 g/dL (5.7-8.2)
[2025-02-11 05:27] LABS: Alanine Aminotransferase 828 U/L (7-40); Albumin 3.8 g/dL (3.2-4.8); Blood Urea Nitrogen 36 mg/dL (9-23)
[2025-02-11 05:32] LABS: Bilirubin, Total 3.6 mg/dL (0.2-1.0)
[2025-02-11 06:36] LABS: Aspartate Aminotransferase 1275 U/L (13-40)
--- NOTE | 2025-02-11 10:46 | DVHPN2 ---
[facility] 02/11/25 1046: Consult Progress Note Date Seen: Feb 11, 2025 Subjective Patient reports: Feels better Review of Systems: CVS:Normal, RESPIRATORY:Normal, NEURO:Normal Other Systems: Denies any cardiac symptoms Objective vital signs Vital Sign Date Time Temp Pulse Resp B/P (MAP) Pulse Ox O2 Delivery O2 Flow Rate FiO2 02/11/25 09:00 97.7 98 18 96/54 (68) 96 97.7 02/10/25 20:00 Room Air* 0 21 Total Intake and Output 02/10/25 02/10/25 02/11/25 15:00 23:00 07:00 Intake Total 400 ml 0 ml 350 ml Output Total 600 ml 200 ml 500 ml Balance -200 ml -200 ml -150 ml medications Current Medications Medications Dose Ordered Sig/Albert Route Start Time Stop Time Status Last Admin Dose Admin Bisacodyl 5 mg DAILY PRN PO 02/09/25 19:00 Polyethylene Glycol 17 gm DAILY PRN PO 02/09/25 19:00 Docusate Sodium 100 mg BID PO 02/09/25 22:00 02/10/25 21:22 100 MG Apixaban 5 mg BID PO 02/09/25 22:00 02/10/25 21:23 5 MG Spironolactone 12.5 mg DAILY PO 02/10/25 10:00 02/10/25 09:54 12.5 MG Metoprolol Succinate 25 mg DAILY PO 02/10/25 10:00 02/10/25 09:54 25 MG Furosemide 40 mg BIDD IV 02/10/25 06:00 02/11/25 05:53 40 MG Empaglifozin 10 mg DAILY PO 02/10/25 10:15 02/10/25 11:05 10 MG Sacubitril/ Valsartan 0.5 tab BID PO 02/10/25 22:00 02/10/25 21:22 0.5 TAB Divalproex Sodium 500 mg BID PO 02/10/25 12:45 02/10/25 21:22 500 MG Haloperidol Lactate 2.5 mg Q8HP PRN IV 02/10/25 13:00 Examination: LUNGS:Normal, CVS:Normal (NSR with NSVT events), ABDOMEN:Normal (Ascites improved), NEURO:Normal laboratory and microbiology Laboratory Tests 02/11/25 04:25 Test 4/13/25 04:25 Range/Units Serum Glucose 93 74-106 mg/dL Problem List/Assessment/Plan Problem List/Assessment/Plan Acute on chronic decompensated HFrEF with LVEF of 5%, NYHA class III Mitral/pulmonary/tricuspid valves regurgitation, moderate to severe degree Congenital heart disease with hx of atrial septal defect Dilated/biventricular cardiomyopathy RV thrombus with Eliquis therapy Nonsustained Ventricular tachycardia History of pulmonary embolus Schizophrenia with acute psychotic episodes Morbid obesity, Class 3 Anasarca Plan/Recommendation (Dr. Osborne) Transthoracic echocardiogram revealed LVEF 5% with severe biventricular enlargement and a large relatively immobile structure seen in the RV apex, likely to be a thrombus (01/31/2025). Continue DOAC therapy with Eliquis. The patient with biventricular/end-stage heart failure is currently being seen and evaluated at [facility] for heart and lung transplant with upcoming appointment on 02/14/25. Continue GDMT for CHF and up-titrate as tolerated. Strict intake and output, daily weights, and maintain fluid restriction. Continue Zoll Lifevest given end-stage heart failure, high risk for ventricular cardiac arrhythmias, and prolonged QTc >500 ms. There is no further cardiac work-up indicated at this time. Kindly call if in need to re-consult. Thank you for allowing us to care for this patient. This medical document was created using an electronic medical record system with voice recognition software and computerized dictation system. Although this document has been carefully reviewed, there might still be some phonetic and typographical errors. Occasional wrong-word or ``sound-alike substitutions may have occurred due to the inherent limitations of voice recognition software. These areas are purely typographical due to imperfections of the software programs and do not reflect any compromise in the patient's medical care. Please read the chart carefully and recognize, using context, where these substitutions have occurred. Plan discussed with: Patient, Other (mother) Date of Service: Feb 11, 2025 Billing Provider: EUGENE DENTON Cardiology Common Codes: [id number] HOSP CARE(High VAZQUEZ OSBORNE MD 02/11/25 1555: Consult Progress Note Problem List/Assessment/Plan Problem List/Assessment/Plan very poor prognosis, should seek care at [facility] not here, little to offer him currently EUGENE DENTON Feb 11, 2025 10:46 VAZQUEZ OSBORNE MD Feb 11, 2025 15:55
--- NOTE | 2025-02-11 16:15 | DVHPN2 ---
Subjective Patient has a delusional thoughts and behavior. I have talked to patient 's mom on the phone yesterday who told me that he does have a schizophrenia currently not taking any medications although he was taking Depakote in the past. Today patient is more calm. Tele psych consultation still pending. 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 Medications Current Medications Medications Dose Ordered Sig/Albert Route Start Time Stop Time Status Last Admin Dose Admin Bisacodyl 5 mg DAILY PRN PO 02/09/25 19:00 Polyethylene Glycol 17 gm DAILY PRN PO 02/09/25 19:00 Docusate Sodium 100 mg BID PO 02/09/25 22:00 02/11/25 11:03 100 MG Apixaban 5 mg BID PO 02/09/25 22:00 02/11/25 11:03 5 MG Spironolactone 12.5 mg DAILY PO 02/10/25 10:00 02/10/25 09:54 12.5 MG Metoprolol Succinate 25 mg DAILY PO 02/10/25 10:00 02/10/25 09:54 25 MG Furosemide 40 mg BIDD IV 02/10/25 06:00 02/11/25 05:53 40 MG Empaglifozin 10 mg DAILY PO 02/10/25 10:15 02/11/25 11:03 10 MG Sacubitril/ Valsartan 0.5 tab BID PO 02/10/25 22:00 02/10/25 21:22 0.5 TAB Divalproex Sodium 500 mg BID PO 02/10/25 12:45 02/11/25 10:00 500 MG Haloperidol Lactate 2.5 mg Q8HP PRN IV 02/10/25 13:00 Laboratory Results Laboratory Tests 02/11/25 04:25 Chemistry Test 02/11/25 04:25 Albumin 3.8 g/dL (3.2-4.8) Calcium Level 9.5 mg/dL (8.7-10.4) Magnesium Level 2.5 mg/dL (1.6-2.6) Total Protein 6.3 g/dL (5.7-8.2) LFT Test 02/11/25 04:25 Alanine Aminotransferase (ALT) 828 U/L (7-40) H Alkaline Phosphatase 84 U/L (46-116) Aspartate Amino Transferase (AST) 1275 U/L (13-40) H Total Bilirubin 3.6 mg/dL (0.2-1.0) H Assessment/Plan Assessment/Plan 39-year-old male with a known history of dilated cardiomyopathy initially presented to the hospital with the abdominal pain found to have 1. Acute on chronic decompensated congestive heart failure with systolic dysfunction 2. Congenital heart disease with a history of atrioseptal defect 3. Dilated cardiomyopathy 4. RV thrombus currently on Eliquis 5. Schizophrenia with the acute psychotic episodes 6. Constipation 7. Elevated troponin suspect secondary to acute CHF exacerbation 8. Morbid obesity classI -continue Depakote, tele psych-consultation Continue IV diuretics, follow up Cardiology recommendations. Plan discussed with: Other Date of Service: Feb 11, 2025 Billing Provider: YASSINE RABAGO MD Common Visit Codes: [id number] INP/OBS CARE(MOD), NOT BILLABLE YASSINE RABAGO MD Feb 11, 2025 16:14
[2025-02-12] VITALS (7 sets, daily range): BP systolic 83–96; BP diastolic 53–64; PULSE 90–106; RESP 17–18; TEMP 97.6–98; O2SAT 94–100
[2025-02-12 06:01] LABS: Basophils # (auto) 0 10 ^3/uL (0-0.2); Basophils % (auto) 0.4 % (0.0-2.0); Eosinophils # (auto) 0.2 10 ^3/uL (0-0.8); Eosinophils % (auto) 2.3 % (0.0-7.0); Hematocrit 50.1 % (41.0-53.0); Hemoglobin 16.2 g/dL (13.5-17.5); Lymphocytes # (auto) 1.7 10 ^3/uL (0.4-5.4); Lymphocytes % (auto) 18.7 % (10.0-50.0); Mean Corpuscular Hemoglobin 32.3 pg (28.0-32.0); Mean Corpuscular Hgb Conc. 32.3 g/dL (32.0-36.0); Mean Corpuscular Volume 99.9 fL (80.0-100.0); Monocytes # (auto) 0.7 10 ^3/uL (0-1.3); Monocytes % (auto) 7.2 % (0.0-12.0); Neutrophils # (auto) 6.6 10 ^3/uL (1.6-8.6); Neutrophils % (auto) 71.4 % (37.0-80.0); Nucleated Red Blood Cells % 0.3 %; Platelet Count (auto) 156 10^3/uL (140-450); Red Blood Cells 5.02 10^6/uL (4.5-5.90); Red Cell Distribution Width 16.1 % (11.8-14.3); White Blood Cell 9.3 10^3/uL (4.4-10.8)
[2025-02-12 06:14] LABS: Albumin 3.4 g/dL (3.2-4.8); Alkaline Phosphatase 81 U/L (46-116); Anion Gap 11 (5-15); BUN/Creatinine Ratio 30.6 (10.0-20.0); Calcium 8.8 mg/dL (8.7-10.4); Carbon Dioxide 25 mmol/L (20-31); Chloride 103 mmol/L (98-107); Magnesium 2.4 mg/dL (1.6-2.6); Potassium 4.3 mmol/L (3.5-5.1); Sodium 139 mmol/L (136-145)
[2025-02-12 06:21] LABS: Alanine Aminotransferase 532 U/L (7-40); Aspartate Aminotransferase 559 U/L (13-40); Bilirubin, Total 3.5 mg/dL (0.2-1.0); Blood Urea Nitrogen 30 mg/dL (9-23); Glucose 72 mg/dL (74-106); Total Protein 5.6 g/dL (5.7-8.2)
--- NOTE | 2025-02-12 14:48 | ECG ---
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
--- NOTE | 2025-02-12 16:16 | DVHPN2 ---
Subjective Patient has a delusional thoughts and behavior. I have talked to patient 's mom on the phone yesterday who told me that he does have a schizophrenia currently not taking any medications although he was taking Depakote in the past. Today patient is more calm. Tele psych consultation still pending. 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 Medications Current Medications Medications Dose Ordered Sig/Albert Route Start Time Stop Time Status Last Admin Dose Admin Bisacodyl 5 mg DAILY PRN PO 02/09/25 19:00 Polyethylene Glycol 17 gm DAILY PRN PO 02/09/25 19:00 Docusate Sodium 100 mg BID PO 02/09/25 22:00 02/12/25 10:24 100 MG Apixaban 5 mg BID PO 02/09/25 22:00 02/12/25 10:24 5 MG Spironolactone 12.5 mg DAILY PO 02/10/25 10:00 02/12/25 10:24 12.5 MG Metoprolol Succinate 25 mg DAILY PO 02/10/25 10:00 02/10/25 09:54 25 MG Furosemide 40 mg BIDD IV 02/10/25 06:00 02/11/25 05:53 40 MG Empaglifozin 10 mg DAILY PO 02/10/25 10:15 02/12/25 10:29 10 MG Sacubitril/ Valsartan 0.5 tab BID PO 02/10/25 22:00 02/11/25 22:09 0.5 TAB Divalproex Sodium 500 mg BID PO 02/10/25 12:45 02/12/25 10:25 500 MG Haloperidol Lactate 2.5 mg Q8HP PRN IV 02/10/25 13:00 Laboratory Results Laboratory Tests 02/12/25 04:57 Chemistry Test 02/12/25 04:57 Albumin 3.4 g/dL (3.2-4.8) Calcium Level 8.8 mg/dL (8.7-10.4) Magnesium Level 2.4 mg/dL (1.6-2.6) Total Protein 5.6 g/dL (5.7-8.2) L LFT Test 02/12/25 04:57 Alanine Aminotransferase (ALT) 532 U/L (7-40) H Alkaline Phosphatase 81 U/L (46-116) Aspartate Amino Transferase (AST) 559 U/L (13-40) H Total Bilirubin 3.5 mg/dL (0.2-1.0) H Microbiology Microbiology Date/Time Source Procedure Growth Status 02/10/25 21:30 Nose MRSA Screen - Final Complete Assessment/Plan Assessment/Plan 39-year-old male with a known history of dilated cardiomyopathy initially presented to the hospital with the abdominal pain found to have 1. Acute on chronic decompensated congestive heart failure with systolic dysfunction 2. Congenital heart disease with a history of atrioseptal defect 3. Dilated cardiomyopathy 4. RV thrombus currently on Eliquis 5. Schizophrenia with the acute psychotic episodes 6. Constipation 7. Elevated troponin suspect secondary to acute CHF exacerbation 8. Morbid obesity classI -continue Depakote, tele psych-consultation is still pending Continue IV diuretics, follow up Cardiology recommendations. Plan discussed with: Patient Date of Service: Feb 12, 2025 Billing Provider: YASSINE RABAGO MD Common Visit Codes: [id number] INP/OBS CARE(MOD) YASSINE RABAGO MD Feb 12, 2025 16:16
--- NOTE | 2025-02-12 16:59 | DVHINCON2 ---
Date of Service if different f: Feb 12, 2025 Time of Service: 16:39 Consultation ([facility]) Consulting Physician: SATHYA WEBER MD Labs Laboratory Tests Test 02/09/25 13:47 02/09/25 21:25 02/12/25 04:57 B-Type Natriuretic Peptide 3307.17 pg/mL (0-100) Troponin I High Sensitivity 119 ng/L (</=54) White Blood Count 9.3 10^3/uL (4.4-10.8) Red Blood Count 5.02 10^6/uL (4.5-5.90) Hemoglobin 16.2 g/dL (13.5-17.5) Hematocrit 50.1 % (41.0-53.0) Mean Corpuscular Volume 99.9 fL (80.0-100.0) Mean Corpuscular Hemoglobin 32.3 pg (28.0-32.0) Mean Corpuscular Hemoglobin Concent 32.3 g/dL (32.0-36.0) Red Cell Distribution Width 16.1 % (11.8-14.3) Platelet Count 156 10^3/uL (140-450) Mean Platelet Volume 10.5 fL (6.9-10.8) Neutrophils (%) (Auto) 71.4 % (37.0-80.0) Lymphocytes (%) (Auto) 18.7 % (10.0-50.0) Monocytes (%) (Auto) 7.2 % (0.0-12.0) Eosinophils (%) (Auto) 2.3 % (0.0-7.0) Basophils (%) (Auto) 0.4 % (0.0-2.0) Neutrophils # (Auto) 6.6 10 ^3/uL (1.6-8.6) Lymphocytes # (Auto) 1.7 10 ^3/uL (0.4-5.4) Monocytes # (Auto) 0.7 10 ^3/uL (0-1.3) Eosinophils # (Auto) 0.2 10 ^3/uL (0-0.8) Basophils # (Auto) 0 10 ^3/uL (0-0.2) Nucleated Red Blood Cells 0.3 % Sodium Level 139 mmol/L (136-145) Potassium Level 4.3 mmol/L (3.5-5.1) Chloride Level 103 mmol/L (98-107) Carbon Dioxide Level 25 mmol/L (20-31) Anion Gap 11 (5-15) Blood Urea Nitrogen 30 mg/dL (9-23) Creatinine 0.98 mg/dL (0.700-1.30) Glomerular Filtration Rate Calc 102 mL/min (>90) BUN/Creatinine Ratio 30.6 (10.0-20.0) Serum Glucose 72 mg/dL (74-106) Calcium Level 8.8 mg/dL (8.7-10.4) Magnesium Level 2.4 mg/dL (1.6-2.6) Total Bilirubin 3.5 mg/dL (0.2-1.0) Aspartate Amino Transf (AST/SGOT) 559 U/L (13-40) Alanine Aminotransferase (ALT/SGPT) 532 U/L (7-40) Alkaline Phosphatase 81 U/L (46-116) Total Protein 5.6 g/dL (5.7-8.2) Albumin 3.4 g/dL (3.2-4.8) Microbiology Date/Time Source Procedure Growth Status 02/10/25 21:30 Nose MRSA Screen - Final Complete Appearance: Stated age Psychomotor activity: WNL Behavioral: Cooperative Eye contact: Appropriate Speech: WNL Affect: Appropriate, Mood Congruent Mood: Euthymic Thought processes: Linear/Goal-directed Thought content: Hallucinations Suicidal ideations: Absent Homicidal ideations: Absent Orientation: Person, Place, Time, Situation Memory intact: Recent Intellect: Average Abstractability: WNL Concentration: Adequate Attention: Adequate Judgement: WNL Insight: Good Vitals Vital Signs Date Time Temp Pulse Resp B/P (MAP) Pulse Ox O2 Delivery O2 Flow Rate FiO2 02/12/25 13:00 97.7 102 18 94/61 (72) 94 97.7 02/12/25 08:00 Room Air* 0 21 Current medications Current Medications Medications Dose Ordered Sig/Albert Route Start Time Stop Time Status Last Admin Dose Admin Bisacodyl 5 mg DAILY PRN PO 02/09/25 19:00 Polyethylene Glycol 17 gm DAILY PRN PO 02/09/25 19:00 Docusate Sodium 100 mg BID PO 02/09/25 22:00 02/12/25 10:24 100 MG Apixaban 5 mg BID PO 02/09/25 22:00 02/12/25 10:24 5 MG Spironolactone 12.5 mg DAILY PO 02/10/25 10:00 02/12/25 10:24 12.5 MG Metoprolol Succinate 25 mg DAILY PO 02/10/25 10:00 02/10/25 09:54 25 MG Furosemide 40 mg BIDD IV 02/10/25 06:00 02/11/25 05:53 40 MG Empaglifozin 10 mg DAILY PO 02/10/25 10:15 02/12/25 10:29 10 MG Sacubitril/ Valsartan 0.5 tab BID PO 02/10/25 22:00 02/11/25 22:09 0.5 TAB Divalproex Sodium 500 mg BID PO 02/10/25 12:45 02/12/25 10:25 500 MG Haloperidol Lactate 2.5 mg Q8HP PRN IV 02/10/25 13:00 Treatment plan discussed: With staff Medication adjusted: Yes Labs ordered: No Psychotherapy provided: No Type: Voluntary History of Present Illness Reason for Consult : psychiatric evaluation PER H&P: 39M presents to the ER w/ prior Hx of cholecystectomy which may be associated to the c/c of ABD pain. Pt report on having N/V/D, w/ epigastric pain for the past 3 days. PMHx of Schizophrenia, Developmental Delay, CHF, and Lung Failure. SHx of Skin Graft on left leg. Denies chills, fever, SOB, CP or no other associated symptoms, modifiers, recent injuries or sick contacts at this time. PSYCHIATRIST HPI: The patient was seen and evaluated at [facility] via telepsychiatry platform. 39 yr old male admitted 02/09 for biventricular end stage heart failure. He is reported to have schizophrenia. He reported he hears someone calling him at times. It last happened a few days ago. He stated he was on medications (Depakote and maybe Haldol) prior to 2019 and had also been in therapy, but he noted he has been off medications since the pandemic (2019). He stated he is awaiting possible heart surgery or heart transplant for his end stage heart failure. He denied having visual hallucinations and homicidal or suicidal ideation. Past Psychiatric History : Diagnosed with schizophrenia. Several hospitalizations. No past suicide attempts. Past Medical History : Biventricular end stage heart failure, sees [facility], DVTs No current medications for schizophrenia. Past use of depakote and haldol. Substance use: Denied use of alcohol and other substances. Social History : Lives in [place] with parents. On disability. Graduated HS. Diagnosis: SCHIZOPHRENIA Formulation: This 39 yr old male appears to suffer from schizophrenia and may benefit from starting an antipsychotic. Abilify tends to have the lowest risk for QTc prolongation and cardiotoxicity, so I recommend starting Abilify 5mg daily. This may need to be titrated up to the point where the auditory hallucinations are decreased. Plan: 1. The patient is a low risk for harm and is psychologically cleared for discharge. 2. Legal-Voluntary status. 3. Medications: Recommend starting abilify 5mg daily. 4. Case discussed with ED RN, Lilo. 5. Please recontact psychiatry for further follow up or reevaluation. I would recommend reconsulting on 02/14 to evaluate effectiveness of abilify if he is still inpatient. Assessment/Diagnosis/Plan Reviewed: Labs, Medications, Previous Orders, Radiology SATHYA WEBER MD Feb 12, 2025 16:42
[2025-02-13 01:13] VITALS: BP 98/57; PULSE 102; RESP 18; TEMP 97.6; O2SAT 95
[2025-02-13 05:33] VITALS: BP 99/51; PULSE 97; RESP 18; TEMP 97.3; O2SAT 96
[2025-02-13 07:07] LABS: Albumin 3.3 g/dL (3.2-4.8)
[2025-02-13 07:11] LABS: Anion Gap 10 (5-15)
[2025-02-13 07:12] LABS: Aspartate Aminotransferase 399 U/L (13-40); Bilirubin, Total 3.4 mg/dL (0.2-1.0); Calcium 8.8 mg/dL (8.7-10.4); Carbon Dioxide 28 mmol/L (20-31); Chloride 103 mmol/L (98-107); Potassium 4.3 mmol/L (3.5-5.1); Sodium 141 mmol/L (136-145); Total Protein 5.5 g/dL (5.7-8.2)
[2025-02-13 07:13] LABS: Basophils # (auto) 0 10 ^3/uL (0-0.2); Basophils % (auto) 0.5 % (0.0-2.0); Eosinophils # (auto) 0.2 10 ^3/uL (0-0.8); Eosinophils % (auto) 2.2 % (0.0-7.0); Hematocrit 45.9 % (41.0-53.0); Hemoglobin 15.4 g/dL (13.5-17.5); Lymphocytes # (auto) 1.4 10 ^3/uL (0.4-5.4); Lymphocytes % (auto) 18.1 % (10.0-50.0); Mean Corpuscular Hemoglobin 32.9 pg (28.0-32.0); Mean Corpuscular Hgb Conc. 33.4 g/dL (32.0-36.0); Mean Corpuscular Volume 98.4 fL (80.0-100.0); Monocytes # (auto) 0.5 10 ^3/uL (0-1.3); Monocytes % (auto) 6.9 % (0.0-12.0); Neutrophils # (auto) 5.6 10 ^3/uL (1.6-8.6); Neutrophils % (auto) 72.3 % (37.0-80.0); Nucleated Red Blood Cells % 0.2 %; Platelet Count (auto) 149 10^3/uL (140-450); Red Blood Cells 4.67 10^6/uL (4.5-5.90); Red Cell Distribution Width 16.2 % (11.8-14.3); White Blood Cell 7.7 10^3/uL (4.4-10.8)
[2025-02-13 07:17] LABS: BUN/Creatinine Ratio 23.5 (10.0-20.0)
[2025-02-13 07:22] LABS: Alanine Aminotransferase 457 U/L (7-40); Alkaline Phosphatase 77 U/L (46-116); Blood Urea Nitrogen 23 mg/dL (9-23); Glucose 78 mg/dL (74-106); Magnesium 2.4 mg/dL (1.6-2.6)
[2025-02-13 08:00] VITALS: PULSE 101; PULSE 72; RESP 18; O2SAT 97
[2025-02-13 09:00] VITALS: BP 94/59; PULSE 72; RESP 19; TEMP 98.1; O2SAT 96
[2025-02-13] MEDS ORDERED: ARIP2TAB PO (17:14)
[2025-02-13 17:25] VITALS: BP 96/66; PULSE 70; RESP 18; TEMP 97.8; O2SAT 96
--- NOTE | 2025-02-13 18:25 | DVHDS2 ---
Discharge Summary Date of Admission Feb 09, 2025 at 18:57 Date of Discharge: Feb 13, 2025 Labs/Diagnostic Data: Laboratory Results Test 02/13/25 06:22 02/09/25 21:25 02/09/25 13:47 White Blood Count 7.7 10^3/uL (4.4-10.8) Red Blood Count 4.67 10^6/uL (4.5-5.90) Hemoglobin 15.4 g/dL (13.5-17.5) Hematocrit 45.9 % (41.0-53.0) Mean Corpuscular Volume 98.4 fL (80.0-100.0) Mean Corpuscular Hemoglobin 32.9 pg (28.0-32.0) Mean Corpuscular Hemoglobin Concent 33.4 g/dL (32.0-36.0) Red Cell Distribution Width 16.2 % (11.8-14.3) Platelet Count 149 10^3/uL (140-450) Mean Platelet Volume 10.5 fL (6.9-10.8) Neutrophils (%) (Auto) 72.3 % (37.0-80.0) Lymphocytes (%) (Auto) 18.1 % (10.0-50.0) Monocytes (%) (Auto) 6.9 % (0.0-12.0) Eosinophils (%) (Auto) 2.2 % (0.0-7.0) Basophils (%) (Auto) 0.5 % (0.0-2.0) Neutrophils # (Auto) 5.6 10 ^3/uL (1.6-8.6) Lymphocytes # (Auto) 1.4 10 ^3/uL (0.4-5.4) Monocytes # (Auto) 0.5 10 ^3/uL (0-1.3) Eosinophils # (Auto) 0.2 10 ^3/uL (0-0.8) Basophils # (Auto) 0 10 ^3/uL (0-0.2) Nucleated Red Blood Cells 0.2 % Sodium Level 141 mmol/L (136-145) Potassium Level 4.3 mmol/L (3.5-5.1) Chloride Level 103 mmol/L (98-107) Carbon Dioxide Level 28 mmol/L (20-31) Anion Gap 10 (5-15) Blood Urea Nitrogen 23 mg/dL (9-23) Creatinine 0.98 mg/dL (0.700-1.30) Glomerular Filtration Rate Calc 102 mL/min (>90) BUN/Creatinine Ratio 23.5 (10.0-20.0) Serum Glucose 78 mg/dL (74-106) Calcium Level 8.8 mg/dL (8.7-10.4) Magnesium Level 2.4 mg/dL (1.6-2.6) Total Bilirubin 3.4 mg/dL (0.2-1.0) Aspartate Amino Transferase (AST) 399 U/L (13-40) Alanine Aminotransferase (ALT) 457 U/L (7-40) Alkaline Phosphatase 77 U/L (46-116) Total Protein 5.5 g/dL (5.7-8.2) Albumin 3.3 g/dL (3.2-4.8) Troponin I High Sensitivity 119 ng/L (</=54) B-Type Natriuretic Peptide 3307.17 pg/mL (0-100) Other Laboratory Tests 02/13/25 06:22 Brief Hx & Hospital Course: 39-year-old male with a known history of dilated cardiomyopathy initially presented to the hospital with the abdominal pain found to have acute on chronic decompensated congestive heart failure with systolic dysfunction with the EF of 5%. Patient was have congenital heart disease with a history of atrial septal defect. 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 Patient was hospital course was eventful for delusional episodes with a previous history of schizophrenia. Eventually tele psych was consulted who recommended Abilify. Patient was being discharged under stable condition. Continue IV diuretics, follow up Cardiology recommendations. Condition at Discharge: Stable Final Diagnosis/Problems List 39-year-old male with a known history of dilated cardiomyopathy initially presented to the hospital with the abdominal pain found to have 1. Acute on chronic decompensated congestive heart failure with systolic dysfunction 2. Congenital heart disease with a history of atrioseptal defect 3. Dilated cardiomyopathy 4. RV thrombus currently on Eliquis 5. Schizophrenia with the acute psychotic episodes 6. Constipation 7. Elevated troponin suspect secondary to acute CHF exacerbation 8. Morbid obesity classI -continue Depakote, tele psych-consultation is still pending Continue IV diuretics, follow up Cardiology recommendations. Discharge Disposition: Home SNF Discharge Will this Physician continue t: No Discharge Instruct/Medications Diet: Cardiac 2g Na,low cholest Activity: No Restrictions, As Tolerated Follow Up/Referral: Follow up with the PCP in 1-2 weeks Follow up with tele psych in 1-2 weeks Medications: As reconciled, add Abilify Discharge Statement: "Patient was advised to return to the ER or call 911 if any headaches, dizziness, shortness of breath, chest pain, abdominal pain, bleeding, fevers, or worsening of medical condition. Patient was counseled about treatment plan, medications, possible side effects, patientverbalized understanding. All questions were answered to the best of my ability. This discharge took greater then 30 minutes in planning, reviewing documentation, counseling the patient, and discussing with other team members." ASSESSMENT ASSESSMENT Assessment 39-year-old male with a known history of dilated cardiomyopathy initially presented to the hospital with the abdominal pain found to have 1. Acute on chronic decompensated congestive heart failure with systolic dysfunction 2. Congenital heart disease with a history of atrioseptal defect 3. Dilated cardiomyopathy 4. RV thrombus currently on Eliquis 5. Schizophrenia with the acute psychotic episodes 6. Constipation 7. Elevated troponin suspect secondary to acute CHF exacerbation 8. Morbid obesity classI -continue Depakote, tele psych-consultation is still pending Continue IV diuretics, follow up Cardiology recommendations. Date of Service: Feb 13, 2025 Billing Provider: YASSINE RABAGO MD Common Visit Codes: 52308-XHX/OBS DISCH DAY >30min YASSINE RABAGO MD Feb 13, 2025 18:25
--- NOTE | 2025-02-15 11:20 | ECG ---
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
== END 2025-02-13 19:50 | disposition home or self-care (01) | DRG 194 ==
LOC: ER 12:24 → OVERFLOW 18:57 → TELE-WESTW 02-10 16:20
PROVIDERS: ADMIT Internal Medicine; ATTEND Internal Medicine
DX: I50.23 Acute on chronic systolic (congestive) heart failure (principal); N17.0 Acute kidney failure with tubular necrosis; I21.A1 Myocardial infarction type 2; I47.20 Ventricular tachycardia, unspecified; R18.8 Other ascites; I42.0 Dilated cardiomyopathy; K59.00 Constipation, unspecified; E66.813 Obesity, class 3; I08.1 Rheumatic disorders of both mitral and tricuspid valves; I50.84 End stage heart failure; F20.9 Schizophrenia, unspecified; F41.9 Anxiety disorder, unspecified; Z68.32 Body mass index [BMI] 32.0-32.9, adult; Z90.49 Acquired absence of other specified parts of digestive tract; Z79.01 Long term (current) use of anticoagulants; Z79.899 Other long term (current) drug therapy; Z82.49 Family history of ischemic heart disease and other diseases of the circulatory system; Z83.3 Family history of diabetes mellitus; Z86.711 Personal history of pulmonary embolism; K52.89 Other specified noninfective gastroenteritis and colitis
CPT/HCPCS: 36415; 71045; 74176; 80048; 80053; 83735; 83880; 84484; 85025; 87081; 93005; 99291; G0378

== ENCOUNTER 2025-02-28 11:04 | Inpatient (IN) | payer OTHER ==
[~2025-02-28] VITALS: Ht 167.6 cm; Wt 89.2 kg
[~2025-02-28 11:04] MED LIST changes: +ARIP2TAB PO
--- NOTE | 2025-02-28 11:19 | ECG ---
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
--- NOTE | 2025-02-28 12:01 | ED.PDOC ---
History of Present Illness HPI Comments 39-year-old male with a history of schizophrenia and CHF brought in by brother for evaluation of chest pain and upper abdominal pain since this morning. Patient was also reported to be disoriented and paranoid. Patient states he is having pain in the mid chest area and upper abdominal area. He is a difficult historian, and does not answer when asked if he has nausea, vomiting, diarrhea, urinary symptoms, shortness of breath or other symptoms. Chief Complaint: Chest Pain Time Seen by MD: 11:30 Primary Care Provider: ZION Jewell Notes: Nurses Notes, Medications, Allergies Allergies: Coded Allergies: NO KNOWN ALLERGIES (Unverified , 04/02/19) Home Meds Active Scripts Aripiprazole (Abilify) 2 Mg Tab, 2.5 TAB PO DAILY for 30 Days, #75 TAB 2 Refills Prov:YASSINE RABAGO MD 02/13/25 Levofloxacin Hemihydrate (LEVOFLOXACIN) 500 Mg Tab, 1 TAB PO DAILY for 7 Days, #7 TAB Prov:INNA COREA MD 02/02/25 Reported Medications Apixaban Base (ELIQUIS) 5 Mg Tab, 1 TAB PO BID for 83 Days, #180 02/01/25 Metoprolol Succinate (Metoprolol Succinate Er) 25 Mg Tab, 1 TAB PO DAILY 01/31/25 Bumetanide (Bumetanide) 2 Mg Tab, 0.5 TAB PO BID 01/31/25 Dapagliflozin Propanediol (Farxiga) 10 Mg Tab, 1 TAB PO DAILY 01/31/25 Spironolactone (Spironolactone) 25 Mg Tab, 0.5 TAB PO DAILY 01/31/25 Information Source: Patient, Relative (Child) Mode of Arrival: Ambulatory Severity: Moderate, None Timing: Hours Duration: Since onset, Hours Prehospital treatment: None Past Medical History PAST MEDICAL HISTORY: CHF, Schizophrenia Past Medical History (Other): developmental Delay, respiratory failure Surgical History: Cholecystectomy Surgical History (Other): Skin Graft Left leg Family History Family History: Reviewed,noncontributory to illness Social History Smoker: Non-Smoker Alcohol: Denies ETOH Use Drugs: Denies Drug Use Lives In: Home Constitutional: denies: chills, diaphoresis, fatigue, fever, malaise, sweats, weakness, others EENTM: denies: blurred vision, double vision, ear bleeding, ear discharge, ear drainage, ear pain, ear ringing, eye pain, eye redness, hearing loss, mouth pain, mouth swelling, nasal discharge, nose bleeding, nose congestion, nose pain, photophobia, tearing, throat pain, throat swelling, voice changes, others Respiratory: denies: cough, hemoptysis, orthopnea, SOB at rest, shortness of breath, SOB with excertion, stridor, wheezing, others Cardiovascular: reports: chest pain; denies: dizzy spells, diaphoresis, Dyspnea on exertion, edema, irregular heart beat, left arm pain, lightheadedness, palpitations, PND, syncope, others Gastrointestinal: reports: abdominal pain; denies: abdomen distended, blood streaked bowels, constipated, diarrhea, dysphagia, difficulty swallowing, hematemesis, melena, nausea, poor appetite, poor fluid intake, rectal bleeding, rectal pain, vomiting, others Genitourinary: denies: burning, dysuria, flank pain, frequency, hematuria, incontinence, penile discharge, penile sore, pain, testicle pain, testicle swelling, urgency, others Neurological: reports: speech problems; denies: dizziness, fainting, headache, left sided numbness, left sided weakness, numbness, paresthesia, pre-existing deficit, right sided numbness, right sided weakness, seizure, tingling, tremors, weakness, others Musculoskeletal: reports: others (Hip pain); denies: back pain, gout, joint pain, joint swelling, muscle pain, muscle stiffness, neck pain Integumetry: denies: bruises, change in color, change in hair/nails, dryness, laceration, lesions, lumps, rash, wounds, others Allergic/Immunocompromised: denies: Difficulty Healing, Frequent Infections, Hives, Itching, others Hematologic/Lymphatic: denies: anemia, blood clots, easy bleeding, easy bruising, swollen glands, others Endocrine: denies: excessive hunger, excessive sweating, excessive thirst, excessive urination, flushing, intolerance to cold, intolerance to heat, unexplained weight gain, unexplained weight loss, others Psychiatric: denies: anxiety, bipolar disorder, depression, hopeless, panic disorder, schizophrenia, sleepless, suicidal, others All Other Systems: Reviewed and Negative Physical Exam General Appearance: Mild Distress HEENT: Other (Pupils and face symmetric. Moist mucous membranes.) Neck: Full Range of Motion, Normal Inspection Respiratory: Lungs Clear, No Accessory Muscle Use, No Respiratory Distress, Normal Breath Sounds Cardiovascular: No Edema, No JVD, Tachycardia Breast Exam: Deferred Gastrointestinal: Epigastric, LUQ, RUQ, Soft, Tenderness Genitalia: Deferred Pelvic: Deferred Rectal: Deferred Extremities: Normal inspection, Normal range of motion, Non-tender, No pedal edema Neurologic: Alert (Oriented times 3), Normal Affect, Other (Anxious, paranoid. Ambulatory.) Cerebellar Function: NOT DONE Reflexes: NOT DONE Skin: Dry, Normal Color, Warm Lymphatic: NOT DONE Was a procedure done? Was a procedure done?: No EKG EKG : Comments Sinus tach, rate 118, normal MD and QRS intervals, QTC 460, normal axis, possible old anteroseptal or lateral infarct, inferior T-wave inversion with ST depression Differential Dx Considerations may include: ACS, TX, anxiety, CHF, gastritis, ulcer disease, pancreatitis, biliary tract disease, among others X-Ray, Labs, Meds, VS Vital Signs Date Time Temp Pulse Resp B/P (MAP) Pulse Ox O2 Delivery O2 Flow Rate FiO2 02/28/25 20:22 77 15 97 Room Air* 0 21 02/28/25 20:08 97.7 98 14 89/64 (72) 100 97.7 02/28/25 16:28 97.7 98 12 89/64 (72) 100 97.7 02/28/25 14:13 71 16 97 Room Air* 0 21 02/28/25 11:33 97.7 114 24 139/86 (103) 98 97.7 02/28/25 11:09 118 Lab Test 02/28/25 12:10 02/28/25 11:14 02/28/25 11:09 Range/Units Troponin I High Sensitivity 39 41 </=54 ng/L White Blood Count 9.8 4.4-10.8 10^3/uL Red Blood Count 5.08 4.5-5.90 10^6/uL Hemoglobin 16.7 13.5-17.5 g/dL Hematocrit 49.6 41.0-53.0 % Mean Corpuscular Volume 97.5 80.0-100.0 fL Mean Corpuscular Hemoglobin 32.8 H 28.0-32.0 pg Mean Corpuscular Hemoglobin Concent 33.7 32.0-36.0 g/dL Red Cell Distribution Width 16.4 H 11.8-14.3 % Platelet Count 229 140-450 10^3/uL Mean Platelet Volume 11.1 H 6.9-10.8 fL Neutrophils (%) (Auto) 70.3 37.0-80.0 % Lymphocytes (%) (Auto) 20.6 10.0-50.0 % Monocytes (%) (Auto) 8.5 0.0-12.0 % Eosinophils (%) (Auto) 0.2 0.0-7.0 % Basophils (%) (Auto) 0.4 0.0-2.0 % Neutrophils # (Auto) 6.9 1.6-8.6 10 ^3/uL Lymphocytes # (Auto) 2.0 0.4-5.4 10 ^3/uL Monocytes # (Auto) 0.8 0-1.3 10 ^3/uL Eosinophils # (Auto) 0 0-0.8 10 ^3/uL Basophils # (Auto) 0 0-0.2 10 ^3/uL Nucleated Red Blood Cells 0.4 % Sodium Level 132 L 136-145 mmol/L Potassium Level 4.1 3.5-5.1 mmol/L Chloride Level 99 98-107 mmol/L Carbon Dioxide Level 18 L 20-31 mmol/L Anion Gap 15 5-15 Blood Urea Nitrogen 33 H 9-23 mg/dL Creatinine 1.37 H 0.700-1.30 mg/dL Glomerular Filtration Rate Calc 68 >90 mL/min BUN/Creatinine Ratio 24.1 H 10.0-20.0 Serum Glucose 123 H 74-106 mg/dL Calcium Level 9.8 8.7-10.4 mg/dL Total Bilirubin 4.7 H 0.2-1.0 mg/dL Aspartate Amino Transferase (AST) 113 H 13-40 U/L Alanine Aminotransferase (ALT) 100 H 7-40 U/L Alkaline Phosphatase 109 46-116 U/L B-Type Natriuretic Peptide 4778.61 0-100 pg/mL Total Protein 7.1 5.7-8.2 g/dL Albumin 4.2 3.2-4.8 g/dL Lipase 82 H 12-53 U/L Plasma/Serum Blood Alcohol 3.2 <10 mg/dL POC Glucose 125 H 70-106 mg/dl Current Medications Medications (Trade) Dose Ordered Sig/Albert Route Start Time Stop Time Status Last Admin Lorazepam (Ativan Inj) 1 mg ONCE ONCE IM 02/28/25 11:45 02/28/25 11:46 DC 02/28/25 13:33 Olanzapine (ZyPREXA Tablet) 20 mg ONCE ONCE PO 02/28/25 11:45 02/28/25 11:46 DC 02/28/25 13:32 Lidocaine HCl (Xylocaine 2% Viscous) 10 ml ONCE ONCE PO 02/28/25 12:15 02/28/25 12:16 DC 02/28/25 13:32 Belladonna Alkaloids/ Phenobarbital ( Elixir) 10 ml ONCE ONCE PO 02/28/25 12:15 02/28/25 12:16 DC 02/28/25 13:32 Al Hydrox/Mg Hydrox/Simethicone (Maalox Plus) 30 ml ONCE ONCE PO 02/28/25 12:15 02/28/25 12:16 DC 02/28/25 13:32 PROCEDURE(s): CXRP - CHEST PORTABLE REASON: cp ORDER NUMBER(s): [id number], ACCESSION NUMBER(s): [id number] EXAM: XY CHEST PORTABLE Indication: cp Technique: Single frontal view of the chest was obtained Comparison: XY CHEST PORTABLE on DOS: 02/09/25, XY CHEST PORTABLE on DOS: 01/30/25, XY CHEST XRAY 1 VIEW on DOS: 09/06/24, XY CHEST PORTABLE on DOS: 09/05/24, XY CHEST PORTABLE on DOS: 09/04/24 FINDINGS: Lines and Tubes: None Lungs: No focal consolidation. Pleura: No effusion. No pneumothorax. Cardiomediastinal contours: Cardiomegaly. Bones: No acute osseous abnormality. IMPRESSION: No acute cardiopulmonary disease. X-Ray, Labs, Meds, VS Comment 39-year-old male with a history of schizophrenia and CHF brought in by brother for evaluation of chest pain since this morning Vitals remarkable for heart rate 118 Exam remarkable for tachycardia and upper abdominal tenderness to palpation Rhythm strip independently interpreted by me: Sinus tach, rate 118, no ectopy. Chest x-ray no acute disease Right upper quadrant ultrasound pending CBC unremarkable, metabolic panel remarkable for sodium 132, CO2 18, BUN 33, creatinine 1.37, AST 113, ALT 100, lipase 82, BNP 4778.61, troponin negative x2 Patient treated with the following in the ED: Ativan 1 mg IM, Zyprexa 20 mg p.o., viscous lidocaine 10 mL, 10 mL, Maalox 30 mL p.o.. On re-evaluation, patient is still having pain. Morphine 4 mg IV and Zofran 4 mg IV were ordered. Plan is to admit the patient for Cardiology and GI evaluation. Time of 1ST Reevaluation: 12:00 Reevaluation 1ST: Unchanged Patient Education/Counseling: Diagnosis, Treatment, Prognosis Family Education/Counseling: No Family Present Departure 1 Departure Time of Disposition: 18:37 Impression: Primary Impression: Chest pain with high risk for cardiac etiology Additional Impression: Acute pancreatitis Qualified Codes: K85.90 - Acute pancreatitis without necrosis or infection, unspecified Disposition: 09 ADMITTED INPATIENT Admit to: [facility] Condition: Guarded Critical Care Note Critical Care Time?: No Stability Stability form required: No Heart Score Heart Score: Heart Score Response (Comments) Value History Moderate Suspicious [address]-Deviation 2 Age <45 0 Risk Factors 1 or 2 risk factors 1 Troponin Normal limit 0 Total 4 I personally scribed for CRYSTAL RAO MD ([email or web address] on 02/28/25 at 12:01. Electronically submitted by Michael Farmer ([email or web address]). I personally scribed for CRYSTAL RAO MD ([email or web address]) on 02/28/25 at 17:31. Electronically submitted by Michael Farmer ([employer]). CRYSTAL RAO MD Feb 28, 2025 12:01
[2025-02-28 12:09] LABS: Basophils # (auto) 0 10 ^3/uL (0-0.2); Basophils % (auto) 0.4 % (0.0-2.0); Eosinophils # (auto) 0 10 ^3/uL (0-0.8); Eosinophils % (auto) 0.2 % (0.0-7.0); Hematocrit 49.6 % (41.0-53.0); Hemoglobin 16.7 g/dL (13.5-17.5); Lymphocytes % (auto) 20.6 % (10.0-50.0); Mean Corpuscular Hemoglobin 32.8 pg (28.0-32.0); Mean Corpuscular Hgb Conc. 33.7 g/dL (32.0-36.0); Mean Corpuscular Volume 97.5 fL (80.0-100.0); Monocytes # (auto) 0.8 10 ^3/uL (0-1.3); Monocytes % (auto) 8.5 % (0.0-12.0); Neutrophils # (auto) 6.9 10 ^3/uL (1.6-8.6); Neutrophils % (auto) 70.3 % (37.0-80.0); Nucleated Red Blood Cells % 0.4 %; Platelet Count (auto) 229 10^3/uL (140-450); Red Blood Cells 5.08 10^6/uL (4.5-5.90); Red Cell Distribution Width 16.4 % (11.8-14.3); White Blood Cell 9.8 10^3/uL (4.4-10.8)
--- NOTE | 2025-02-28 12:12 | DVH ---
EXAM: XY CHEST PORTABLE Indication: cp Technique: Single frontal view of the chest was obtained Comparison: XY CHEST PORTABLE on DOS: 02/09/25, XY CHEST PORTABLE on DOS: 01/30/25, XY CHEST XRAY 1 VIEW on DOS: 09/06/24, XY CHEST PORTABLE on DOS: 09/05/24, XY CHEST PORTABLE on DOS: 09/04/24 FINDINGS: Lines and Tubes: None Lungs: No focal consolidation. Pleura: No effusion. No pneumothorax. Cardiomediastinal contours: Cardiomegaly. Bones: No acute osseous abnormality. IMPRESSION: No acute cardiopulmonary disease.
[2025-02-28 12:25] LABS: Albumin 4.2 g/dL (3.2-4.8); Alkaline Phosphatase 109 U/L (46-116); Anion Gap 15 (5-15); BUN/Creatinine Ratio 24.1 (10.0-20.0); Blood Alcohol 3.2 mg/dL (<10); Calcium 9.8 mg/dL (8.7-10.4); Chloride 99 mmol/L (98-107); Potassium 4.1 mmol/L (3.5-5.1); Total Protein 7.1 g/dL (5.7-8.2)
[2025-02-28 12:26] LABS: Alanine Aminotransferase 100 U/L (7-40); Aspartate Aminotransferase 113 U/L (13-40); Bilirubin, Total 4.7 mg/dL (0.2-1.0); Blood Urea Nitrogen 33 mg/dL (9-23); Carbon Dioxide 18 mmol/L (20-31); Glucose 123 mg/dL (74-106); Sodium 132 mmol/L (136-145)
[2025-02-28 12:43] LABS: Lipase 82 U/L (12-53)
[2025-02-28] MEDS: MAALOX PLUS or MAALOX 30 ML PO ONE (13:32)
[2025-02-28] MEDS: DONNATAL 5ml ORAL Elix (BELLADONNA ALK-PHENOBARB) PO ONE (13:32)
[2025-02-28] MEDS: OLANZapine 5 MG TAB PO ONE (13:32)
[2025-02-28] MEDS: LIDOCAINE VISCOUS 2% 15ML UD PO ONE (13:32)
[2025-02-28] MEDS: LORazepam 2MG/ML-1ML VIAL IM ONE (13:33)
[2025-02-28 14:13] VITALS: PULSE 71; RESP 16; O2SAT 97
--- NOTE | 2025-02-28 19:15 | DVH ---
INDICATION: RUQ r/o GS pancreatitis TECHNIQUE: Multiple real-time sonographic images were obtained of the right upper quadrant. COMPARISON: None FINDINGS: The liver demonstrates homogeneous echotexture without focal mass lesions. The liver measu res 14.3 cm. There is no intrahepatic or extrahepatic ductal dilatation. The common duct measures 0.3 cm. Status post cholecystectomy. The right kidney measures 10 cm. The right kidney is normal in contour, size, and shape. The echoge nicity is normal. There is no hydronephrosis. The pancreas is not well visualized due to overlying bowel gas. Moderate ascites seen in all 4 quadrants. IMPRESSION: No acute findings identified. Moderate ascites. Status post cholecystectomy.
[2025-02-28 20:22] VITALS: PULSE 77; RESP 15; O2SAT 97
--- NOTE | 2025-02-28 22:29 | DVHHPRES ---
History of Present Illness Resident Creating Document: DINO ASHRAF RESIDENT History of Present Illness Mr Palma is a 39-year-old male with a history of febrile seizures as a kid, congestive heart failure-LVEF 5%, congenital heart disease with atrial septal defect-never repaired, dilated/biventricular cardiomyopathy, right ventricular thrombus diagnosed 01/31/2025 not on Eliquis, mitral/pulmonary/tricuspid regurgitation, history of pulmonary embolus, NSVT, schizophrenia on Abilify, lap cholecystectomy 2018 who presents to the ER with a chief complaint of at auditory hallucinations, and chest pain. Per patient's mother, patient is not sleeping for the past 3 days and has not been eating for similar duration. Patient is experiencing auditory hallucinations he thinks everybody is trying to hurt him and they will get him. He reports that he has no appetite and his tummy is full. Patient also reports left-sided chest pain, tightness, intermittent, no radiati on, for the past month. Radioulnar shortness of breaths, palpitations, nausea, vomiting, diaphoresis. He is on a transplant list and follows [facility], next appointment is 03/05/2025 Patient was recently seen in this facility on 02/13/2025 for congestive heart failure exacerbation and a right ventricular thrombus. He discontinued Eliquis as he did not get any refills. Patient also had a zoll's LifeVest which he returned/lost. For his atrial septal defect, patient's mother was told that it is going to repair itself has a kid by the personnel research scientist. Past medical/surgical history: febrile seizures as a kid, congestive heart failure-LVEF 5%, congenital heart disease with atrial septal defect-never repaired, dilated/biventricular cardiomyopathy, right ventricular thrombus diagnosed 01/31/2025 not on Eliquis, mitral/pulmonary/tricuspid regurgitation, history of pulmonary embolus, NSVT, schizophrenia on Abilify, lap cholecystectomy 2018 Family history: Sudden cardiac in uncle, father of OR at the age of 46, pacemaker placement in cousins with the young age Home medications: Spironolactone, Bumex, Farxiga, metoprolol, Abilify. Patient is not currently taking any anticoagulant PCP: Dr. Donald. Does not follow psychiatrist Patient seen and examined in the ER. Patient has tired and wants to sleep. Has not slept in 3 days. Has bilateral crackles and lower extremity edema. Family History: CAD Smoke: No ALCOHOL: none Drugs: None Lives: with Family Review of Systems Cardiovascular: Chest Pain, Edema Other Lack of sleep, lack of appetite, auditory hallucination Allergies: Coded Allergies: NO KNOWN ALLERGIES (Unverified , 04/02/19) Exam Vital Signs Vital Signs Date Time Temp Pulse Resp B/P (MAP) Pulse Ox O2 Delivery O2 Flow Rate FiO2 02/28/25 20:22 77 15 97 Room Air* 0 21 02/28/25 20:08 97.7 89/64 (72) 97.7 Exam Young male patient, sitting in the chair in ER General: Obese, afebrile, palor, mucosae are moist Cardiovascular: Regular S1 , fixed split S2. No JVD elevation. Pedal edema pitting bilaterally Respiratory: On room air. Bilateral basilar crackles heard on auscultation Abdomen: Soft, nontender, distended, hyperactive bowel sounds, no rebound tenderness, no organomegaly, no masses Genitourinary: Deferred MSK/skin: Mobilizes 4 limbs. Skin is dry and warm Neurological: No motor, no sensitive deficits, normal speech. Pupils are isocoric and reactive. Psych/Mental Status: A/Ox3 Labs/Xrays Labs Test 02/28/25 12:10 02/28/25 11:14 02/28/25 11:09 Range/Units Troponin I High Sensitivity 39 </=54 ng/L White Blood Count 9.8 4.4-10.8 10^3/uL Red Blood Count 5.08 4.5-5.90 10^6/uL Hemoglobin 16.7 13.5-17.5 g/dL Hematocrit 49.6 41.0-53.0 % Mean Corpuscular Volume 97.5 80.0-100.0 fL Mean Corpuscular Hemoglobin 32.8 H 28.0-32.0 pg Mean Corpuscular Hemoglobin Concent 33.7 32.0-36.0 g/dL Red Cell Distribution Width 16.4 H 11.8-14.3 % Platelet Count 229 140-450 10^3/uL Mean Platelet Volume 11.1 H 6.9-10.8 fL Neutrophils (%) (Auto) 70.3 37.0-80.0 % Lymphocytes (%) (Auto) 20.6 10.0-50.0 % Monocytes (%) (Auto) 8.5 0.0-12.0 % Eosinophils (%) (Auto) 0.2 0.0-7.0 % Basophils (%) (Auto) 0.4 0.0-2.0 % Neutrophils # (Auto) 6.9 1.6-8.6 10 ^3/uL Lymphocytes # (Auto) 2.0 0.4-5.4 10 ^3/uL Monocytes # (Auto) 0.8 0-1.3 10 ^3/uL Eosinophils # (Auto) 0 0-0.8 10 ^3/uL Basophils # (Auto) 0 0-0.2 10 ^3/uL Nucleated Red Blood Cells 0.4 % Sodium Level 132 L 136-145 mmol/L Potassium Level 4.1 3.5-5.1 mmol/L Chloride Level 99 98-107 mmol/L Carbon Dioxide Level 18 L 20-31 mmol/L Anion Gap 15 5-15 Blood Urea Nitrogen 33 H 9-23 mg/dL Creatinine 1.37 H 0.700-1.30 mg/dL Glomerular Filtration Rate Calc 68 >90 mL/min BUN/Creatinine Ratio 24.1 H 10.0-20.0 Serum Glucose 123 H 74-106 mg/dL Calcium Level 9.8 8.7-10.4 mg/dL Total Bilirubin 4.7 H 0.2-1.0 mg/dL Aspartate Amino Transferase (AST) 113 H 13-40 U/L Alanine Aminotransferase (ALT) 100 H 7-40 U/L Alkaline Phosphatase 109 46-116 U/L B-Type Natriuretic Peptide 4778.61 0-100 pg/mL Total Protein 7.1 5.7-8.2 g/dL Albumin 4.2 3.2-4.8 g/dL Lipase 82 H 12-53 U/L Plasma/Serum Blood Alcohol 3.2 <10 mg/dL POC Glucose 125 H 70-106 mg/dl Assessment/Plan Assessment/Plan ? cardiogenic shock Chest pain, rule out ACS Auditory hallucinations, likely schizophrenia flare-up-no HS/SI HFrEF LVEF 5%, NYHA class 3 Transaminitis Congenital heart disease with atrial septal defect-never repaired Dilated/biventricular cardiomyopathy Right ventricular thrombus diagnosed 01/31/2025 not on Eliquis Mitral/pulmonary/tricuspid regurgitation History of pulmonary embolus Hx of NSVT Hx of lap cholecystectomy 2019 History of febrile seizures as a kid BNP 4778, troponin EKG Abdominal ultrasound shows moderate ascites Last echocardiogram 02/23/2025 - Limited echo to assess EF. Severe biventricular enlargement with severely reduced biventricular systolic function. LVEF 5%. Large, relatively immobile structure seen in RV apex, likely thrombus (1.3 x 3.1 cm). Plan: Started Lovenox 1 mg per kg b.i.d. for RV thrombus IV dobutamine drip for probable cardiogenic shock and hypotension Continue IV Bumex 1 mg b.i.d., Hold home medication spironolactone, Farxiga, metoprolol given hypotension Resume home medication Abilify for schizophrenia. Per patient mother, the lost his medications in in the ER. Tele psych consulted for auditory hallucinations Cardiology consulted Pantoprazole 40 mg daily Diet: NPO Plan discussed with patient, mother in the ER, all questions have been answered Goals of care discussed for more than 28 minutes, full code status Case discussed with Dr. Smith Plan discussed with: Patient, Other (mom) My Orders Orders - DINO ASHRAF Procedure Category Date Status Time Admit ADMIT 02/28/25 Verified 22:28 Date of Service: Feb 28, 2025 Billing Provider: STACY SMITH MD Common Visit Codes: [id number] INP/OBS CARE (HIGH) DINO ASHRAF Feb 28, 2025 22:29
[2025-02-28] MEDS: ENOXAPARIN SOD 100 MG/1 ML SYRINGE SC SCH (22:30)
[2025-02-28] MEDS ORDERED: HYDROcodone-ACET 5/325MG TAB PO PRN (23:15)
[2025-02-28] MEDS ORDERED: ACETAMINOPHEN 500 MG TAB or CAP PO PRN (23:15)
[2025-03-01] VITALS (10 sets, daily range): BP systolic 91–104; BP diastolic 62–74; PULSE 87–131; RESP 14–20; TEMP 97.4–98; O2SAT 94–98
[2025-03-01] MEDS: DOBUTamine 1000MCG/ML 250 ML IV SCH (00:24)
[2025-03-01] MEDS: MORPHINE SULFATE INJ 2 MG/ml SYRG IV ONE (00:25)
[2025-03-01] MEDS: ONDANSETRON HCL 4 MG/2 ML VIAL IV ONE (00:25)
[2025-03-01 00:27] LABS: INR 2.16 (0.9-1.15); Prothrombin Time 21.2 sec (9.3-11.8)
[2025-03-01] MEDS: BUMETANIDE 1mg/4ml VIAL (0.25mg/ml) IV SCH (05:39)
[2025-03-01 06:13] LABS: Basophils # (auto) 0 10 ^3/uL (0-0.2); Basophils % (auto) 0.4 % (0.0-2.0); Eosinophils # (auto) 0.1 10 ^3/uL (0-0.8); Hematocrit 42.5 % (41.0-53.0); Hemoglobin 14.4 g/dL (13.5-17.5); Lymphocytes # (auto) 1.5 10 ^3/uL (0.4-5.4); Mean Corpuscular Hemoglobin 32.6 pg (28.0-32.0); Mean Corpuscular Hgb Conc. 33.8 g/dL (32.0-36.0); Mean Corpuscular Volume 96.5 fL (80.0-100.0); Monocytes # (auto) 0.6 10 ^3/uL (0-1.3); Monocytes % (auto) 9.5 % (0.0-12.0); Neutrophils # (auto) 3.7 10 ^3/uL (1.6-8.6); Neutrophils % (auto) 63.1 % (37.0-80.0); Nucleated Red Blood Cells % 0.1 %; Platelet Count (auto) 152 10^3/uL (140-450); Red Cell Distribution Width 16.3 % (11.8-14.3); White Blood Cell 5.9 10^3/uL (4.4-10.8)
[2025-03-01 06:20] LABS: Alkaline Phosphatase 86 U/L (46-116); Anion Gap 8 (5-15); BUN/Creatinine Ratio 31.8 (10.0-20.0); Calcium 8.7 mg/dL (8.7-10.4); Carbon Dioxide 26 mmol/L (20-31); Chloride 100 mmol/L (98-107); Glucose 82 mg/dL (74-106); Total Protein 5.7 g/dL (5.7-8.2)
[2025-03-01 06:21] LABS: Alanine Aminotransferase 73 U/L (7-40); Aspartate Aminotransferase 86 U/L (13-40); Blood Urea Nitrogen 28 mg/dL (9-23); Potassium 3.3 mmol/L (3.5-5.1); Sodium 134 mmol/L (136-145)
[2025-03-01 06:22] LABS: Albumin 3.4 g/dL (3.2-4.8); Bilirubin, Total 4.1 mg/dL (0.2-1.0)
[2025-03-01] MEDS: ERGOCALCIFEROL 50,000 UNIT(1.25MG) CAP PO SCH (09:27)
[2025-03-01] MEDS: PANTOPRAZOLE 40 MG/10 ML VIAL INJ IV SCH (09:27)
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
--- NOTE | 2025-03-01 12:05 | DVHPN2 ---
Subjective The patient seen and examined at bedside. still have chest pain. Reviewed: Care Plan, H&P, Labs, Medications, Previous Orders, Radiology Changes from previous H/P or p: No Changes Cardiovascular: Chest Pain, Edema Objective Vitals Vital Signs Date Time Temp Pulse Resp B/P (MAP) Pulse Ox O2 Delivery O2 Flow Rate FiO2 03/01/25 08:00 108 18 98 Room Air* 0 21 03/01/25 05:39 94/63 03/01/25 05:00 97.9 97.9 Intake/Output Intake and Output 03/01/25 07:00 Intake Total 0 ml Balance 0 ml Intake Oral 0 ml # Voids 2 General Appearance: Alert, Oriented X3, Cooperative, No acute distress HEENT: Atraumatic, PERRLA, EOMI, Mucous membr. moist/pink Cardiovascular: Regular rate, Normal S1, Normal S2, No murmurs, Gallops, Rubs Abdomen: Normal bowel sounds, Soft, No tenderness Neuro: Cranial nerves 3-12 NL Psych/Mental Status: Mental status NL Medications Current Medications Medications Dose Ordered Sig/Albert Route Start Time Stop Time Status Last Admin Dose Admin Enoxaparin Sodium 100 mg Q12HR SC 02/28/25 22:30 03/01/25 09:28 100 MG Acetaminophen 500 mg Q4HPRN PRN PO 02/28/25 23:15 Acetaminophen/ Hydrocodone Bitart 1 tab Q4HPRN PRN PO 02/28/25 23:15 Dobutamine HCl/ Dextrose 250 ml @ 14.25 mls/ hr [id number] IV 02/28/25 23:15 03/01/25 00:24 14.25 MLS/HR Pantoprazole Sodium 40 mg DAILY IV 03/01/25 10:00 03/01/25 09:27 40 MG Bumetanide 1 mg BIDD IV 03/01/25 06:00 Ergocalciferol 50,000 unit Q7D PO 03/01/25 07:00 03/01/25 09:27 50,000 UNIT Laboratory Results Laboratory Tests 03/01/25 05:14 Chemistry Test 02/28/25 23:43 03/01/25 05:14 Magnesium Level 2.8 mg/dL (1.6-2.6) H Albumin 3.4 g/dL (3.2-4.8) Calcium Level 8.7 mg/dL (8.7-10.4) Total Protein 5.7 g/dL (5.7-8.2) Coagulation Test 02/28/25 23:43 Prothrombin Time 21.2 sec (9.3-11.8) H Prothrombin Time INR 2.16 (0.9-1.15) H Activated Partial Thromboplast Time 31.0 SEC (24.5-34.5) LFT Test 03/01/25 05:14 Alanine Aminotransferase (ALT) 73 U/L (7-40) H Alkaline Phosphatase 86 U/L (46-116) Aspartate Amino Transferase (AST) 86 U/L (13-40) H Total Bilirubin 4.1 mg/dL (0.2-1.0) H HgA1c, TSH Test 02/28/25 23:43 Hemoglobin A1c 5.9 % A1C (<5.7) H Thyroid Stimulating Hormone (TSH) 4.23 uIU/mL (0.55-4.78) Labs and/or images reviewed: Labs reviewed by me Assessment/Plan Assessment/Plan ? cardiogenic shock Chest pain, rule out ACS Auditory hallucinations, likely schizophrenia flare-up-no HS/SI HFrEF LVEF 5%, NYHA class 3 Transaminitis Congenital heart disease with atrial septal defect-never repaired Dilated/biventricular cardiomyopathy Right ventricular thrombus diagnosed 01/31/2025 not on Eliquis Mitral/pulmonary/tricuspid regurgitation History of pulmonary embolus Hx of NSVT Hx of lap cholecystectomy 2019 History of febrile seizures as a kid Plan: Continue Lovenox 1 mg per kg b.i.d. for RV thrombus IV dobutamine drip for probable cardiogenic shock and hypotension Continue IV Bumex 1 mg b.i.d., Hold home medication spironolactone, Farxiga, metoprolol given hypotension Resume home medication Abilify for schizophrenia. Per patient mother, the lost his medications in in the ER. Tele psych consulted for auditory hallucinations Cardiology consulted This medical document was created using an electronic medical record system with [employer] direct computerized dictation system. Although this document has been carefully reviewed, there may still be some phonetic and typographical errors. These areas are purely typographical due to imperfections of the software programs, and do not reflect any compromise in the patient's medical care. Plan discussed with: Patient Date of Service: March 01, 2025 Billing Provider: ZACHARY GANDHI MD Common Visit Codes: [id number] INP/OBS CARE(HIGH) ZACHARY GANDHI MD March 01, 2025 12:05
[2025-03-01] MEDS: POTASSIUM EFFERVESENT TAB 25 MEQ PO ONE (16:33)
--- NOTE | 2025-03-01 19:14 | DVHINCON2 ---
Date of Service if different f: March 01, 2025 Time of Service: 18:39 Consult Consult Note PSYCHIATRY INPATIENT NEW CONSULT HPI: 39 yo M pt with PPH of schizophrenia and ID admitted to inpt medical unit for chest pain. Psychiatry consulted for safety evaluation and recommendations in context of AH/paranoia Per pt, reports over past several days, c/o paranoia of being persecuted, poor sleep, poor appetite, vague NC/NT AH. Denies depressed mood, hopelessness, helplessness, isolation, negative thoughts, or anhedonia Denies SI/HI/VH/catatonia. No overt manic, psychotic, MDD, cognitive, dissociative phenomena, panic, OCD, PTSD, or somatic symptoms noted. Denies acut e psychosocial stressors although expresses appropriate worry regarding recent medical/cardiac issues Pt currently does not have active outpt MH services established at this time. Currently rx'd Abilify 5 mg qd (initiated several weeks ago during most recent ED admission) with minimal therapeutic effects. prior psych med - depakote in 2021 Denies ETOH, THC or IDU Never , no children, unemployed/ssi, lives with parents/siblings, some support system noted (immediate family) Unknown trauma hx. Denies FH of psych hospitalizations, suicide attempts, or completed suicides Denies hx of SI/SIB/SA/PSG or prior psych hospitalizations/5150 holds. Denies history of violence, unprovoked aggression, or assaultive behaviors. Denies recent hx of impulsivity, attention seeking behaviors, anger outbursts, emotional dysregulation, mood reactivity, or engaging in risky behaviors Currently denies SI/HI/VH. Does not have access to firearms. No acute safety concerns noted during encounter MSE: General Appearance/Behavior: Alert and awake; appears stated age, overweight, fair grooming and hygiene; calm and cooperative, fair eye contact, no PMA/PMR Speech: incoherent at times, monotone Thought Process: linear, logical, bit concrete/limited Thought Content: Abnormal Thoughts and Perceptions: denies dissociative symptoms Homicidality / Violent Thoughts: adamantly denies HI Suicidality: adamantly denies SI Hallucinations: +AH Delusions: + paranoia, persecutory delusions Obsessions /compulsions: None Judgment and Insight: marginal/limited Mood & Affect: "okay" with mood-congruent, somewhat restricted but appropriate Orientation: oriented to person, place, time Attention/Concentration: appears intact Cognition: grossly intact Assessment: 39 yo M pt with PPH of schizophrenia and ID admitted to inpt medical unit for chest pain. Psychiatry consulted for safety evaluation and recommendations in context of AH/paranoia Pts presenting MH symptoms can be 2/2 recent stress surrounding acute cardiac/medical issues prompting inpt medical admission in addition to hx of mild schizophrenia with minimal improvement on abilify started several weeks ago Presently, pt does not show any signs of immediate danger to self or others that would necessitate a higher level of care. Thus, pt does not meet criteria for 5150 or involuntary inpatient psych admission as is not DTS/DTO or GD. No acute safety concerns noted. Acute suicide risk appears nonexistent to relatively low. No hx of SI/SIB/SA/PSG or prior psych hospitalizations/5150 holds is reassuring Currently rx'd Abilify 5 mg qd Recommend d/c Abilify and starting pt on 2 week trial of Olanzapine 5 mg qhs Primary Diagnosis: Psychotic disorder unspecified. Schizophrenia, hx. R/o Delirium Plan: Does not warrant involuntary inpatient psychiatric hospitalization or 5150 hold at this time No acute safety concerns Pt can be safely discharged back to current residence after medical discharge D/c Abilify Start Olanzapine 5 mg qhs - first dose now Risks/benefits/alternative treatments discussed, informed consent provided by pt Supportive tx provided, discussed safety plan with pt Encouraged mindfulness techniques (reading, walking, meditation, journaling, exercise, deep breathing) during times of stress Instructed pt to call/text [phone] or return to ED if MH symptoms worsen or new onset SI/HI upon discharge Family (parent at bedside) agrees to watch patient over next couple days, safeguard primary residence, and to arrange any appropriate f/u appointments Pt verbalized understanding and is receptive to above tx plan This case was discussed with INPATIENT nurse/provider and all parties in agreement with above tx plan Luis Holman MD Plan discussed with: Patient, Other (parent at bedside) LUIS HOLMAN MD March 01, 2025 19:13
[2025-03-01] MEDS: OLANZapine 5 MG TAB PO ONE (21:45)
[2025-03-02] VITALS (8 sets, daily range): BP systolic 91–111; BP diastolic 47–77; PULSE 102–129; RESP 18–24; TEMP 97.6–98.9; O2SAT 96–98
[2025-03-02 07:12] LABS: Basophils # (auto) 0 10 ^3/uL (0-0.2); Basophils % (auto) 0.1 % (0.0-2.0); Eosinophils # (auto) 0 10 ^3/uL (0-0.8); Eosinophils % (auto) 0.3 % (0.0-7.0); Hematocrit 45.8 % (41.0-53.0); Hemoglobin 15.3 g/dL (13.5-17.5); Lymphocytes % (auto) 13.9 % (10.0-50.0); Mean Corpuscular Hemoglobin 32.5 pg (28.0-32.0); Mean Corpuscular Hgb Conc. 33.3 g/dL (32.0-36.0); Mean Corpuscular Volume 97.5 fL (80.0-100.0); Monocytes # (auto) 0.5 10 ^3/uL (0-1.3); Monocytes % (auto) 6.4 % (0.0-12.0); Neutrophils # (auto) 5.8 10 ^3/uL (1.6-8.6); Neutrophils % (auto) 79.3 % (37.0-80.0); Nucleated Red Blood Cells % 0.3 %; Platelet Count (auto) 166 10^3/uL (140-450); Red Cell Distribution Width 17.1 % (11.8-14.3); White Blood Cell 7.3 10^3/uL (4.4-10.8)
[2025-03-02 07:32] LABS: Potassium 3.9 mmol/L (3.5-5.1)
[2025-03-02 07:33] LABS: Anion Gap 9 (5-15); Calcium 9.2 mg/dL (8.7-10.4); Carbon Dioxide 25 mmol/L (20-31)
[2025-03-02 07:38] LABS: BUN/Creatinine Ratio 22.2 (10.0-20.0); Blood Urea Nitrogen 20 mg/dL (9-23); Chloride 97 mmol/L (98-107); Sodium 131 mmol/L (136-145)
[2025-03-02 07:55] LABS: Glucose 112 mg/dL (74-106)
--- NOTE | 2025-03-02 11:57 | DVHPN2 ---
Subjective The patient seen and examined at bedside. still have chest pain. Reviewed: Care Plan, H&P, Labs, Medications, Previous Orders, Radiology Changes from previous H/P or p: No Changes Cardiovascular: Chest Pain, Edema Objective Vitals Vital Signs Date Time Temp Pulse Resp B/P (MAP) Pulse Ox O2 Delivery O2 Flow Rate FiO2 03/02/25 10:16 125/71 03/02/25 09:00 97.6 113 24 96 97.6 03/02/25 08:00 Room Air* 0 21 Intake/Output Intake and Output 03/02/25 07:00 Intake Total 2271 ml Output Total 1150 ml Balance 1121 ml Intake Oral 2100 ml IV Total 171 ml Output Urine Total 1150 ml General Appearance: Alert, Oriented X3, Cooperative, No acute distress HEENT: Atraumatic, PERRLA, EOMI, Mucous membr. moist/pink Cardiovascular: Regular rate, Normal S1, Normal S2, No murmurs, Gallops, Rubs Abdomen: Normal bowel sounds, Soft, No tenderness Neuro: Cranial nerves 3-12 NL Psych/Mental Status: Mental status NL Medications Current Medications Medications Dose Ordered Sig/Albert Route Start Time Stop Time Status Last Admin Dose Admin Enoxaparin Sodium 100 mg Q12HR SC 02/28/25 22:30 03/02/25 09:32 100 MG Acetaminophen 500 mg Q4HPRN PRN PO 02/28/25 23:15 Acetaminophen/ Hydrocodone Bitart 1 tab Q4HPRN PRN PO 02/28/25 23:15 Dobutamine HCl/ Dextrose 250 ml @ 14.25 mls/ hr [id number] IV 02/28/25 23:15 03/02/25 10:16 14.25 MLS/HR Pantoprazole Sodium 40 mg DAILY IV 03/01/25 10:00 03/02/25 09:32 40 MG Bumetanide 1 mg BIDD IV 03/01/25 06:00 03/02/25 05:46 1 MG Ergocalciferol 50,000 unit Q7D PO 03/01/25 07:00 03/01/25 09:27 50,000 UNIT Olanzapine 5 mg HS PO 03/02/25 22:00 Laboratory Results Laboratory Tests 03/02/25 06:16 Chemistry Test 03/02/25 06:16 Calcium Level 9.2 mg/dL (8.7-10.4) Cardiac Markers Test 03/02/25 06:16 B-Type Natriuretic Peptide 2043.35 pg/mL (0-100) Microbiology Microbiology Date/Time Source Procedure Growth Status 03/01/25 06:30 Nose MRSA Screen - Final Complete Labs and/or images reviewed: Labs reviewed by me Assessment/Plan Assessment/Plan ? cardiogenic shock Chest pain, rule out ACS Auditory hallucinations, likely schizophrenia flare-up-no HS/SI HFrEF LVEF 5%, NYHA class 3 Transaminitis Congenital heart disease with atrial septal defect-never repaired Dilated/biventricular cardiomyopathy Right ventricular thrombus diagnosed 01/31/2025 not on Eliquis Mitral/pulmonary/tricuspid regurgitation History of pulmonary embolus Hx of NSVT Hx of lap cholecystectomy 2019 History of febrile seizures as a kid Plan: Continue Lovenox 1 mg per kg b.i.d. for RV thrombus IV dobutamine drip for probable cardiogenic shock and hypotension Continue IV Bumex 1 mg b.i.d., Hold home medication spironolactone, Farxiga, metoprolol given hypotension Resume home medication Abilify for schizophrenia. Per patient mother, the lost his medications in in the ER. Tele psych consulted for auditory hallucinations Cardiology consulted input appreciate. This medical document was created using an electronic medical record system with [employer] direct computerized dictation system. Although this document has been carefully reviewed, there may still be some phonetic and typographical errors. These areas are purely typographical due to imperfections of the software programs, and do not reflect any compromise in the patient's medical care. Plan discussed with: Patient My Orders Orders - ZACHARY GANDHI MD Procedure Category Date Status Time Cardiac DIET 03/01/25 Transmitted Diet-2gna,Lofat,Lochol Lunch Date of Service: March 02, 2025 Billing Provider: ZACHARY GANDHI MD Common Visit Codes: [id number] INP/OBS CARE(HIGH) ZACHARY GANDHI MD March 02, 2025 11:56
--- NOTE | 2025-03-02 13:33 | DVHPN2 ---
Consult Progress Note Date Seen: March 02, 2025 Subjective Review of Systems: CVS:Normal, RESPIRATORY:Normal, NEURO:Normal Other Systems: C/o fear Objective vital signs Vital Sign Date Time Temp Pulse Resp B/P (MAP) Pulse Ox O2 Delivery O2 Flow Rate FiO2 03/02/25 10:16 125/71 03/02/25 09:00 97.6 113 24 96 97.6 03/02/25 08:00 Room Air* 0 21 Total Intake and Output 03/01/25 03/01/25 03/02/25 15:00 23:00 07:00 Intake Total 1271 ml 1000 ml Output Total 500 ml 650 ml Balance 771 ml 350 ml medications Current Medications Medications Dose Ordered Sig/Albert Route Start Time Stop Time Status Last Admin Dose Admin Enoxaparin Sodium 100 mg Q12HR SC 02/28/25 22:30 03/02/25 09:32 100 MG Acetaminophen 500 mg Q4HPRN PRN PO 02/28/25 23:15 Acetaminophen/ Hydrocodone Bitart 1 tab Q4HPRN PRN PO 02/28/25 23:15 Dobutamine HCl/ Dextrose 250 ml @ 14.25 mls/ hr [id number] IV 02/28/25 23:15 03/02/25 10:16 14.25 MLS/HR Pantoprazole Sodium 40 mg DAILY IV 03/01/25 10:00 03/02/25 09:32 40 MG Bumetanide 1 mg BIDD IV 03/01/25 06:00 03/02/25 05:46 1 MG Ergocalciferol 50,000 unit Q7D PO 03/01/25 07:00 03/01/25 09:27 50,000 UNIT Olanzapine 5 mg HS PO 03/02/25 22:00 Examination: GENERAL:Abnormal (Extremely anxious), LUNGS:Normal, CVS:Abnormal (Sinus tachycardia), NEURO:Normal laboratory and microbiology Laboratory Tests 03/02/25 06:16 Test 03/02/25 06:16 Range/Units Serum Glucose 112 H 74-106 mg/dL Problem List/Assessment/Plan Problem List/Assessment/Plan Acute on chronic decompensated HFrEF with LVEF of 5%, NYHA class III Mitral/pulmonary/tricuspid valves regurgitation, moderate to severe degree Congenital heart disease with hx of atrial septal defect Dilated/biventricular cardiomyopathy RV thrombus with Eliquis therapy History of pulmonary embolus History of Nonsustained Ventricular tachycardia Hypokalemia Vitamin-D deficiency Schizophrenia with acute psychotic episodes Morbid obesity, Class 3 Plan/Recommendation (Dr. Apple) Case discussed with . Previous transthoracic echocardiogram from 01/31/2025 revealed LVEF 5% with severe biventricular enlargement and a large relatively immobile structure seen in the RV apex, likely to be a thrombus. Transition to Eliquis therapy. Discontinue dobutamine drip given sinus tachycardia. Initiate GDMT for CHF and uptitrate as tolerated. Strict intake and output, daily weights, and maintain fluid restriction. Patient returned Zoll LifeVest which was ordered on a previous admission. The patient with biventricular/end-stage heart failure is currently being seen and evaluated at [facility] for heart and lung transplant with upcoming appointment on 03/05/2025. There is no further cardiac work-up indicated at this time. Kindly call if in need to re-consult. Thank you for allowing us to care for this patient. This medical document was created using an electronic medical record system with voice recognition software and computerized dictation system. Although this document has been carefully reviewed, there might still be some phonetic and typographical errors. Occasional wrong-word or ``sound-alike substitutions may have occurred due to the inherent limitations of voice recognition software. These areas are purely typographical due to imperfections of the software programs and do not reflect any compromise in the patient's medical care. Please read the chart carefully and recognize, using context, where these substitutions have occurred. Plan discussed with: Patient, Other Date of Service: March 02, 2025 Billing Provider: EUGENE DENTON Cardiology Common Codes: [id number] HOSP CARE(High EUGENE DENTON March 02, 2025 13:33
[2025-03-02] MEDS: OLANZapine 5 MG TAB PO SCH (23:08)
[2025-03-02] MEDS: APIXABAN 5 MG TAB PO SCH (23:08)
[2025-03-02] MEDS: SACUBITRIL-VALSARTAN 24mg/26mg TAB PO SCH (23:08)
[2025-03-03] VITALS (7 sets, daily range): BP systolic 82–112; BP diastolic 44–78; PULSE 109–125; RESP 18–22; TEMP 97.1–98.1; O2SAT 95–97
[2025-03-03] MEDS: POTASSIUM CHL 20 Meq TABLET PO ONE (00:20)
[2025-03-03 01:11] LABS: Albumin 3.9 g/dL (3.2-4.8); Alkaline Phosphatase 92 U/L (46-116); Anion Gap 9 (5-15); BUN/Creatinine Ratio 21.6 (10.0-20.0); Calcium 9.1 mg/dL (8.7-10.4); Carbon Dioxide 24 mmol/L (20-31); Chloride 100 mmol/L (98-107); Magnesium 2.2 mg/dL (1.6-2.6); Potassium 3.7 mmol/L (3.5-5.1); Total Protein 6.5 g/dL (5.7-8.2)
[2025-03-03 01:12] LABS: Alanine Aminotransferase 64 U/L (7-40); Aspartate Aminotransferase 60 U/L (13-40); Bilirubin, Total 4.3 mg/dL (0.2-1.0); Blood Urea Nitrogen 24 mg/dL (9-23); Glucose 155 mg/dL (74-106); Sodium 133 mmol/L (136-145)
[2025-03-03] MEDS: SPIRONOLACTONE 25 MG TAB PO SCH (09:59)
[2025-03-03] MEDS: EMPAGLIFLOZIN 10 MG TAB PO SCH (09:59)
--- NOTE | 2025-03-03 12:10 | ECG ---
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
--- NOTE | 2025-03-03 15:39 | DVHPN2 ---
Subjective The patient seen and examined at bedside. still have chest pain. Reviewed: Care Plan, H&P, Labs, Medications, Previous Orders, Radiology Cardiovascular: Chest Pain, Edema Objective Vitals Vital Signs Date Time Temp Pulse Resp B/P (MAP) Pulse Ox O2 Delivery O2 Flow Rate FiO2 03/03/25 12:50 97.9 109 22 82/44 (57) 97 97.9 03/03/25 08:00 Room Air* 0 21 Intake/Output Intake and Output 03/03/25 07:00 Intake Total 1286.6 ml Output Total 3400 ml Balance -2113.4 ml Intake Oral 1194 ml IV Total 92.6 ml Output Urine Total 3400 ml General Appearance: Alert, Oriented X3, Cooperative, No acute distress HEENT: Atraumatic, PERRLA, EOMI, Mucous membr. moist/pink Cardiovascular: Regular rate, Normal S1, Normal S2, No murmurs, Gallops, Rubs Abdomen: Normal bowel sounds, Soft, No tenderness Neuro: Cranial nerves 3-12 NL Psych/Mental Status: Mental status NL Medications Current Medications Medications Dose Ordered Sig/Albert Route Start Time Stop Time Status Last Admin Dose Admin Acetaminophen 500 mg Q4HPRN PRN PO 02/28/25 23:15 Acetaminophen/ Hydrocodone Bitart 1 tab Q4HPRN PRN PO 02/28/25 23:15 Pantoprazole Sodium 40 mg DAILY IV 03/01/25 10:00 03/03/25 09:58 40 MG Bumetanide 1 mg BIDD IV 03/01/25 06:00 03/03/25 05:29 1 MG Ergocalciferol 50,000 unit Q7D PO 03/01/25 07:00 03/01/25 09:27 50,000 UNIT Olanzapine 5 mg HS PO 03/02/25 22:00 03/02/25 23:08 5 MG Apixaban 5 mg BID PO 03/02/25 22:00 03/03/25 09:59 5 MG Sacubitril/ Valsartan 0.5 tab BID PO 03/02/25 22:00 03/03/25 09:58 0.5 TAB Spironolactone 12.5 mg DAILY PO 03/03/25 10:00 03/03/25 09:59 12.5 MG Empaglifozin 10 mg DAILY PO 03/03/25 10:00 03/03/25 09:59 10 MG Laboratory Results Laboratory Tests 03/02/25 06:16 03/03/25 00:25 Chemistry Test 03/03/25 00:25 Albumin 3.9 g/dL (3.2-4.8) Calcium Level 9.1 mg/dL (8.7-10.4) Magnesium Level 2.2 mg/dL (1.6-2.6) Total Protein 6.5 g/dL (5.7-8.2) Cardiac Markers Test 03/03/25 05:23 B-Type Natriuretic Peptide > 5000.00 pg/mL (0-100) LFT Test 03/03/25 00:25 Alanine Aminotransferase (ALT) 64 U/L (7-40) H Alkaline Phosphatase 92 U/L (46-116) Aspartate Amino Transferase (AST) 60 U/L (13-40) H Total Bilirubin 4.3 mg/dL (0.2-1.0) H Microbiology Microbiology Date/Time Source Procedure Growth Status 03/01/25 06:30 Nose MRSA Screen - Final Complete Assessment/Plan Assessment/Plan ? cardiogenic shock Chest pain, rule out ACS Auditory hallucinations, likely schizophrenia flare-up-no HS/SI HFrEF LVEF 5%, NYHA class 3 Transaminitis Congenital heart disease with atrial septal defect-never repaired Dilated/biventricular cardiomyopathy Right ventricular thrombus diagnosed 01/31/2025 not on Eliquis Mitral/pulmonary/tricuspid regurgitation History of pulmonary embolus Hx of NSVT Hx of lap cholecystectomy 2019 History of febrile seizures as a kid Plan: Continue Lovenox 1 mg per kg b.i.d. for RV thrombus IV dobutamine drip for probable cardiogenic shock and hypotension Continue IV Bumex 1 mg b.i.d., Hold home medication spironolactone, Farxiga, metoprolol given hypotension Resume home medication Abilify for schizophrenia. Per patient mother, the lost his medications in in the ER. Tele psych consulted for auditory hallucinations Cardiology consulted input appreciate. This medical document was created using an electronic medical record system with [employer] direct computerized dictation system. Although this document has been carefully reviewed, there may still be some phonetic and typographical errors. These areas are purely typographical due to imperfections of the software programs, and do not reflect any compromise in the patient's medical care. ZACHARY GANDHI MD March 03, 2025 15:39
--- NOTE | 2025-03-03 16:21 | DVHDS2 ---
Discharge Summary Date of Admission Feb 28, 2025 at 22:28 Date of Discharge: March 03, 2025 Admitting Diagnosis ? cardiogenic shock Chest pain, rule out ACS Auditory hallucinations, likely schizophrenia flare-up-no HS/SI HFrEF LVEF 5%, NYHA class 3 Transaminitis Congenital heart disease with atrial septal defect-never repaired Dilated/biventricular cardiomyopathy Right ventricular thrombus diagnosed 01/31/2025 not on Eliquis Mitral/pulmonary/tricuspid regurgitation History of pulmonary embolus Hx of NSVT Hx of lap cholecystectomy 2019 History of febrile seizures as a kid Labs/Diagnostic Data: Laboratory Results Test 03/03/25 05:23 03/03/25 00:25 03/02/25 06:16 02/28/25 23:43 B-Type Natriuretic Peptide > 5000.00 pg/mL (0-100) Sodium Level 133 mmol/L (136-145) Potassium Level 3.7 mmol/L (3.5-5.1) Chloride Level 100 mmol/L (98-107) Carbon Dioxide Level 24 mmol/L (20-31) Anion Gap 9 (5-15) Blood Urea Nitrogen 24 mg/dL (9-23) Creatinine 1.11 mg/dL (0.700-1.30) Glomerular Filtration Rate Calc 88 mL/min (>90) BUN/Creatinine Ratio 21.6 (10.0-20.0) Serum Glucose 155 mg/dL (74-106) Calcium Level 9.1 mg/dL (8.7-10.4) Magnesium Level 2.2 mg/dL (1.6-2.6) Total Bilirubin 4.3 mg/dL (0.2-1.0) Aspartate Amino Transferase (AST) 60 U/L (13-40) Alanine Aminotransferase (ALT) 64 U/L (7-40) Alkaline Phosphatase 92 U/L (46-116) Total Protein 6.5 g/dL (5.7-8.2) Albumin 3.9 g/dL (3.2-4.8) White Blood Count 7.3 10^3/uL (4.4-10.8) Red Blood Count 4.70 10^6/uL (4.5-5.90) Hemoglobin 15.3 g/dL (13.5-17.5) Hematocrit 45.8 % (41.0-53.0) Mean Corpuscular Volume 97.5 fL (80.0-100.0) Mean Corpuscular Hemoglobin 32.5 pg (28.0-32.0) Mean Corpuscular Hemoglobin Concent 33.3 g/dL (32.0-36.0) Red Cell Distribution Width 17.1 % (11.8-14.3) Platelet Count 166 10^3/uL (140-450) Mean Platelet Volume 10.9 fL (6.9-10.8) Neutrophils (%) (Auto) 79.3 % (37.0-80.0) Lymphocytes (%) (Auto) 13.9 % (10.0-50.0) Monocytes (%) (Auto) 6.4 % (0.0-12.0) Eosinophils (%) (Auto) 0.3 % (0.0-7.0) Basophils (%) (Auto) 0.1 % (0.0-2.0) Neutrophils # (Auto) 5.8 10 ^3/uL (1.6-8.6) Lymphocytes # (Auto) 1.0 10 ^3/uL (0.4-5.4) Monocytes # (Auto) 0.5 10 ^3/uL (0-1.3) Eosinophils # (Auto) 0 10 ^3/uL (0-0.8) Basophils # (Auto) 0 10 ^3/uL (0-0.2) Nucleated Red Blood Cells 0.3 % Prothrombin Time 21.2 sec (9.3-11.8) Prothrombin Time INR 2.16 (0.9-1.15) Activated Partial Thromboplast Time 31.0 SEC (24.5-34.5) Hemoglobin A1c 5.9 % A1C (<5.7) Serum Osmolality 286 mOsm/kg (278-298) Vitamin B12 Level 1537 pg/mL (211-911) Vitamin D 25-Hydroxy 24.9 ng/mL (30.0-100) Thyroid Stimulating Hormone (TSH) 4.23 uIU/mL (0.55-4.78) Test 02/28/25 12:10 02/28/25 11:14 02/28/25 11:09 Troponin I High Sensitivity 39 ng/L (</=54) Lipase 82 U/L (12-53) Plasma/Serum Blood Alcohol 3.2 mg/dL (<10) POC Glucose 125 mg/dl (70-106) Other Laboratory Tests 03/03/25 00:25 03/02/25 06:16 Brief Hx & Hospital Course: This is a 39 years old male with past medical history febrile seizure as a kid, congestive heart failure with EF 5%, congenital heart disease, and atrial septal defect that had never been repair. Per mom she never follow up for his atrial septal defect repair movement which supposed to happen when he was a child. He also suffer from dilated by ventricular cardiomyopathy, right ventricular thrombus was diagnosed on 01/31/2025. The patient is not on Eliquis because he took himself off. He had mitral valve and pulmonary and tricuspid valve regurgitation, history of pulmonary embolism, and SVT, schizophrenia on Abilify came to emergency department because of auditory hallucination and chest pain. Per patient's mother the patient did not sleep for three days and had not been eating for three day. He was thinking that everybody around the house we will try to hurt him and he will get him. He had no appetite in refused to eat any food that she cooks for him. The patient said his chest pain is on the left side, tightness, intermittent, no radiation. He is on heart transplant list and follow up at [place]. His neck appointment is 03/05/2025. He apparently received a Zoll's LifeVest on last admission due to his RV thrombus which he return and refused to wear. The patient was admitted. The patient was put on dobutamine drip. Then subsequently discontinuing by assembly manager. Cardiology see the patient and recommend continuing Eliquis and follow up with [place] for heart transplant. The patient is stable today. The patient is able to eat and no longer hallucinating. I am going to discharge the patient home. Advised the patient to follow up with his appointment in [place]. Follow up with his primary care physician 1-2 weeks. Follow up with his assembly manager's per schedule. Activity as tolerated. Diet per home diet. Recommend low-salt low- cholesterol diet. Recommend the patient compliance with medication. Physical exam: HEENT: Normocephalic atraumatic pupils equal react to light and accommodation. Extraocular muscles intact, conjunctiva pink, oropharynx moist, no thrush, no exudate. Lymphatic: No lymphadenopathy Cardiovascular exam: S1, S2 was heard. No murmurs, rubs, gallops Lung: Clear on auscultation bilaterally, no wheeze, rale, rhonchi. GI: Abdominal soft, nondistended, nontenderness, positive bowel sounds. Extremity: No crepitus, cyanosis, edema. Pedal pulses present bilateral. Full range of motion. Skin: Normal turgor, no rash. Psych: Alert, oriented x3. Neurology: No focal deficits, cranial nerve II to XII grossly intact. This medical document was created using an electronic medical record system with [employer] dictation system. Although this document has been carefully reviewed, there may still be some phonetic and typographical errors. These areas are purely typographical due to imperfections of the software programs, and do not reflect any compromise in the patient's medical care. Condition at Discharge: Stable Final Diagnosis/Problems List Acute on chronic decompensated HFrEF with LVEF of 5%, NYHA class III Mitral/pulmonary/tricuspid valves regurgitation, moderate to severe degree Congenital heart disease with hx of atrial septal defect Dilated/biventricular cardiomyopathy RV thrombus with Eliquis therapy History of pulmonary embolus History of Nonsustained Ventricular tachycardia Hypokalemia Vitamin-D deficiency Schizophrenia with acute psychotic episodes Morbid obesity, Class 3 Auditory hallucination Discharge Disposition: Home Discharge Instruct/Medications Diet: Cardiac 2g Na,low cholest Activity: No Restrictions, As Tolerated Follow Up/Referral: 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 Patient was counseled about treatment plan, medications, possible side effects, patientverbalized understanding. All questions were answered to the best of my ability. This discharge took greater then 30 minutes in planning, reviewing documentation, counseling the patient, and discussing with other team members." ASSESSMENT ASSESSMENT Assessment CHEST PAIN Date of Service: March 03, 2025 Billing Provider: ZACHARY GANDHI MD Common Visit Codes: 03342-QOM/OBS DISCH DAY >30min ZACHARY GANDHI MD March 03, 2025 16:21
[2025-03-03] MEDS ORDERED: OLAN1TAB7 PO (16:25)
[2025-03-03] MEDS ORDERED: APIX5TAB PO (16:25)
[2025-03-03] MEDS ORDERED: SACU1TAB PO (16:25)
[2025-03-03] MEDS ORDERED: EMPA1TAB PO (16:25)
== END 2025-03-03 18:00 | disposition home or self-care (01) | DRG 194 ==
LOC: ER 11:04 → OVERFLOW 22:28 → TELE-EAST 22:29
PROVIDERS: ADMIT Internal Medicine; ATTEND Internal Medicine
DX: I50.23 Acute on chronic systolic (congestive) heart failure (principal); R57.0 Cardiogenic shock; I42.0 Dilated cardiomyopathy; F20.9 Schizophrenia, unspecified; E87.6 Hypokalemia; E55.9 Vitamin D deficiency, unspecified; E66.01 Morbid (severe) obesity due to excess calories; Q21.10 Atrial septal defect, unspecified; Z90.49 Acquired absence of other specified parts of digestive tract; Z86.711 Personal history of pulmonary embolism; Z83.3 Family history of diabetes mellitus; Z82.49 Family history of ischemic heart disease and other diseases of the circulatory system; Z79.01 Long term (current) use of anticoagulants; Z79.899 Other long term (current) drug therapy
CPT/HCPCS: 36415; 71045; 76705; 80048; 80053; 80320; 82306; 82607; 82962; 83036; 83690; 83735; 83880; 83930; 84443; 84484; 85025; 85610; 85730; 87081; 93005; 96372; G0378; J2405; J2470

== ENCOUNTER 2025-03-09 13:25 | Emergency (ER) | payer OTHER ==
[~2025-03-09] VITALS: Ht 165.1 cm; Wt 82.0 kg
[~2025-03-09 13:25] MED LIST changes: +EMPA1TAB PO; +OLAN1TAB7 PO; +SACU1TAB PO
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
[2025-03-09 14:00] LABS: Basophils # (auto) 0 10 ^3/uL (0-0.2); Basophils % (auto) 0.1 % (0.0-2.0); Eosinophils # (auto) 0 10 ^3/uL (0-0.8); Eosinophils % (auto) 0.1 % (0.0-7.0); Hematocrit 44.3 % (41.0-53.0); Lymphocytes # (auto) 0.4 10 ^3/uL (0.4-5.4); Lymphocytes % (auto) 4.4 % (10.0-50.0); Mean Corpuscular Hemoglobin 32.8 pg (28.0-32.0); Mean Corpuscular Hgb Conc. 33.9 g/dL (32.0-36.0); Mean Corpuscular Volume 96.8 fL (80.0-100.0); Monocytes # (auto) 0.6 10 ^3/uL (0-1.3); Monocytes % (auto) 6.6 % (0.0-12.0); Neutrophils # (auto) 8.4 10 ^3/uL (1.6-8.6); Neutrophils % (auto) 88.8 % (37.0-80.0); Nucleated Red Blood Cells % 0.1 %; Platelet Count (auto) 145 10^3/uL (140-450); Red Blood Cells 4.58 10^6/uL (4.5-5.90); Red Cell Distribution Width 16.8 % (11.8-14.3); White Blood Cell 9.5 10^3/uL (4.4-10.8)
[2025-03-09 14:13] LABS: Potassium 3.6 mmol/L (3.5-5.1)
[2025-03-09 14:14] LABS: Anion Gap 11 (5-15); Carbon Dioxide 21 mmol/L (20-31)
[2025-03-09 14:15] LABS: Calcium 9.5 mg/dL (8.7-10.4)
[2025-03-09 14:20] LABS: BUN/Creatinine Ratio 20.6 (10.0-20.0); Blood Alcohol < 3.0 mg/dL (<10); Blood Urea Nitrogen 21 mg/dL (9-23); Chloride 95 mmol/L (98-107); Glucose 156 mg/dL (74-106); Sodium 127 mmol/L (136-145)
[2025-03-09] MEDS: diphenhdrAMINE HCL 50 MG/1 ML VL IM ONE (14:27)
[2025-03-09] MEDS: HALOPERIDOL LACTATE 5 MG/ML INJ VIAL IM ONE (14:27)
[2025-03-09] MEDS: LORazepam 2MG/ML-1ML VIAL ONE (14:28)
[2025-03-09] MEDS: HALOPERIDOL LACTATE 5 MG/ML INJ VIAL ONE (14:28)
[2025-03-09] MEDS: diphenhdrAMINE HCL 50 MG/1 ML VL ONE (14:28)
[2025-03-09] MEDS: LORazepam 2MG/ML-1ML VIAL IM ONE (14:28)
[2025-03-09 14:35] VITALS: PULSE 97; RESP 14; O2SAT 92
[2025-03-09] MEDS: SODIUM CHLORIDE 0.9% 1,000 ML IV ONE (14:56)
[2025-03-09 20:30] VITALS: PULSE 96; RESP 25; O2SAT 96
--- NOTE | 2025-03-10 07:14 | ECG ---
[facility] Test Date: 2025-03-09 Test Time: 13:35:53 Pat Name: DOTTIE KENNEDY Department: ED Room: Gender: M Polysomnography Technician: ELISE : 1985 Requested By: RADHA VIVEROS Order Number: [id number] Reading MD: Thad Apple Measurements Intervals [place] Rate: 114 P: 105 VT: 212 QRS: 125 QRSD: 97 T: -28 QT: 327 QTc: 451 Interpretive Statements Sinus tachycardia Prolonged VT interval Probable left atrial enlargement Anterior infarct, old Borderline T abnormalities, inferior leads Baseline wander in lead(s) I,III,aVL Electronically Signed On 03-14-2025 12:08:19 PDT by Thad Apple Please click the below link to view image of tracing.
[2025-03-10 07:50] VITALS: PULSE 89; RESP 14; O2SAT 95
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
[2025-03-10 19:45] VITALS: RESP 15; O2SAT 97
[2025-03-10 19:47] LABS: Opiate Scree,Urine Pos (NEGATIVE)
[2025-03-10 19:57] LABS: Amphetamine Screen, Urine Pos (NEGATIVE); Barbiturate Scree,Urine Neg (NEGATIVE); Benzodiazephine Screen, Urine Neg (NEGATIVE); Cannabinoid Screen, Urine Pos (NEGATIVE); Cocaine Screen, Urine Neg (NEGATIVE); Phencyclidine Screen, Urine Neg (NEGATIVE)
[2025-03-11 12:01] LABS: Chloride 102 mmol/L (98-107); Potassium 4.3 mmol/L (3.5-5.1)
[2025-03-11 12:02] LABS: Anion Gap 7 (5-15); Carbon Dioxide 22 mmol/L (20-31)
[2025-03-11 12:03] LABS: Calcium 9.1 mg/dL (8.7-10.4)
[2025-03-11 12:05] LABS: Sodium 131 mmol/L (136-145)
[2025-03-11 12:08] LABS: BUN/Creatinine Ratio 23.1 (10.0-20.0); Blood Urea Nitrogen 18 mg/dL (9-23)
[2025-03-11 12:10] LABS: Glucose 116 mg/dL (74-106)
[2025-03-11 19:41] VITALS: PULSE 112; RESP 14; O2SAT 99
[2025-03-12] MEDS: LORazepam 2MG/ML-1ML VIAL IM ONE (18:39)
[2025-03-12] MEDS: LORazepam 2MG/ML-1ML VIAL ONE (19:23)
[2025-03-12 19:56] VITALS: PULSE 80; RESP 16; O2SAT 96
[2025-03-14 02:20] VITALS: PULSE 81; RESP 16; O2SAT 99
[2025-03-14] MEDS: HALOPERIDOL LACTATE 5 MG/ML INJ VIAL IM ONE (04:05)
[2025-03-14] MEDS: diphenhdrAMINE HCL 50 MG/1 ML VL IM ONE (04:05)
[2025-03-14] MEDS: LORazepam 2MG/ML-1ML VIAL IM ONE (10:18)
[2025-03-14] MEDS: LORazepam 2MG/ML-1ML VIAL ONE (10:18)
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
[2025-03-14 22:11] VITALS: BP 124/68; PULSE 87; RESP 18; TEMP 98.1; O2SAT 97
== END 2025-03-14 23:02 | disposition home or self-care (01) ==
LOC: EDSEX 13:25 → ER 13:25 → EDBD 13:25 → ER 03-14 23:02
DX: F20.9 Schizophrenia, unspecified (principal); G92.9 Unspecified toxic encephalopathy; E87.1 Hypo-osmolality and hyponatremia; F41.0 Panic disorder [episodic paroxysmal anxiety]; I25.2 Old myocardial infarction; I50.9 Heart failure, unspecified; Z79.84 Long term (current) use of oral hypoglycemic drugs; Z79.899 Other long term (current) drug therapy; Z90.49 Acquired absence of other specified parts of digestive tract; W18.39XA Other fall on same level, initial encounter; Y93.89 Activity, other specified; Y92.89 Other specified places as the place of occurrence of the external cause; Y99.8 Other external cause status
CPT/HCPCS: 36415; 80048; 80307; 80320; 85025; 93005; 96360; 96372; 99291; J1200; J1630; J2060; J7030

== ENCOUNTER 2025-04-12 08:29 | Emergency (ER) | payer OTHER ==
[~2025-04-12] VITALS: Ht 167.6 cm; Wt 82.0 kg
--- NOTE | 2025-04-12 08:43 | ED.PDOC ---
HPI Comments HPI: This is a 39 year old male CARMEN presenting to the ED with chief complaint of syncope. EMS reports that the patient was witnessed by family this morning to be out for a walk in front of their home when all of a sudden, he collapsed on the driveway, falling face first into the ground. EMS relays that the patient was able to answer questions on scene, but was noticeably difficult to arouse. EMS states patient is able to follow commands and is hypotensive at scene, BP be ing unreadable on their machine. Patient notes that he is not sure that he fell and denies any drug use. Patient noted to have abrasion and bleeding to the nose and left knee. Patient denies any chest pain, SOB, dizziness, N/V/D, or headache. 1115: Mother at bedside reports patient had been recently admitted to [facility] a month ago for similar symptoms of weakness and syncope, only being discharged 9 days ago. Mother relays that the patient is supposed to be walking with a walker, but did not when his knees gave out and fell forward. 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 Initial Vitals BP: 88/44 HR: 68 RR: 16 O2: 100% Temp: 97.7F Past Medical History: Developmental Delays, CHF, Schizophrenia, HTN Past Surgical History: Cholecystectomy Social History: Denies ETOH, smoking, Previous Cocaine and Marijuana use Medications: Risperidone, Lasix, Metoprolol Allergies: NKDA REVIEW OF SYSTEMS: Review of system is limited given the patient's altered mental status and hypotensive state. History obtained from EMS only. CONSTITUTIONAL: Denies acute: fever, diaphoresis, chills, HEAD: Denies acute: headache, photophobia Eyes: Denies acute: Double vision, vision loss, eye pain, eye discharge. EARS: Denies acute: tinnitus, hearing loss, ear discharge, ear pain, THROAT: Denies acute: sore throat, swelling, difficulty swallowing , pain with swallowing, change in voice. NECK: Denies acute: neck pain, neck swelling, stiff neck. HEART: Denies acute : chest pain, palpitations, LUNGS: Denies acute: SOB, wheezing, cough, hemoptysis ABDOMEN: Denies acute: abdominal pain, Nausea, Vomiting, diarrhea, melena , hematemesis, hematochezia SKIN: Denies acute: rash, redness, lesions, itchiness. EXTREMITIES: Denies acute: calf pain, numbness, tingling, weakness, denies pain in extremity. Denies acute: Low back pain. Neuro: Denies acute: focal neurological deficit, motor or sensory focal neurological deficit, tremors, seizure like activity, loss of bowel or bladder function, cauda equina like symptoms. : Denies acute: dysuria, hematuria, flank pain, increase in urinary frequency. PSYCH: Denies acute: hallucination, suicidal ideation, homicidal ideation. PHYSICAL EXAM: General: ----[id number]----acute distress, awake and alert. Head: normocephalic, atraumatic. Neck: supple, trachea is midline, no swelling. Cervical spine: Palpation of the posterior midline of the cervical spine reveals no focal swelling, erythema, focal tenderness to palpation. Patient has normal range of motion. Throat: Normal phonation. Eyes:, no erythema, no purulent discharge, no proptosis, no icterus. Heart: regular rate, regular rhythm, no significant murmur appreciated. Lungs: no apparent respiratory distress, No wheezing, no rhonchi, no crackles. No stridors Clear to auscultation bilaterally. Abdomen: non tender to palpation, slightly distended, soft, no guarding, no rebound, + bowel sounds. Neuro: Awake, Alert, oriented to name, follows commands. Appears very lethargic and weak. Skin: no petechia, no purpura, no cyanosis, non-pale, not jaundice. Lower extremities: --3/4 bilateral - Pitting edema no deformity, no focal swelling, no calf TTP. Makes eye contact. moves all four extremities. Face: no apparent facial droop. Noted evidence of dried blood from the nostril and dried blood inside the mouth. No apparent laceration or deformity or active bleeding. Stroke: No pronator drift. Symmetrical filing writer muscle strength b/l PERRLA, EOM-I No nystagmus. No nuchal rigidity, Kernig's sign, Brudzinski's sign, no meningeal signs. C- collar was applied given the patient's history of recent fall/trauma ED COURSE: AT THIS TIME 11:33 A.M.. CASE DISCUSSED WITH [facility]. I 1ST SPOKE WITH THE ER PHYSICIAN WHO DEFERRED THE ACCEPTANCE TO THE TRAUMA SURGEON. I LATER SPOKE WITH THE TRAUMA SURGEON DR. MACIAS. SHE SAID SHE IS HAPPY TO EVALUATE THE PATIENT BUT SHE IS NOT CLEARED THE PATIENT MEETS TRAUMA CRITERIA EXACTLY BASED ON THE STORY. THE ER PHYSICIAN ACCEPTED THE PATIENT TO BE TRANSFERRED TO THE ER DR. LOFTON. 1150: Patient is producing urine through Fuentes catheter. Chief Complaint: Syncope Time Seen by MD: 08:39 Primary Care Provider: unknown Reviewed Notes: Medications, Allergies Allergies: Coded Allergies: NO KNOWN ALLERGIES (Unverified , 04/02/19) Home Meds Active Scripts Sacubitril-Valsartan (Entresto 24-26 mg) 1 Tab Tab, 0.5 TAB PO BID, #30 TAB 5 Refills Prov:ZACHARY GANDHI MD 03/03/25 Olanzapine (OLANZAPINE) 5 Mg Tab, 5 MG PO HS, #30 TAB 5 Refills Prov:ZACHARY GANDHI MD 03/03/25 Empagliflozin (Jardiance) 10 Mg Tab, 10 MG PO DAILY, #30 TAB 5 Refills Prov:ZACHARY GANDHI MD 03/03/25 Apixaban Base (ELIQUIS) 5 Mg Tab, 5 MG PO BID, #60 TAB 5 Refills Prov:ZACHARY GANDHI MD 03/03/25 Aripiprazole (Abilify) 2 Mg Tab, 2.5 TAB PO DAILY for 30 Days, #75 TAB 2 Refills Prov:YASSINE RABAGO MD 02/13/25 Levofloxacin Hemihydrate (LEVOFLOXACIN) 500 Mg Tab, 1 TAB PO DAILY for 7 Days, #7 TAB Prov:INNA COREA MD 02/02/25 Reported Medications Apixaban Base (ELIQUIS) 5 Mg Tab, 1 TAB PO BID for 83 Days, #180 02/01/25 Metoprolol Succinate (Metoprolol Succinate Er) 25 Mg Tab, 1 TAB PO DAILY 01/31/25 Bumetanide (Bumetanide) 2 Mg Tab, 0.5 TAB PO BID 01/31/25 Dapagliflozin Propanediol (Farxiga) 10 Mg Tab, 1 TAB PO DAILY 01/31/25 Spironolactone (Spironolactone) 25 Mg Tab, 0.5 TAB PO DAILY 01/31/25 Information Source: Patient, Emergency Med Personnel Mode of Arrival: EMS Was a procedure done? Was a procedure done?: No CP Differential Dx Differential Diagnosis: N/A Comment DDX include CVA, TGA, cerebellar ischemia/infarct, carotid stenosis, Intracranial mass/infection/bleed, encephalopathy, electrolyte abnormality, thyroid disease, hydrocephalus, hypoglycemia, drug toxicity, cardiac arrhythmia, seizure, infection in the elderly, Hyperammonemia., kidney failure., sepsis. As far as the syncope and collapse: Spinal injury, intracranial injury, stroke, facial injury. X-Ray, Labs, Meds, VS Vital Signs Date Time Temp Pulse Resp B/P (MAP) Pulse Ox O2 Delivery O2 Flow Rate FiO2 04/12/25 12: 98.4 84 18 104/75 (85) 98 98.4 04/12/25 11:41 94/65 04/12/25 10:50 94 14 85/67 (73) 96 04/12/25 10:15 95/62 04/12/25 09:37 100 24 96 Nasal Cannula* 5 40 04/12/25 08:50 97.7 100 23 94/66 (75) 96 97.7 04/12/25 08:40 97.7 68 16 88/44 (59) 100 97.7 Lab Test 04/12/25 11:47 04/12/25 11:17 04/12/25 10:45 04/12/25 10:07 Range/Units Troponin I High Sensitivity 29 </=54 ng/L Urine Color Dark-yellow Yellow Urine Clarity Turbid H Clear Urine pH 5.5 5.0-9.0 Urine Specific [place] 1.018 1.001-1.035 Urine Protein 1+ H Negative Urine Ketones Negative Negative Urine Blood Trace H Negative /uL Urine Nitrite Negative Negative Urine Bilirubin 1+ Negative Urine Urobilinogen 8 H Negative mg/dL Urine Leukocyte Esterase Negative Negative /uL Urine RBC 4 0 - 3 /hpf Urine Microscopic WBC 4 H 0-3 /HPF Urine Squamous Epithelial Cells Few <5 /hpf Urine Bacteria None seen None Seen /hpf Urine Hyaline Casts Mod 0 - 2 /lpf Urine Mucus Few None Seen Urine Glucose Normal Normal mg/dL Urine Opiates Screen Neg NEGATIVE Urine Fentanyl Screen Neg NEGATIVE Urine Barbiturates Screen Neg NEGATIVE Urine Phencyclidine Screen Neg NEGATIVE Urine Amphetamines Screen Neg NEGATIVE Urine Benzodiazepines Screen Neg NEGATIVE Urine Cocaine Screen Neg NEGATIVE Urine Cannabinoids Screen Neg NEGATIVE Lactic Acid Level 4.7 *H 0.4-2.0 mmol/L POC Glucose 162 H 70-106 mg/dl Test 04/12/25 09:49 04/12/25 08:47 Range/Units Creatine Kinase 107 46-171 U/L Troponin I High Sensitivity 37 35 </=54 ng/L White Blood Count 12.3 H 4.4-10.8 10^3/uL Red Blood Count 4.15 L 4.5-5.90 10^6/uL Hemoglobin 13.6 13.5-17.5 g/dL Hematocrit 41.2 41.0-53.0 % Mean Corpuscular Volume 99.2 80.0-100.0 fL Mean Corpuscular Hemoglobin 32.8 H 28.0-32.0 pg Mean Corpuscular Hemoglobin Concent 33.1 32.0-36.0 g/dL Red Cell Distribution Width 17.6 H 11.8-14.3 % Platelet Count 218 140-450 10^3/uL Mean Platelet Volume 10.3 6.9-10.8 fL Neutrophils (%) (Auto) 37.0-80.0 % Lymphocytes (%) (Auto) 10.0-50.0 % Monocytes (%) (Auto) 0.0-12.0 % Basophils (%) (Auto) 0.0-2.0 % Neutrophils # (Auto) 1.6-8.6 10 ^3/uL Lymphocytes # (Auto) 0.4-5.4 10 ^3/uL Monocytes # (Auto) 0-1.3 10 ^3/uL Differential Total Cells Counted 100.0 100 Neutrophils % (Manual) 90 H 37.0-80.0 Band Neutrophils % (Manual) 2 Lymphocytes % (Manual) 3 L 10.0-50.0 Monocytes % (Manual) 5 0-12 Eosinophils % (Manual) 0 0-7 Basophils % (Manual) 0 0.0-2.0 Metamyelocytes % (manual) 0 Myelocytes % (Manual) 0 Promyelocytes % (Manual) 0 Blast Cells % (Manual) 0 Reactive Lymphocytes 0 Platelet Estimate Adequate Red Blood Cell Morphology Normal Prothrombin Time 21.0 H 9.3-11.8 sec Prothrombin Time INR 2.14 H 0.9-1.15 Activated Partial Thromboplast Time 28.8 24.5-34.5 SEC Sodium Level 126 L 136-145 mmol/L Potassium Level 5.5 H 3.5-5.1 mmol/L Chloride Level 95 L 98-107 mmol/L Carbon Dioxide Level 16 L 20-31 mmol/L Anion Gap 15 5-15 Blood Urea Nitrogen 31 H 9-23 mg/dL Creatinine 1.37 H 0.700-1.30 mg/dL Glomerular Filtration Rate Calc 68 >90 mL/min BUN/Creatinine Ratio 22.6 H 10.0-20.0 Serum Glucose 152 H 74-106 mg/dL Lactic Acid Level 5.5 *H 0.4-2.0 mmol/L Calcium Level 8.6 L 8.7-10.4 mg/dL Magnesium Level 2.3 1.6-2.6 mg/dL Total Bilirubin 5.0 H 0.2-1.0 mg/dL Aspartate Amino Transferase (AST) 261 H 0-34 U/L Alanine Aminotransferase (ALT) 250 H 7-40 U/L Alkaline Phosphatase 141 H 46-116 U/L Ammonia 36 H 11-32 umol/L B-Type Natriuretic Peptide 3608.11 0-100 pg/mL Total Protein 6.4 5.7-8.2 g/dL Albumin 3.9 3.2-4.8 g/dL Plasma/Serum Blood Alcohol 5.8 <10 mg/dL [place] [address] Ph: [phone] DIAGNOSTIC IMAGING Diagnostic Imaging Report : [id number] Signed PATIENT: DOTTIE KENNEDYCCT: [id number] UNIT: [id number] : 1985 LOC: ER ROOM / BED: / AGE / SEX: 39 / M ADM STATUS: REG ER SERVICE 0834 ORDERING PHYSICIAN: STEVEN RIVERA DO PROCEDURE(s): CXRP - CHEST PORTABLE REASON: ALOC ORDER NUMBER(s): [id number], ACCESSION NUMBER(s): [id number] EXAM: XY CHEST PORTABLE Indication: ALOC Technique: Single frontal view of the chest was obtained Comparison: XY CHEST PORTABLE on DOS: 02/28/25, XY CHEST PORTABLE on DOS: 02/09/25, XY CHEST PORTABLE on DOS: 01/30/25, XY CHEST XRAY 1 VIEW on DOS: 09/06/24, XY CHEST PORTABLE on DOS: 09/05/24 FINDINGS: Lines and Tubes: None Lungs: No focal consolidation. Pleura: No effusion. No pneumothorax. Cardiomediastinal contours: Cardiomegaly. Bones: No acute osseous abnormality. IMPRESSION: Cardiomegaly. No acute cardiopulmonary disease. ATED BY: JAILENE DURBIN MD DICTATED DATE/TIME: 04/12/25928 SIGNED BY: JAILENE DURBIN MD SIGNED DATE/TIME: 04/12/25928 CC: [place] [id number] Ph: [phone] DIAGNOSTIC IMAGING Diagnostic Imaging Report : [id number] Signed PATIENT: DOTTIE KENNEDYCCT: [id number] UNIT: [id number] : 1985 LOC: ER ROOM / BED: / AGE / SEX: 39 / M ADM STATUS: REG ER SERVICE 3 ORDERING PHYSICIAN: STEVEN RIVERA DO PROCEDURE(s): HWOCT - HEAD WITHOUT CONTRAST REASON: FALL TRAUMA ORDER NUMBER(s): [id number], ACCESSION NUMBER(s): [id number] EXAM: CT HEAD WITHOUT CONTRAST INDICATION: FALL TRAUMA TECHNIQUE: CT of the head without intravenous contrast. Radiation Dose : 1. Head: CT Dose: CTDI volume is 57.86 mGy. Dose-length product is 1591.73 mGy*cm The dose indicators for CT are the volume Computed Tomography (CT) Dose Index ( CTDIvol) and the Dose Length Product (DLP), and are measured in units of mGy and mGy-cm, respectively. These indicators are not patient dose, but values generated from the CT scanner acquisition factors. The report includes radiation exposure data for exposures received during this examination. COMPARISON: None FINDINGS: There is no evidence of acute intracranial hemorrhage, extra-axial collection, mass effect, midline shift, herniation or hydrocephalus. The ventricles, sulci and cisterns are age appropriate. The martinez-white differentiation is intact. Patchy periventricular and subcortical white matter hypoattenuation is n onspecific but may be related to small vessel ischemic disease. Minimal mucosal thickening of the right maxillary sinus. Trace air is seen in the left superficial face. The surrounding soft tissues and osseous structures are unremarkable. IMPRESSION: 1. No acute intracranial abnormality. Radiation optimization: All CT scans at this facility use at least one of these dose optimization techniques: automated exposure control mA and/or kV adjustment per patient size (includes targeted exams where dose is matched to clinical indication) or iterative reconstruction. ATED BY: HENRIK ROMERO MD DICTATED DATE/TIME: 04/12/25929 SIGNED BY: HENRIK ROMERO MD SIGNED DATE/TIME: 04/12/25929 CC: [place] [id number] Ph: [phone] DIAGNOSTIC IMAGING Diagnostic Imaging Report : [id number] Signed PATIENT: DOTTIE KENNEDYCCT: [id number] UNIT: [id number] : 1985 LOC: ER ROOM / BED: / AGE / SEX: 39 / M ADM STATUS: REG ER SERVICE 3 ORDERING PHYSICIAN: STEVEN RIVERA DO PROCEDURE(s): FAC2C - MAXILLOFACIAL WITHOUT REASON: FALL TRAUMA ORDER NUMBER(s): [id number], ACCESSION NUMBER(s): [id number] HISTORY: 39-year-old male fell, facial trauma. TECHNIQUE: Nonenhanced axial images through the facial bones with coronal and sagittal MPR. Radiation optimization: All CT scans at this facility use at least one of these dose optimization techniques: automated exposure control mA and/or kV adjustment per patient size (includes targeted exams where dose is matched to clinical indication) or iterative reconstruction. Radiation Dose Information: CT Dose: CTDI volume is 66.97 mGy. Dose-length product is 1226.13 mGy*cm COMPARISON: None FINDINGS: No acute displaced fractures are identified about the facial bones. Motion artifact simulates fractures of the right orbital floor and right nasal bone. There is mild mucosal thickening of the bilateral maxillary sinuses. There is a small mucous retention cyst in the right sphenoid sinus. The nasal septum is mildly deviated to the right inferiorly. There are multiple dental caries. The mastoid air cells and middle ear spaces are clear. There are small pockets of gas in the soft tissues of the left infratemporal fossa, without evidence of fracture of the adjacent bones, and without evidence of penetrating open wound. Additionally, there are small pockets of gas within vasculature of the bilateral submandibular regions, superficial to the left mandibular angle, left pre maxillary region, and left cavernous sinus. There is palatine tonsillar hypertrophy without significant airway narrowing. IMPRESSION: 1. No acute facial bone fracture. 2. Mild paranasal sinus disease. 3. Gas pockets within the soft tissues of the left infratemporal fossa which may be due to soft tissue injury. There is no evidence of adjacent fracture or penetrating skin wound. There is also gas within vascular structures bilaterally. 4. Multiple dental caries. Recommend outpatient dental consultation. ATED BY: SATHYA WOODWARD MD DICTATED DATE/TIME: 04/12/25938 SIGNED BY: SATHYA WOODWARD MD SIGNED DATE/TIME: 04/12/25938 CC: [place] [id number] Ph: [phone] DIAGNOSTIC IMAGING Diagnostic Imaging Report : [id number] Signed PATIENT: DOTTIE KENNEDYCCT: [id number] UNIT: [id number] : 1985 LOC: ER ROOM / BED: / AGE / SEX: 39 / M ADM STATUS: REG ER SERVICE 0834 ORDERING PHYSICIAN: STEVEN RIVERA DO PROCEDURE(s): CS2 - CERVICAL WITHOUT CONTRAST REASON: FALL TRAUMA ORDER NUMBER(s): [id number], ACCESSION NUMBER(s): [id number] EXAM: CT CERVICAL WITHOUT CONTRAST INDICATION: FALL TRAUMA EXAM DATE: 04/12/2025 08:54 AM COMPARISON: None TECHNIQUE: Multiple axial CT images of the cervical spine were obtained using bone algorithm. Axial and coronal reformatting was done. Bone and soft tissue windows were reviewed. Radiation Dose Information: CT Dose: CTDI volume is 22 mGy. Dose-length product is 531 mGy*cm FINDINGS: The cervical alignment is intact. No acute cervical spine fracture is identified. The vertebral body heights are intact. No suspicious osseous lesions are identified. No significant degenerative changes are identified. There is no prevertebral soft tissue swelling. IMPRESSION: 1. No evidence of acute cervical spine fracture or traumatic malalignment. 2. All CT scans at this medical facility are performed using dose modulation techniques as appropriate to a performed exam including the following: Automated exposure control was utilized; adjustment of the MA and/or KV according to patient size; and use of iterative reconstruction technique. ATED BY: HENRIK ROMERO MD DICTATED DATE/TIME: 04/12/25939 SIGNED BY: HENRIK ROMERO MD SIGNED DATE/TIME: 04/12/25939 CC: FINDINGS: CT abdomen: The heart is enlarged. There is a small pericardial effusion. There are small right and trace left pleural effusions. There are ground-glass opacities in the bilateral lower lobes, greater on the right. There is moderate volume upper abdominal ascites. The gallbladder is surgically absent. The liver measures 19 cm longitudinal. The spleen measures 12 cm longitudinal. The noncontrast pancreas, kidneys, and adrenal glands are unremarkable. No abdominal aortic aneurysm. CT pelvis: No abnormal bowel dilatation or free air. There is moderate to large volume pelvic ascites. There is fecal retention in the colon. The appendix does not appear dilated or inflamed. Fuentes catheter is in the urinary bladder. There is diffuse subcutaneous edema. IMPRESSION: 1. Cardiomegaly, bilateral pleural effusions, and bilateral lower lobe ground- glass opacities which may be due to CHF and/or pneumonia. 2. Moderate to large volume abdominopelvic ascites. There is diffuse subcutaneous edema, this is suggestive of anasarca. 3. Postoperative changes of cholecystectomy. 4. Hepatomegaly and borderline splenomegaly. 5. Fecal retention in the colon suggestive of constipation. 6. No evidence of bowel obstruction, acute appendicitis, or other acute process in the abdomen or pelvis. Time of 1ST Reevaluation: 09:39 Reevaluation 1ST: Unchanged Time of 2ND Reevaluation: 10:11 (C-collar was removed and C-spine cleared. Nexus criteria.Patient has no tenderness to palpation on posterior spine. Normal range of motion.) Time of 3RD Reevaluation: 10:48 (Medicine team approached me at this time and asked if we can transfer the patient to the Trauma facility given the maxillofacial findings of air. We started reaching out to Trauma facility at this time.) Patient Education/Counseling: Diagnosis, Treatment Family Education/Counseling: No Family Present Comments Patient presented with the above HPI.---fall trauma and altered mental status---workup was initiated. patient was found with the above mentioned diagnosis. the following medications were ordered: please refer to order lists of meds and tests obtained by myself Dr. Rivera. Patient ED course and VS have been stabilized. Patient has been reassessed in the ED and remained in a stable condition. Pertinent incidental findings were discussed with the patient and/or family. Patient/family voices understanding and is agreeable with plan. Patient has been observed in the ED adequate length of time to insure improvement/stability. Escalation of care considered: Consideration of escalation to observation or admission Patient was given Lasix given his history of volume overload and CHF. Patient was given antibiotics given his CT scan findings and possible sepsis. Patient was given fluids because he was hypotensive. Patient was transferred to higher level of care for further evaluation and treatment of their presentation. Patient was transferred by flight. All the reports of any imaging studies that were ordered by myself were reviewed by myself. Departure 1 Departure Time of Disposition: 08:55 Impression: Primary Impression: Hypotension Additional Impressions: Altered level of consciousness Facial injury Hyponatremia Elevated lactic acid level Elevated LFTs CHF exacerbation Abnormal finding on CT scan Disposition: ADMITTED INPATIENT Admit to: [facility] Condition: Guarded Discharged With: Self Critical Care Note Critical Care Time?: Yes (>90min-critical care time only) Heart Score Heart Score: Heart Score Response (Comments) Value History Moderate Suspicious 1 EKG Normal 0 Age <45 0 Risk Factors 1 or 2 risk factors 1 Troponin Normal limit 0 Total 2 I personally scribed for STEVEN RIVERA DO ([email or web address]) on 04/12/25 at 08:43. Electronically submitted by Damon Fernandez ([email or web address]). I personally scribed for STEVEN RIVERA DO ([email or web address]) on 04/12/25 at 09:34. Electronically submitted by Damon Fernandez ([email or web address]). I personally scribed for STEVEN RIVERA DO ([email or web address]) on 04/12/25 at 09:37. Electronically submitted by Damon Fernandez ([email or web address]). I personally scribed for STEVEN RIVERA DO ([email or web address]) on 04/12/25 at 09:45. Electronically submitted by Damon Fernandez ([email or web address]). I personally scribed for MIGUELSTEVEN WILLIAMSON DO (DVFARMI) on 04/12/25 at 09:46. Electronically submitted by Damon Fernandez ([email or web address]). I personally scribed for STEVEN RIVERA DO ([email or web address]) on 04/12/25 at 11:24. Electronically submitted by Damon Fernandez ([email or web address]). I personally scribed for STEVEN RIVERA DO ([email or web address]) on 04/12/25 at 11:54. Electronically submitted by Damon Fernandez ([email or web address]). I personally scribed for STEVEN RIVERA DO ([email or web address]) on 04/12/25 at 12:50. Electronically submitted by Damon Fernandez ([email or web address]). STEVEN RIVERA DO Apr 12, 2025 08:43
[2025-04-12] MEDS: NALOXONE HCL 1MG/ML 2ML SYRINGE IV ONE (08:46)
[2025-04-12 09:12] LABS: Hematocrit 41.2 % (41.0-53.0); Hemoglobin 13.6 g/dL (13.5-17.5); Mean Corpuscular Hemoglobin 32.8 pg (28.0-32.0); Mean Corpuscular Hgb Conc. 33.1 g/dL (32.0-36.0); Mean Corpuscular Volume 99.2 fL (80.0-100.0); Platelet Count (auto) 218 10^3/uL (140-450); Red Blood Cells 4.15 10^6/uL (4.5-5.90); Red Cell Distribution Width 17.6 % (11.8-14.3); White Blood Cell 12.3 10^3/uL (4.4-10.8)
[2025-04-12 09:20] LABS: Basophils % (manual) 0 (0.0-2.0); Blast Cells 0; Eosinophils % (manual) 0 (0-7); Metamyelocytes % 0; Myelocytes % 0; Promyelocytes % 0; Reactive Lymphocytes 0
--- NOTE | 2025-04-12 09:31 | DVH ---
EXAM: XY CHEST PORTABLE Indication: ALOC Technique: Single frontal view of the chest was obtained Comparison: XY CHEST PORTABLE on DOS: 02/28/25, XY CHEST PORTABLE on DOS: 02/09/25, XY CHEST PORTABLE o n DOS: 01/30/25, XY CHEST XRAY 1 VIEW on DOS: 09/06/24, XY CHEST PORTABLE on DOS: 09/05/24 FINDINGS: Lines and Tubes: None Lungs: No focal consolidation. Pleura: No effusion. No pneumothorax. Cardiomediastinal contours: Cardiomegaly. Bones: No acute osseous abnormality. IMPRESSION: Cardiomegaly. No acute cardiopulmonary disease.
--- NOTE | 2025-04-12 09:33 | DVH ---
EXAM: CT HEAD WITHOUT CONTRAST INDICATION: FALL TRAUMA TECHNIQUE: CT of the head without intravenous contrast. Radiation Dose : 1. Head: CT Dose: CTDI volume is 57.86 mGy. Dose-length product is 1591.73 mGy*cm The dose indicators for CT are the volume Computed Tomography (CT) Dose Index (CTDIvol) and the Dose Length Product (DLP), and are measured in units of mGy and mGy-cm, respectively. These indicators are not patient dose, but values generated from the CT scanner acquisition factors. The report includes radiation exposure data for exposures received during this examination. COMPARISON: None FINDINGS: There is no evidence of acute intracranial hemorrhage, extra-axial collection, mass effect, midline s hift, herniation or hydrocephalus. The ventricles, sulci and cisterns are age appropriate. The martinez-white differentiation is intact. Patchy periventricular and subcortical white matter hypoattenuation is nonspecific but may be related to small vessel ischemic disease. Minimal mucosal thickening of the right maxillary sinus. Trace air is seen in the left superficial fa ce. The surrounding soft tissues and osseous structures are unremarkable. IMPRESSION: 1. No acute intracranial abnormality. Radiation optimization: All CT scans at this facility use at least one of these dose optimization soniya hniques: automated exposure control mA and/or kV adjustment per patient size (includes targeted exam s where dose is matched to clinical indication) or iterative reconstruction.
[2025-04-12 09:34] LABS: Platelet Estimate Adequate
[2025-04-12 09:35] LABS: Band Neutrophils % (manual) 2; Lymphocytes % (manual) 3 (10.0-50.0); Monocytes % (manual) 5 (0-12)
[2025-04-12 09:36] LABS: RBC Morphology Normal
[2025-04-12 09:37] VITALS: PULSE 100; RESP 24; O2SAT 96
--- NOTE | 2025-04-12 09:42 | DVH ---
HISTORY: 39-year-old male fell, facial trauma. TECHNIQUE: Nonenhanced axial images through the facial bones with coronal and sagittal MPR. Radiation optimization: All CT scans at this facility use at least one of these dose optimization techniques: automated exposure control mA and/or kV adjustment per patient size (includes targeted exams where d ose is matched to clinical indication) or iterative reconstruction. Radiation Dose Information: CT D ose: CTDI volume is 66.97 mGy. Dose-length product is 1226.13 mGy*cm COMPARISON: None FINDINGS: No acute displaced fractures are identified about the facial bones. Motion artifact simulates fractur es of the right orbital floor and right nasal bone. There is mild mucosal thickening of the bilateral maxillary sinuses. There is a small mucous retention cyst in the right sphenoid sinus. The nasal se ptum is mildly deviated to the right inferiorly. There are multiple dental caries. The mastoid air ce lls and middle ear spaces are clear. There are small pockets of gas in the soft tissues of the left i nfratemporal fossa, without evidence of fracture of the adjacent bones, and without evidence of penet rating open wound. Additionally, there are small pockets of gas within vasculature of the bilateral s ubmandibular regions, superficial to the left mandibular angle, left pre maxillary region, and left cavernous sinus. There is palatine tonsillar hypertrophy without significant airway narrowing. IMPRESSION: 1. No acute facial bone fracture. 2. Mild paranasal sinus disease. 3. Gas pockets within the soft tissues of the left infratemporal fossa which may be due to soft tissu e injury. There is no evidence of adjacent fracture or penetrating skin wound. There is also gas with in vascular structures bilaterally. 4. Multiple dental caries. Recommend outpatient dental consultation.
--- NOTE | 2025-04-12 09:42 | DVH ---
EXAM: CT CERVICAL WITHOUT CONTRAST INDICATION: FALL TRAUMA EXAM DATE: 04/12/2025 08:54 AM COMPARISON: None TECHNIQUE: Multiple axial CT images of the cervical spine were obtained using bone algorithm. Axial a nd coronal reformatting was done. Bone and soft tissue windows were reviewed. Radiation Dose Information: CT Dose: CTDI volume is 22 mGy. Dose-length product is 531 mGy*cm FINDINGS: The cervical alignment is intact. No acute cervical spine fracture is identified. The vertebral body heights are intact. No suspicious osseous lesions are identified. No significant degenerative changes are identified. There is no prevertebral soft tissue swelling. IMPRESSION: 1. No evidence of acute cervical spine fracture or traumatic malalignment. 2. All CT scans at this medical facility are performed using dose modulation techniques as appropriat e to a performed exam including the following: Automated exposure control was utilized; adjustment of the MA and/or KV according to patient size; and use of iterative reconstruction technique.
[2025-04-12] MEDS: cefTRIAXone 1GM/50ML D5W 50 ML IV ONE (10:15)
[2025-04-12] MEDS: FUROSEMIDE 20 MG/2 ML VIAL IV ONE (10:15)
[2025-04-12 10:33] LABS: Lactic Acid w/Reflex 5.5 mmol/L (0.4-2.0)
[2025-04-12 11:06] LABS: Albumin 3.9 g/dL (3.2-4.8); Anion Gap 15 (5-15); BUN/Creatinine Ratio 22.6 (10.0-20.0); Magnesium 2.3 mg/dL (1.6-2.6); Total Protein 6.4 g/dL (5.7-8.2)
[2025-04-12 11:08] LABS: Alanine Aminotransferase 250 U/L (7-40); Alkaline Phosphatase 141 U/L (46-116); Aspartate Aminotransferase 261 U/L (0-34); Blood Urea Nitrogen 31 mg/dL (9-23); Calcium 8.6 mg/dL (8.7-10.4); Carbon Dioxide 16 mmol/L (20-31); Chloride 95 mmol/L (98-107); Glucose 152 mg/dL (74-106); Potassium 5.5 mmol/L (3.5-5.1); Sodium 126 mmol/L (136-145)
[2025-04-12 11:26] LABS: Urine Bacteria None Seen /hpf (None Seen)
[2025-04-12] MEDS: FUROSEMIDE 40 MG/4 ML VIAL IV ONE (11:41)
[2025-04-12] MEDS: SODIUM CHLORIDE 0.9% 1,000 ML IV ONE (11:41)
[2025-04-12] MEDS: SODIUM BICARB 8.4% 50Meq/50ml SYR Vial IV ONE (11:42)
[2025-04-12 11:48] LABS: INR 2.14 (0.9-1.15); Partial Thromboplastin Time 28.8 SEC (24.5-34.5)
[2025-04-12 11:49] LABS: Urine Blood TRACE /uL (Negative); Urine Clarity Turbid (Clear); Urine Color Dark-Yellow (Yellow); Urine Hyaline Cast MOD /lpf (0 - 2); Urine Mucus FEW (None Seen); Urine Protein, UAD 1+ (Negative); Urine Specific Gravity 1.018 (1.001-1.035); Urine Squamous Epithelial Cell FEW /hpf (<5); Urine Urobilinogen 8 mg/dL (Negative); Urine WBC 4 /HPF (0-3); Urine pH 5.5 (5.0-9.0)
[2025-04-12 12:25] VITALS: BP 104/75; PULSE 84; RESP 18; TEMP 98.4; O2SAT 98
--- NOTE | 2025-04-12 12:35 | DVH ---
EXAM: CT CT AB PEL WO CON-NO ORAL OR IV HISTORY: ELEVATED LFT COMPARISON: CT CT AB PEL WO CON-NO ORAL OR IV on DOS: 02/09/25, CT CT AB PEL WO CON-NO ORAL OR IV on D OS: 01/30/25 TECHNIQUE: Helical CT images of the abdomen and pelvis were performed without IV contrast. Sagittal a nd coronal reformatted images were obtained. This CT exam was performed using one or more of the foll owing dose reduction techniques: Automated exposure control, adjustment of the mA and/or kv according to patient size, or the use of iterative reconstruction techniques. Radiation Dose: Abdomen/Pelvis: CTDIvol 19.61 mGy, DLP 1053.2 mGy*cm. FINDINGS: CT abdomen: The heart is enlarged. There is a small pericardial effusion. There are small right and trace left pleural effusions. There are ground-glass opacities in the bilateral lower lobes, greate r on the right. There is moderate volume upper abdominal ascites. The gallbladder is surgically abse nt. The liver measures 19 cm longitudinal. The spleen measures 12 cm longitudinal. The noncontrast pa ncreas, kidneys, and adrenal glands are unremarkable. No abdominal aortic aneurysm. CT pelvis: No abnormal bowel dilatation or free air. There is moderate to large volume pelvic ascites . There is fecal retention in the colon. The appendix does not appear dilated or inflamed. Fuentes cath eter is in the urinary bladder. There is diffuse subcutaneous edema. IMPRESSION: 1. Cardiomegaly, bilateral pleural effusions, and bilateral lower lobe ground-glass opacities which m ay be due to CHF and/or pneumonia. 2. Moderate to large volume abdominopelvic ascites. There is diffuse subcutaneous edema, this is sugg estive of anasarca. 3. Postoperative changes of cholecystectomy. 4. Hepatomegaly and borderline splenomegaly. 5. Fecal retention in the colon suggestive of constipation. 6. No evidence of bowel obstruction, acute appendicitis, or other acute process in the abdomen or pel vis.
[2025-04-12 14:44] LABS: Opiate Scree,Urine Neg (NEGATIVE)
[2025-04-12 14:54] LABS: Amphetamine Screen, Urine Neg (NEGATIVE); Barbiturate Scree,Urine Neg (NEGATIVE); Benzodiazephine Screen, Urine Neg (NEGATIVE); Cannabinoid Screen, Urine Neg (NEGATIVE); Cocaine Screen, Urine Neg (NEGATIVE); Phencyclidine Screen, Urine Neg (NEGATIVE)
== END 2025-04-12 12:39 | disposition short-term general hospital (02) ==
LOC: EDBD 08:29 → ER 08:29
DX: S09.93XA Unspecified injury of face, initial encounter (principal); I95.9 Hypotension, unspecified; R41.82 Altered mental status, unspecified; E87.1 Hypo-osmolality and hyponatremia; R74.02 Elevation of levels of lactic acid dehydrogenase [LDH]; R74.01 Elevation of levels of liver transaminase levels; I11.0 Hypertensive heart disease with heart failure; I50.9 Heart failure, unspecified; Z79.899 Other long term (current) drug therapy; F20.9 Schizophrenia, unspecified; Z90.49 Acquired absence of other specified parts of digestive tract; Z79.84 Long term (current) use of oral hypoglycemic drugs; Z79.01 Long term (current) use of anticoagulants; W18.39XA Other fall on same level, initial encounter; Y93.89 Activity, other specified; Y92.89 Other specified places as the place of occurrence of the external cause; Y99.8 Other external cause status
CPT/HCPCS: 36415; 70450; 70486; 71045; 72125; 74176; 80053; 80307; 80320; 81001; 82140; 82550; 82947; 83605; 83735; 83880; 84484; 85007; 85027; 85610; 85730; 96361; 96365; 96375; 96376; 99285; J0696; J1938; J1940; J2310; J7030; 82962